=== PATIENT | female | born 1950 | race Hispanic/Latino ===

== ENCOUNTER 2018-07-05 16:03 | Observation (INO) | payer OTHER ==
--- OUTSIDE RECORDS SUMMARY | 2018-07-05 16:06 | XMS REPORT ---
:1950 Author Organization [facility] Address [address] [place] [address] Care Team Providers Name Role Phone CHRISTIAN MAXWELL Unavailable Unavailable Problems This patient has no known problems. Allergies, Adverse Reactions, Alerts This patient has no known allergies or adverse reactions. Medications This patient has no known medications. Results Test Description Test Time Test Comments Text Results Atomic Results Result Comments CT, CHEST, WITH 2017-12-08 16:25:00 FINAL REPORT PATIENT ID: CONTRAST [id number] CT of the chest, abdomen, with contrast Clinical History: history of lap band, concern for displacement Technique: CT of the chest and abdomen is performed with intravenous contrast administration. This exam was performed according to our departmental dose optimization program which includes automated exposure control, adjustment of the mA and/or kV according to patient's size and/or use of iterative reconstructive technique. Comparison Film: Chest radiograph dated February 17, 2012 Discussion: Visualized thyroid gland is unremarkable. No supraclavicular, axillary, mediastinal or hilar lymphadenopathy. Heart and pericardium are unremarkable. There is a tiny hiatal hernia. Distal esophagus appears mildly thick walled. There are trace bilateral pleural effusions, associated with relaxation atelectasis of the adjacent lower lobes. No mass or consolidation is identified in the aerated portion of the long. No bronchiectasis, or bronchial wall thickening. No liver lesion is identified. No biliary ductal dilatation. The gallbladder is distended, no definite radiopaque stone is seen. Spleen, pancreas and adrenal glands are unremarkable. Kidneys demonstrate no mass, hydronephrosis or radiopaque stone. There is a gastric band, without evidence for displacement, or perforation. Surgical clips are also noted in the gastric fundal region. No bowel obstruction. Note is made of colonic diverticulosis. There is no ascites, or free air. No lymphadenopathy. Osseous structures demonstrate degenerative changes. Impression: Status post gastric banding. There is a tiny hiatal hernia. Distal esophagus appears slightly thick walled, correlate clinically for esophagitis. Correlation with endoscopy can also be considered. Trace bilateral pleural effusions. Nonspecific distention of the gallbladder. Colonic diverticulosis. Signed: Juliane Hinton Verified Date/Time: 12/08/2017 16:25:55 Reading Location: [facility] C013Y CT Body Reading Room , ABDOMEN, WITH 2017-12-08 16:25:00 Reason for FINAL REPORT PATIENT ID: CONTRAST exam:->history of lap [id number] CT of the band, concern for chest, abdomen, with displacement contrast Clinical History: history of lap band, concern for displacement Technique: CT of the chest and abdomen is performed with intravenous contrast administration. This exam was performed according to our departmental dose optimization program which includes automated exposure control, adjustment of the mA and/or kV according to patient's size and/or use of iterative reconstructive technique. Comparison Film: Chest radiograph dated February 17, 2012 Discussion: Visualized thyroid gland is unremarkable. No supraclavicular, axillary, mediastinal or hilar lymphadenopathy. Heart and pericardium are unremarkable. There is a tiny hiatal hernia. Distal esophagus appears mildly thick walled. There are trace bilateral pleural effusions, associated with relaxation atelectasis of the adjacent lower lobes. No mass or consolidation is identified in the aerated portion of the long. No bronchiectasis, or bronchial wall thickening. No liver lesion is identified. No biliary ductal dilatation. The gallbladder is distended, no definite radiopaque stone is seen. Spleen, pancreas and adrenal glands are unremarkable. Kidneys demonstrate no mass, hydronephrosis or radiopaque stone. There is a gastric band, without evidence for displacement, or perforation. Surgical clips are also noted in the gastric fundal region. No bowel obstruction. Note is made of colonic diverticulosis. There is no ascites, or free air. No lymphadenopathy. Osseous structures demonstrate degenerative changes. Impression: Status post gastric banding. There is a tiny hiatal hernia. Distal esophagus appears slightly thick walled, correlate clinically for esophagitis. Correlation with endoscopy can also be considered. Trace bilateral pleural effusions. Nonspecific distention of the gallbladder. Colonic diverticulosis. Signed: Mary Jane, Juliane MDReport Verified Date/Time: 12/08/2017 16:25:55 Reading Location: [facility] B1 C013Y CT Body Reading Room C METABOLIC PANEL 2017-12-08 07:08:00 Test Item Value Reference Range Comments SODIUM (BEAKER) (test 145 meq/L 136-145 gbnv=638) POTASSIUM (BEAKER) (test 3.8 meq/L 3.5-5.1 clgy=462) CHLORIDE (BEAKER) (test 117 meq/L 98-107 ogty=077) CO2 (BEAKER) (test pypm=487) 20 meq/L 22-29 BLOOD UREA NITROGEN (BEAKER) 8 mg/dL 7-21 (test abln=243) CREATININE (BEAKER) (test 0.82 mg/dL 0.57-1.25 czun=687) GLUCOSE RANDOM (BEAKER) 72 mg/dL 70-105 (test kuoa=596) CALCIUM (BEAKER) (test 8.3 mg/dL 8.4-10.2 lzds=730) EGFR (BEAKER) (test 69 mL/min/1.73 sq m ESTIMATED GFR IS NOT xggg=9850) ACCURATE CREATININE CLEARANCE IN PREDICTING GLOMERULAR FILTRATION RATE. ESTIMATED GFR IS NOT APPLICABLE FOR DIALYSIS PATIENTS. CBC (HEMOGRAM ONLY)2017-12-08 06:40:00 Test Item Value Reference Range Comments WHITE BLOOD CELL COUNT (BEAKER) (test njvk=315) 8.9 K/ L 3.5-10.5 RED BLOOD CELL COUNT (BEAKER) (test gtug=350) 3.04 M/ L 3.93-5.22 HEMOGLOBIN (BEAKER) (test hres=464) 8.7 GM/DL 11.2-15.7 HEMATOCRIT (BEAKER) (test dcfk=041) 29.3 % 34.1-44.9 MEAN CORPUSCULAR VOLUME (BEAKER) (test upzo=135) 96.4 fL 79.4-94.8 MEAN CORPUSCULAR HEMOGLOBIN (BEAKER) (test 28.6 pg 25.6-32.2 sens=939) MEAN CORPUSCULAR HEMOGLOBIN CONC (BEAKER) (test 29.7 GM/DL 32.2-35.5 hsqf=522) RED CELL DISTRIBUTION WIDTH (BEAKER) (test 16.1 % 11.7-14.4 lhhf=166) PLATELET COUNT (BEAKER) (test bdyc=639) 191 K/CU MM 150-450 MEAN PLATELET VOLUME (BEAKER) (test hmec=749) 12.0 fL 9.4-12.3 NUCLEATED RED BLOOD CELLS (BEAKER) (test 0 /100 WBC 0-0 tvys=880) BASIC METABOLIC [id number] 07:18:00 Test Item Value Reference Range Comments SODIUM (BEAKER) (test 144 meq/L 136-145 jkem=394) POTASSIUM (BEAKER) (test 3.6 meq/L 3.5-5.1 njxm=627) CHLORIDE (BEAKER) (test 119 meq/L 98-107 pkfe=869) CO2 (BEAKER) (test 20 meq/L 22-29 ftlv=293) BLOOD UREA NITROGEN 10 mg/dL 7-21 (BEAKER) (test skiv=617) CREATININE (BEAKER) (test 0.77 mg/dL 0.57-1.25 byvc=860) GLUCOSE RANDOM (BEAKER) 73 mg/dL 70-105 (test zgap=265) CALCIUM (BEAKER) (test 8.1 mg/dL 8.4-10.2 uutl=752) EGFR (BEAKER) (test 74 mL/min/1.73 sq m ESTIMATED GFR IS NOT nvan=1590) ACCURATE CREATININE CLEARANCE IN PREDICTING GLOMERULAR FILTRATION RATE. ESTIMATED GFR IS NOT APPLICABLE FOR DIALYSIS PATIENTS. CBC (HEMOGRAM ONLY)2017-12-07 06:50:00 Test Item Value Reference Range Comments WHITE BLOOD CELL COUNT (BEAKER) (test jdeb=832) 6.7 K/ L 3.5-10.5 RED BLOOD CELL COUNT (BEAKER) (test rarv=472) 2.80 M/ L 3.93-5.22 HEMOGLOBIN (BEAKER) (test onur=310) 8.2 GM/DL 11.2-15.7 HEMATOCRIT (BEAKER) (test pmyr=437) 26.2 % 34.1-44.9 MEAN CORPUSCULAR VOLUME (BEAKER) (test rxlj=129) 93.6 fL 79.4-94.8 MEAN CORPUSCULAR HEMOGLOBIN (BEAKER) (test 29.3 pg 25.6-32.2 xaay=389) MEAN CORPUSCULAR HEMOGLOBIN CONC (BEAKER) (test 31.3 GM/DL 32.2-35.5 tomm=277) RED CELL DISTRIBUTION WIDTH (BEAKER) (test 15.9 % 11.7-14.4 ogvn=970) PLATELET COUNT (BEAKER) (test hohl=303) 192 K/CU MM 150-450 MEAN PLATELET VOLUME (BEAKER) (test hhhf=797) 10.9 fL 9.4-12.3 NUCLEATED RED BLOOD CELLS (BEAKER) (test 0 /100 WBC 0-0 lwmb=456) URINE [id number] 13:00:00 Test Item Value Reference Range Comments CULTURE (BEAKER) (test acns=7886) >100,000 col/mL skin caden BASIC METABOLIC [id number] 08:35:00 Test Item Value Reference Range Comments SODIUM (BEAKER) (test 143 meq/L 136-145 wdho=493) POTASSIUM (BEAKER) (test 3.6 meq/L 3.5-5.1 dfmn=620) CHLORIDE (BEAKER) (test 117 meq/L 98-107 nteq=658) CO2 (BEAKER) (test 21 meq/L 22-29 vhma=542) BLOOD UREA NITROGEN 13 mg/dL 7-21 (BEAKER) (test cjwk=893) CREATININE (BEAKER) (test 0.73 mg/dL 0.57-1.25 ifmb=715) GLUCOSE RANDOM (BEAKER) 73 mg/dL 70-105 (test owfi=836) CALCIUM (BEAKER) (test 7.9 mg/dL 8.4-10.2 srjv=191) EGFR (BEAKER) (test 79 mL/min/1.73 sq m ESTIMATED GFR IS NOT pksq=1835) ACCURATE CREATININE CLEARANCE IN PREDICTING GLOMERULAR FILTRATION RATE. ESTIMATED GFR IS NOT APPLICABLE FOR DIALYSIS PATIENTS. CBC (HEMOGRAM ONLY)2017-12-06 07:47:00 Test Item Value Reference Range Comments WHITE BLOOD CELL COUNT (BEAKER) (test xnun=664) 6.7 K/ L 3.5-10.5 RED BLOOD CELL COUNT (BEAKER) (test aowd=525) 2.78 M/ L 3.93-5.22 HEMOGLOBIN (BEAKER) (test reer=490) 8.1 GM/DL 11.2-15.7 HEMATOCRIT (BEAKER) (test zmst=459) 25.9 % 34.1-44.9 MEAN CORPUSCULAR VOLUME (BEAKER) (test tsvb=293) 93.2 fL 79.4-94.8 MEAN CORPUSCULAR HEMOGLOBIN (BEAKER) (test 29.1 pg 25.6-32.2 joie=361) MEAN CORPUSCULAR HEMOGLOBIN CONC (BEAKER) (test 31.3 GM/DL 32.2-35.5 cccj=465) RED CELL DISTRIBUTION WIDTH (BEAKER) (test 15.8 % 11.7-14.4 qwpa=611) PLATELET COUNT (BEAKER) (test okrv=377) 177 K/CU MM 150-450 MEAN PLATELET VOLUME (BEAKER) (test tkil=206) 11.2 fL 9.4-12.3 NUCLEATED RED BLOOD CELLS (BEAKER) (test 0 /100 WBC 0-0 krbz=975) VITAMIN B12 AND [id number] 12:04:00 Test Item Value Reference Range Comments VITAMIN B12 (BEAKER) (test xmse=041) > pg/mL 213-816 FOLATE (BEAKER) (test bxgp=258) 16.3 ng/mL >=7.0 [id number] 10:53:00 Test Item Value Reference Range Comments FERRITIN (BEAKER) (test wzwb=326) 59 ng/mL 5-275 IRON, TIBC, % SAT. (WITHOUT FERRITIN)2017-12-05 10:19:00 Test Item Value Reference Range Comments IRON (BEAKER) (test utun=501) 56 ug/dL 40-160 TOTAL IRON BINDING CAPACITY (BEAKER) (test 290 ug/dL 250-450 qfne=754) IRON % SATURATION (2) (BEAKER) (test hvvp=7278) 19 % 20-55 BASIC METABOLIC [id number] 07:24:00 Test Item Value Reference Range Comments SODIUM (BEAKER) (test 140 meq/L 136-145 oazb=058) POTASSIUM (BEAKER) (test 3.7 meq/L 3.5-5.1 heye=891) CHLORIDE (BEAKER) (test 113 meq/L 98-107 wakb=120) CO2 (BEAKER) (test 19 meq/L 22-29 enii=792) BLOOD UREA NITROGEN 26 mg/dL 7-21 (BEAKER) (test uxwj=974) CREATININE (BEAKER) (test 0.81 mg/dL 0.57-1.25 etrj=090) GLUCOSE RANDOM (BEAKER) 82 mg/dL 70-105 (test homk=787) CALCIUM (BEAKER) (test 7.9 mg/dL 8.4-10.2 higy=084) EGFR (BEAKER) (test 70 mL/min/1.73 sq m ESTIMATED GFR IS NOT nuca=8668) ACCURATE CREATININE CLEARANCE IN PREDICTING GLOMERULAR FILTRATION RATE. ESTIMATED GFR IS NOT APPLICABLE FOR DIALYSIS PATIENTS. CBC (HEMOGRAM ONLY)2017-12-05 06:10:00 Test Item Value Reference Range Comments WHITE BLOOD CELL COUNT (BEAKER) (test thdz=528) 9.4 K/ L 3.5-10.5 RED BLOOD CELL COUNT (BEAKER) (test fiaw=738) 2.51 M/ L 3.93-5.22 HEMOGLOBIN (BEAKER) (test jmhf=879) 7.3 GM/DL 11.2-15.7 HEMATOCRIT (BEAKER) (test aems=073) 23.6 % 34.1-44.9 MEAN CORPUSCULAR VOLUME (BEAKER) (test mxru=553) 94.0 fL 79.4-94.8 MEAN CORPUSCULAR HEMOGLOBIN (BEAKER) (test 29.1 pg 25.6-32.2 vqte=533) MEAN CORPUSCULAR HEMOGLOBIN CONC (BEAKER) (test 30.9 GM/DL 32.2-35.5 wosz=627) RED CELL DISTRIBUTION WIDTH (BEAKER) (test 15.1 % 11.7-14.4 tnio=825) PLATELET COUNT (BEAKER) (test tqfv=861) 197 K/CU MM 150-450 MEAN PLATELET VOLUME (BEAKER) (test puox=810) 11.5 fL 9.4-12.3 NUCLEATED RED BLOOD CELLS (BEAKER) (test 0 /100 WBC 0-0 jryy=273) HEMOGLOBIN AND [id number] 23:13:00 Test Item Value Reference Range Comments HEMOGLOBIN (BEAKER) (test ctqj=919) 7.9 GM/DL 11.2-15.7 HEMATOCRIT (BEAKER) (test cuzx=329) 25.8 % 34.1-44.9 [id number] 10:35:00 Test Item Value Reference Range Comments PHOSPHORUS (BEAKER) (test tmdk=653) 2.1 mg/dL 2.3-4.7 [id number] 10:35:00 Test Item Value Reference Range Comments MAGNESIUM (BEAKER) (test gprx=615) 1.9 mg/dL 1.6-2.6 BASIC METABOLIC [id number] 10:35:00 Test Item Value Reference Range Comments SODIUM (BEAKER) (test 142 meq/L 136-145 bsrh=907) POTASSIUM (BEAKER) (test 3.8 meq/L 3.5-5.1 zkzz=886) CHLORIDE (BEAKER) (test 113 meq/L 98-107 gqyo=488) CO2 (BEAKER) (test 21 meq/L 22-29 pftf=015) BLOOD UREA NITROGEN 38 mg/dL 7-21 (BEAKER) (test pazg=356) CREATININE (BEAKER) (test 0.82 mg/dL 0.57-1.25 igcv=541) GLUCOSE RANDOM (BEAKER) 83 mg/dL 70-105 (test jzjx=133) CALCIUM (BEAKER) (test 8.3 mg/dL 8.4-10.2 xcdu=597) EGFR (BEAKER) (test 69 mL/min/1.73 sq m ESTIMATED GFR IS NOT phum=0263) ACCURATE CREATININE CLEARANCE IN PREDICTING GLOMERULAR FILTRATION RATE. ESTIMATED GFR IS NOT APPLICABLE FOR DIALYSIS PATIENTS. CBC (HEMOGRAM ONLY)2017-12-04 10:17:00 Test Item Value Reference Range Comments WHITE BLOOD CELL COUNT (BEAKER) (test ixfm=698) 9.7 K/ L 3.5-10.5 RED BLOOD CELL COUNT (BEAKER) (test buoc=127) 2.95 M/ L 3.93-5.22 HEMOGLOBIN (BEAKER) (test dqpm=730) 8.5 GM/DL 11.2-15.7 HEMATOCRIT (BEAKER) (test gffw=400) 27.6 % 34.1-44.9 MEAN CORPUSCULAR VOLUME (BEAKER) (test tyzp=798) 93.6 fL 79.4-94.8 MEAN CORPUSCULAR HEMOGLOBIN (BEAKER) (test 28.8 pg 25.6-32.2 osiy=717) MEAN CORPUSCULAR HEMOGLOBIN CONC (BEAKER) (test 30.8 GM/DL 32.2-35.5 nqao=789) RED CELL DISTRIBUTION WIDTH (BEAKER) (test 15.0 % 11.7-14.4 zuel=571) PLATELET COUNT (BEAKER) (test ovkz=111) 240 K/CU MM 150-450 MEAN PLATELET VOLUME (BEAKER) (test cenr=626) 11.2 fL 9.4-12.3 NUCLEATED RED BLOOD CELLS (BEAKER) (test 0 /100 WBC 0-0 wump=561) URINALYSIS W/ [id number] 08:24:00 Test Item Value Reference Range Comments COLOR (BEAKER) (test jdju=824) Light Yellow CLARITY (BEAKER) (test hptb=342) Clear SPECIFIC GRAVITY UA (BEAKER) (test 1.025 1.001-1.035 bgca=204) PH UA (BEAKER) (test fljz=021) 5.0 5.0-8.0 PROTEIN UA (BEAKER) (test iqlz=074) Negative Negative GLUCOSE UA (BEAKER) (test hlwr=225) Negative Negative KETONES UA (BEAKER) (test ptfm=203) Negative Negative BILIRUBIN UA (BEAKER) (test afun=510) Negative Negative BLOOD UA (BEAKER) (test unzi=613) Small Negative NITRITE UA (BEAKER) (test zvpz=827) Positive Negative LEUKOCYTE ESTERASE UA (BEAKER) (test Moderate Negative vcxm=018) UROBILINOGEN UA (BEAKER) (test urue=579) 0.2 mg/dL 0.2-1.0 RBC UA (BEAKER) (test canx=654) 1 /HPF WBC UA (BEAKER) (test qocp=437) 5 /HPF BACTERIA (BEAKER) (test snag=909) Many MUCUS (BEAKER) (test tovs=3586) Many SOURCE(BEAKER) (test ppqd=4917) Urine, Clean Catch BASIC METABOLIC [id number] 03:41:00 Test Item Value Reference Range Comments SODIUM (BEAKER) (test 140 meq/L 136-145 qiwq=284) POTASSIUM (BEAKER) (test 4.2 meq/L 3.5-5.1 Specimen slightly cdni=932) hemolyzed CHLORIDE (BEAKER) (test 109 meq/L 98-107 kvjp=059) CO2 (BEAKER) (test 21 meq/L 22-29 esof=845) BLOOD UREA NITROGEN 47 mg/dL 7-21 (BEAKER) (test xsrd=360) CREATININE (BEAKER) (test 0.84 mg/dL 0.57-1.25 Specimen slightly yyax=300) hemolyzed GLUCOSE RANDOM (BEAKER) 90 mg/dL 70-105 (test ircz=175) CALCIUM (BEAKER) (test 8.5 mg/dL 8.4-10.2 ngkc=231) EGFR (BEAKER) (test 67 mL/min/1.73 sq m ESTIMATED GFR IS NOT fxot=2186) ACCURATE CREATININE CLEARANCE IN PREDICTING GLOMERULAR FILTRATION RATE. ESTIMATED GFR IS NOT APPLICABLE FOR DIALYSIS PATIENTS. HEPATIC FUNCTION [id number] 03:41:00 Test Item Value Reference Range Comments TOTAL PROTEIN (BEAKER) (test 6.4 gm/dL 6.0-8.3 Specimen slightly hemolyzed helx=984) ALBUMIN (BEAKER) (test 3.4 g/dL 3.5-5.0 Specimen slightly hemolyzed pevs=1933) BILIRUBIN TOTAL (BEAKER) (test 0.4 mg/dL 0.2-1.2 Specimen slightly hemolyzed wajw=128) BILIRUBIN DIRECT (BEAKER) (test 0.1 mg/dL 0.1-0.5 Specimen slightly hemolyzed kwsm=965) ALKALINE PHOSPHATASE (BEAKER) 98 U/L 40-150 (test wsgr=006) AST (SGOT) (BEAKER) (test 19 U/L 5-34 Specimen slightly hemolyzed fpcm=554) ALT (SGPT) (BEAKER) (test 17 U/L 6-55 Specimen slightly hemolyzed sire=667) PROTHROMBIN [id number] 02:41:00 Test Item Value Reference Range Comments PROTIME (BEAKER) (test ersk=056) 15.2 seconds 11.7-14.7 INR (BEAKER) (test eomo=696) 1.2 <=5.9 RECOMMENDED COUMADIN/WARFARIN INR THERAPY RANGESSTANDARD DOSE: 2.0 - 3.0 Includes: PROPHYLAXIS forvenous thrombosis, systemic embolization; TREATMENT for venous thrombosis and/or pulmonary embolus.HIGH RISK: Target INR is 2.5-3.5 for patients with mechanical heart valves.CBC W/PLT COUNT & AUTO [id number] 02:38:00 Test Item Value Reference Range Comments WHITE BLOOD CELL COUNT (BEAKER) (test iglw=903) 14.7 K/ L 3.5-10.5 RED BLOOD CELL COUNT (BEAKER) (test bmjg=669) 3.24 M/ L 3.93-5.22 HEMOGLOBIN (BEAKER) (test ujzf=273) 9.3 GM/DL 11.2-15.7 HEMATOCRIT (BEAKER) (test ljgv=438) 30.1 % 34.1-44.9 MEAN CORPUSCULAR VOLUME (BEAKER) (test cpts=853) 92.9 fL 79.4-94.8 MEAN CORPUSCULAR HEMOGLOBIN (BEAKER) (test 28.7 pg 25.6-32.2 aiuc=194) MEAN CORPUSCULAR HEMOGLOBIN CONC (BEAKER) (test 30.9 GM/DL 32.2-35.5 pmbx=093) RED CELL DISTRIBUTION WIDTH (BEAKER) (test 15.0 % 11.7-14.4 xidu=332) PLATELET COUNT (BEAKER) (test qnfc=770) 268 K/CU MM 150-450 MEAN PLATELET VOLUME (BEAKER) (test pdmc=003) 12.0 fL 9.4-12.3 NUCLEATED RED BLOOD CELLS (BEAKER) (test 0 /100 WBC 0-0 imrr=708) NEUTROPHILS RELATIVE PERCENT (BEAKER) (test 63 % prwp=067) LYMPHOCYTES RELATIVE PERCENT (BEAKER) (test 27 % oqxg=027) MONOCYTES RELATIVE PERCENT (BEAKER) (test 8 % ckra=026) EOSINOPHILS RELATIVE PERCENT (BEAKER) (test 1 % sewz=290) BASOPHILS RELATIVE PERCENT (BEAKER) (test 1 % jqdt=148) NEUTROPHILS ABSOLUTE COUNT (BEAKER) (test 9.28 K/ L 1.56-6.13 jtez=340) LYMPHOCYTES ABSOLUTE COUNT (BEAKER) (test 4.03 K/ L 1.18-3.74 vkuq=058) MONOCYTES ABSOLUTE COUNT (BEAKER) (test 1.11 K/ L 0.24-0.36 ugbc=529) EOSINOPHILS ABSOLUTE COUNT (BEAKER) (test 0.15 K/ L 0.04-0.36 cenx=571) BASOPHILS ABSOLUTE COUNT (BEAKER) (test 0.08 K/ L 0.01-0.08 pjtt=048) IMMATURE GRANULOCYTES-RELATIVE PERCENT (BEAKER) 0 % 0-1 (test eeau=5635)
--- OUTSIDE RECORDS SUMMARY | 2018-07-05 16:06 | XMS REPORT | Clinical Summary ---
:1950 Author Organization [facility] Address [address] [place] [address] Phone Care Team Providers Name Role Phone Unavailable Primary Care Provider Unavailable Allergies No Known Allergies Current Medications Prescription Sig. Disp. Refills Start Date End Date Status solifenacin (VESICARE) Take 10 mg by Active 10 MG mouth daily. tabletIndications: Urinary Urge Incontinence hydroxychloroquine Take 100 mg by Active (PLAQUENIL) 200 mg mouth 2 (two) tabletIndications: times daily. Systemic Lupus Erythematosus pregabalin (LYRICA) 100 Take 100 mg by Active MG capsuleIndications: mouth 2 (two) SLE times daily. predniSONE (DELTASONE) Take 5 mg by mouth Active 2.5 MG daily. tabletIndications: Systemic Lupus Erythematosus BELIMUMAB (BENLYSTA Inject Active IV)Indications: intravenously Systemic Lupus every 30 (thirty) Erythematosus days. levothyroxine Take 50 mcg by Active (SYNTHROID, LEVOTHROID) mouth Every 50 MCG morning on an tabletIndications: empty stomach. hypothyroidism sertraline (ZOLOFT) 25 Take 100 mg by Active MG tabletIndications: mouth daily. major depressive disorder QUEtiapine (SEROQUEL) Take 100 mg by Active 100 MG mouth nightly. tabletIndications: Insomnia C,E,ZINC,COPPER Take 1 tablet by Active 11/PVITK4C/LUT (OCUVITE mouth daily. ADULT 50+ ORAL) omega-3 fatty acids Take 1 g by mouth Active (OMEGA 3) 1,000 mg Cap daily. cyanocobalamin-cobamami Place 1 tablet Active de (B12) 5,000-100 mcg under the tongue Lozg daily. cholecalciferol, Take 1,000 Units Active vitamin D3, (VITAMIN by mouth daily. D3) 1,000 unit capsuleIndications: Vitamin D Deficiency levomefolate-algal oil Take 1 tablet by Active (DEPLIN, ALGAL OIL,) mouth daily. 7.5-90.314 mg Cap traMADol (ULTRAM) 50 mg Take 50 mg by Active tablet mouth every 6 (six) hours as needed for Pain. cyclobenzaprine Take 10 mg by Active (FLEXERIL) 10 MG tablet mouth 3 (three) times daily as needed for Muscle spasms. acetaminophen (TYLENOL) Take 650 mg by Active 325 MG mouth every 6 tabletIndications: Back (six) hours as Pain needed for Pain. pantoprazole (PROTONIX) Take 1 tablet (40 60 tablet 1 12/08/2017 01/07/20 40 MG tablet mg total) by mouth 18 2 (two) times daily for 30 days. Active Problems Problem Noted Date UGIB (upper gastrointestinal bleed) 12/03/2017 Acute on chronic anemia due to blood loss and iron def. 12/03/2017 Rheumatoid arthritis (HCC) 11/16/2007 Thyroid disease Lupus Encounters Date Type Specialty Care Team Description 01/11/2018 [facility] Gastroenterology Jack Hester Encounter MD Ross 01/11/2018 Procedure Pass Gastroenterology 01/11/2018 Surgery GastroenterJack Vasquez UPPER ENDOSCOPY MD Ross 01/08/2018 Anesthesia Event Gastroenterology Ramírez Cuello MD 01/07/2018 Hospital Pre-Admission Testing Encounter 12/07/2017 Procedure Pass Gastroenterology 12/07/2017 Surgery Gastroenterology Royal Barahona UPPER ENDOSCOPY MD Ember 12/06/2017 Anesthesia Event Gastroenterology Shilpa Ramirez MD 12/05/2017 Procedure Pass Gastroenterology 12/04/2017 Anesthesia Event Gastroenterology Livan Jean CRNA 12/04/2017 Procedure Pass Gastroenterology 12/04/2017 Surgery Gastroenterology Jack Hester UPPER ENDOSCOPY MD Ross 12/03/2017 [facility] UGIB (upper - Encounter Medicine MD Dara gastrointestinal 12/08/2017 Brann, bleed);Ulcer of Christopher esophagus with MD Wil bleeding;Acute blood [place], loss anemia MD Timothy after 07/04/2017 Immunizations Name Dates Previously Given Next Due Influenza High Dose Preservative Free IM 12/05/2017 Family History Medical History Relation Name Comments Kidney disease Father Cancer Mother Heart disease Mother Hypertension Mother Relation Name Status Comments Father Mother Social History Tobacco Use Types Packs/Day Years Used Date Former Smoker 0.25 1 Quit: 11/16/1966 Smokeless Tobacco: Never Used Tobacco Cessation: Counseling Given: No Alcohol Use Drinks/Week oz/Week Comments No Sex Assigned at Date Recorded Not on file Last Filed Vital Signs Vital Sign Reading Time Taken Blood Pressure 135/65 01/11/2018 11:26 AM EDUCATIONAL DIAGNOSTICIAN Pulse 78 01/11/2018 11:26 AM EDUCATIONAL DIAGNOSTICIAN Temperature 36.7 C (98 F) 01/11/2018 11:26 AM EDUCATIONAL DIAGNOSTICIAN Respiratory Rate 17 01/11/2018 11:26 AM EDUCATIONAL DIAGNOSTICIAN Oxygen Saturation 97% 01/11/2018 11:26 AM EDUCATIONAL DIAGNOSTICIAN Inhaled Oxygen Concentration - - Weight 124.1 kg (273 lb 11.2 oz) 01/11/2018 9:17 AM EDUCATIONAL DIAGNOSTICIAN Height 157.5 cm (5' 2") 01/11/2018 9:17 AM EDUCATIONAL DIAGNOSTICIAN Body Mass Index 50.06 01/11/2018 9:17 AM EDUCATIONAL DIAGNOSTICIAN Plan of Treatment Not on file Procedures Procedure Name Priority Date/Time Associated Diagnosis Comments COLONOSCOPY 01/11/2018 10:00 AM EDUCATIONAL DIAGNOSTICIAN Malignant neoplasm of esophagus, unspecified location (HCC) UPPER ENDOSCOPY 01/11/2018 10:00 AM EDUCATIONAL DIAGNOSTICIAN Malignant neoplasm of esophagus, unspecified location (HCC) UPPER ENDOSCOPY 12/07/2017 8:00 AM EDUCATIONAL DIAGNOSTICIAN ESOPHAGEAL ULCER Case Notes ADD ON CASE BY DR HESTER UPPER ENDOSCOPY 12/04/2017 2:00 PM EDUCATIONAL DIAGNOSTICIAN GI Bleed after 07/04/2017 Results REPORT OF PROCEDURE - ENDOSCOPY URL (01/11/2018 12:02 PM)Only the most recent of4 resultswithin the time period is included.EKG-SCANNED (12/10/2017 1:21 PM) RHYTHM STRIP - SCAN (12/10/2017 1:21 PM)CT abdomen with IV contrast (2017 10:11 AM) Specimen Performing Laboratory GE RIS Narrative FINAL REPORT CT of the chest, abdomen, with contrast Clinical History:history of lap band, concern for displacement Technique: CT of the chest and abdomen is performed with intravenous contrast administration. This exam was performed according to our departmental dose optimization program which includes automated exposure control, adjustment of the mA and/or kV according to patient's size and/or use of iterative reconstructive technique. Comparison Film:Chest radiograph dated February 17, 2012 Discussion: Visualized [...] the gallbladder. Colonic diverticulosis. Signed: Juliane Hinton MD Report Verified Date/Time:12/08/2017 16:25:55 Reading Location: [facility] C013Y CT Body Reading Room Procedure Note Interface, External Ris In - 12/08/2017 4:28 PM EDUCATIONAL DIAGNOSTICIAN FINAL REPORT CT of the chest, abdomen, with contrast [...] the gallbladder. Colonic diverticulosis. Signed: Juliane Hinton MD Report Verified Date/Time: 12/08/2017 16:25:55 Reading Location: [facility] C013Y CT Body Reading Room chest with IV contrast (12/08/2017 10:11 AM) Specimen Performing Laboratory Vascular Therapies Narrative FINAL REPORT CT of the chest, abdomen, with contrast Clinical History:history of lap band, concern for displacement Technique: CT of the chest and abdomen is performed with intravenous contrast administration. This exam was performed according to our departmental dose optimization program which includes automated exposure control, adjustment of the mA and/or kV according to patient's size and/or use of iterative reconstructive technique. Comparison Film:Chest radiograph dated February 17, 2012 Discussion: Visualized [...] the gallbladder. Colonic diverticulosis. Signed: Juliane Hinton MD Report Verified Date/Time:12/08/2017 16:25:55 Reading Location: [facility] C013Y CT Body Reading Room Procedure Note Interface, External Ris In - 12/08/2017 4:28 PM EDUCATIONAL DIAGNOSTICIAN FINAL REPORT CT of the chest, abdomen, with contrast [...] the gallbladder. Colonic diverticulosis. Signed: Juliane Hinton MD Report Verified Date/Time: 12/08/2017 16:25:55 Reading Location: [facility] C013Y CT Body Reading Room (Hemogram only) (12/08/2017 5:56 AM)Only the most recent of5 resultswithin the time period is included. Component Value Ref Range WBC 8.9 3.5 - 10.5 K/L RBC 3.04 (L) 3.93 - 5.22 M/L Hemoglobin 8.7 (L) 11.2 - 15.7 GM/DL Hematocrit 29.3 (L) 34.1 - 44.9 % MCV 96.4 (H) 79.4 - 94.8 fL MCH 28.6 25.6 - 32.2 pg MCHC 29.7 (L) 32.2 - 35.5 GM/DL RDW 16.1 (H) 11.7 - 14.4 % Platelets 191 150 - 450 K/CU MM MPV 12.0 9.4 - 12.3 fL nRBC 0 0 - 0 /100 WBC Specimen Performing Laboratory Blood - Arm, [address] [address] Basic Metabolic Panel (12/08/2017 5:56 AM)Only the most recent of6 resultswithin the time period is included. Component Value Ref Range Sodium 145 136 - 145 meq/L Potassium 3.8 3.5 - 5.1 meq/L Chloride 117 (H) 98 - 107 meq/L CO2 20 (L) 22 - 29 meq/L BUN 8 7 - 21 mg/dL Creatinine 0.82 0.57 - 1.25 mg/dL Glucose 72 70 - 105 mg/dL Calcium 8.3 (L) 8.4 - 10.2 mg/dL EGFR 69Comment: ESTIMATED GFR IS NOT ACCURATE mL/min/1.73 sq m CREATININE CLEARANCE IN PREDICTING GLOMERULAR FILTRATION RATE. ESTIMATED GFR IS NOT APPLICABLE FOR DIALYSIS PATIENTS. Specimen Performing Laboratory Blood - Arm, Left [address] [address] TRANSFUSION SERVICE REPORT - SCAN (12/07/2017 5:41 PM)Only the most recent of3 resultswithin the time period is included.Prepare Leuko-Red RBC (12/06/2017 11: 54 PM) Component Value Ref Range CROSSMATCH COMPATIBLE Unit ABO O Pos UNIT NUMBER [id number] Status TRANSFUSED Blood Bank Product RED BLOOD CELLS PRODUCT CODE [id number] Specimen Performing Laboratory Other SAFET[place]ACE [place] Transfuse Leuko-Red RBC (12/05/2017 1:49 PM)Only the most recent of2 resultswithin the time period is included.Vitamin B12 and Folate (12/05/2017 9: 42 AM) Component Value Ref Range Vitamin B12 >2000 (H) 213 - 816 pg/mL Folate 16.3 >=7.0 ng/mL Specimen Performing Laboratory Blood [address] [address] Iron, TIBC, % sat. (without ferritin) (12/05/2017 9:42 AM) Component Value Ref Range Iron 56 40 - 160 ug/dL TIBC 290 250 - 450 ug/dL Iron % Saturation 19 (L) 20 - 55 % Specimen Performing Laboratory Blood [address] [address] Ferritin (12/05/2017 9:42 AM) Component Value Ref Range Ferritin 59 5 - 275 ng/mL Specimen Performing Laboratory Blood [address] [address] Hemoglobin and hematocrit (12/04/2017 11:04 PM) Component Value Ref Range Hemoglobin 7.9 (L) 11.2 - 15.7 GM/DL Hematocrit 25.8 (L) 34.1 - 44.9 % Specimen Performing Laboratory Blood - Arm, Right [address] [address] Urine culture (12/04/2017 12:35 PM) Component Value Ref Range Result >100,000 col/mL skin caden Specimen Performing Laboratory Urine - Urine, Voided [address] [address] Phosphorus (12/04/2017 9:51 AM) Component Value Ref Range Phosphorus 2.1 (L) 2.3 - 4.7 mg/dL Specimen Performing Laboratory Blood - Arm, [address] [address] Magnesium (12/04/2017 9:51 AM) Component Value Ref Range Magnesium 1.9 1.6 - 2.6 mg/dL Specimen Performing Laboratory Blood - Arm, [address] [address] Urinalysis w/ Microscopic (12/04/2017 6:34 AM) Component Value Ref Range Color, UA Light Yellow Clarity, UA Clear Specific [place], UA 1.025 1.001 - 1.035 pH, UA 5.0 5.0 - 8.0 Protein, UA Negative Negative Glucose, UA Negative Negative Ketones, UA Negative Negative Bilirubin, UA Negative Negative Blood, UA Small (A) Negative Nitrite, UA Positive (A) Negative Leukocytes, UA Moderate (A) Negative Urobilinogen, UA 0.2 0.2 - 1.0 mg/dL RBC, UA 1 /HPF WBC, UA 5 /HPF Bacteria, UA Many Mucus Many Specimen Source Urine, Clean Catch Specimen Performing Laboratory Urine - Urine, Clean Catch [address] [address] Type and screen, automated (12/04/2017 1:37 AM) Component Value Ref Range ABO/RH AUTOMATED (BEAKER) O POSITIVE Ab Scrn NEGATIVE Specimen Performing Laboratory Blood [address] [address] CBC with platelet count + automated diff (12/04/2017 1:37 AM) Component Value Ref Range WBC 14.7 (H) 3.5 - 10.5 K/L RBC 3.24 (L) 3.93 - 5.22 M/L Hemoglobin 9.3 (L) 11.2 - 15.7 GM/DL Hematocrit 30.1 (L) 34.1 - 44.9 % MCV 92.9 79.4 - 94.8 fL MCH 28.7 25.6 - 32.2 pg MCHC 30.9 (L) 32.2 - 35.5 GM/DL RDW 15.0 (H) 11.7 - 14.4 % Platelets 268 150 - 450 K/CU MM MPV 12.0 9.4 - 12.3 fL nRBC 0 0 - 0 /100 WBC % Neutros 63 % % Lymphs 27 % % Monos 8 % % Eos 1 % % Baso 1 % # Neutros 9.28 (H) 1.56 - 6.13 K/L # Lymphs 4.03 (H) 1.18 - 3.74 K/L # Monos 1.11 (H) 0.24 - 0.36 K/L # Eos 0.15 0.04 - 0.36 K/L # Baso 0.08 0.01 - 0.08 K/L Immature Granulocytes-Relative 0 0 - 1 % Specimen Performing Laboratory Blood [address] [address] Prothrombin time/INR (12/04/2017 1:37 AM) Component Value Ref Range Protime 15.2 (H) 11.7 - 14.7 seconds INR 1.2 <=5.9 Specimen Performing Laboratory Blood [address] [address] Narrative RECOMMENDED COUMADIN/WARFARIN INR THERAPY RANGES STANDARD DOSE: 2.0 - 3.0 Includes: PROPHYLAXIS for venous thrombosis, systemic embolization; TREATMENT for venous thrombosis and/or pulmonary embolus. HIGH RISK: Target INR is 2.5-3.5 for patients with mechanical heart valves. CBC with platelet count + automated diff (12/04/2017 1:37 AM) Specimen Performing Laboratory Blood Narrative The following orders were created for panel order CBC with platelet count + automated diff. Procedure Abnormality Status --------- ------ CBC with platelet count ...[[id number]]AbnormalFinal result Please view results for these tests on the individual orders. Hepatic function panel (12/04/2017 1:37 AM) Component Value Ref Range Protein, Total 6.4Comment: Specimen slightly hemolyzed 6.0 - 8.3 gm/dL Albumin 3.4 (L)Comment: Specimen slightly hemolyzed 3.5 - 5.0 g/dL Total Bilirubin 0.4Comment: Specimen slightly hemolyzed 0.2 - 1.2 mg/dL Bilirubin, Direct 0.1Comment: Specimen slightly hemolyzed 0.1 - 0.5 mg/dL Alkaline Phosphatase 98 40 - 150 U/L AST 19Comment: Specimen slightly hemolyzed 5 - 34 U/L ALT 17Comment: Specimen slightly hemolyzed 6 - 55 U/L Specimen Performing Laboratory Blood [facility] [address] [address] after 07/04/2017
--- OUTSIDE RECORDS SUMMARY | 2018-07-05 16:06 | XMS REPORT | Clinical Summary ---
:1950 Author Organization [facility] Address [address] [place] [address] Care Team Providers Name Role Phone Satnam Mcpherson MD Primary Care Provider Allergies No Known Allergies Current Medications Prescription Sig. Disp. Refills Start Date End Date Status traMADol (ULTRAM) 50 mg Take 50 mg by 2 09/04/2017 Active tablet mouth 2 (two) times a day as needed. for pain VESICARE 5 mg tablet Take 5 mg by 0 07/28/2017 Active mouth once daily. sertraline (ZOLOFT) 100 MG Take 100 mg by 0 09/19/2017 Active tablet mouth once daily. QUEtiapine (SEROquel) 100 Take 100 mg by 0 07/27/2017 Active MG tablet mouth nightly. LYRICA 100 mg capsule Take 100 mg by 1 09/10/2017 Active mouth 2 (two) times a day. methylPREDNISolone (MEDROL TAKE 6 TABLETS ON 0 09/07/2017 Active DOSEPAK) 4 mg tablet DAY 1 DIRECTED ON PACKAGE AND DECREASE BY 1 TAB EACH DAY FOR A TOTAL OF 6 DAYS levothyroxine (SYNTHROID, Take 50 mcg by 0 07/28/2017 Active LEVOXYL) 50 mcg tablet mouth once daily. hydroxychloroquine Take 200 mg by 1 08/21/2017 Active (PLAQUENIL) 200 mg tablet mouth 2 (two) times a day. cyclobenzaprine (FLEXERIL) Take 10 mg by 5 09/04/2017 Active 10 mg tablet mouth 3 (three) times a day as needed. Active Problems No known active problems Encounters Date Type Specialty Care Team Description 03/17/2018 Hospital Encounter Radiology Marco Wagner Lupus encephalitis; MD Alberto Sicca syndrome; Need for prophylactic chemotherapy 03/17/2018 Transcribe Orders Radiology Marco Wagner Lupus encephalitis ( Primary Dx); MD Alberto Sicca syndrome; Need for prophylactic chemotherapy 11/25/2017 Office Visit Orthopedic Surgery Jori Mcclellan Primary osteoarthritis of left knee (Primary Dx); MD URMILA Stress fracture of left ankle with routine healing, subsequent encounter; Chronic pain of left knee 10/21/2017 Office Visit Orthopedic Surgery Jori Mcclellan Stress fracture of left MD URMILA ankle with routine healing, subsequent encounter (Primary Dx) 10/21/2017 Documentation Orthopedic Surgery Ross, Cast Removal RIVAS Thakur 10/02/2017 Documentation Orthopedic Surgery Jose D Cast/Splint Application RIVAS Thakur 09/30/2017 Office Visit Orthopedic Surgery Jori Mcclellan Stress fracture, left ankle, initial encounter for fracture (Primary Dx); MD URMILA Right foot pain; Closed fracture of left ankle, initial encounter after 07/04/2017 Family History Medical History Relation Name Comments Kidney disease Father Arthritis Mother Cancer Mother Relation Name Status Comments Father Mother Social History Tobacco Use Types Packs/Day Years Used Date Never Smoker Alcohol Use Drinks/Week oz/Week Comments No Sex Assigned at Date Recorded Not on file Last Filed Vital Signs Vital Sign Reading Time Taken Blood Pressure - - Pulse - - Temperature - - Respiratory Rate - - Oxygen Saturation - - Inhaled Oxygen Concentration - - Weight 124 kg (274 lb) 09/30/2017 11:36 AM OBSTETRICAL NURSE Height 157.5 cm (5' 2") 09/30/2017 11:36 AM OBSTETRICAL NURSE Body Mass Index 50.12 09/30/2017 11:36 AM OBSTETRICAL NURSE Plan of Treatment Health Maintenance Due Date Last Done Comments BREAST CANCER SCREENING 1998 COLON CANCER SCREENING 1998 SHINGRIX VACCINE (#1) 1998 ZOSTER VACCINE 2008 PNEUMOCOCCAL POLYSACCHARIDE VACCINE AGE 65 AND OVER 2013 PNEUMOCOCCAL-13 2013 INFLUENZA VACCINE 06/16/2018 08/25/2013 Procedures Procedure Name Priority Date/Time Associated Diagnosis Comments XR ANKLE 3+ VW RIGHT Routine 03/17/2018 3:38 Lupus encephalitis Results for this PM CDT Sicca syndrome procedure are in Need for prophylactic the results chemotherapy section. MA ARTHROCENTESIS Routine 11/25/2017 5:40 Primary Results for this ASPIR&/INJ MAJOR PM OBSTETRICAL NURSE osteoarthritis of procedure are in JT/BURSA W/O US left knee the results section. XR KNEE 1 OR 2 VW LEFT Routine 11/25/2017 4:02 Chronic pain of left Results for this PM OBSTETRICAL NURSE knee procedure are in the results section. XR KNEE AP STANDING Routine 11/25/2017 4:02 Chronic pain of left Results for this BILATERAL PM OBSTETRICAL NURSE knee procedure are in the results section. XR ANKLE 3+ VW LEFT Routine 11/25/2017 3:13 Stress fracture of Results for this PM OBSTETRICAL NURSE left ankle with procedure are in routine healing, the results subsequent encounter section. XR ANKLE 3+ VW LEFT Routine 10/21/2017 1:49 Stress fracture of Results for this PM OBSTETRICAL NURSE left ankle with procedure are in routine healing, the results subsequent encounter section. XR FOOT 3+ VW RIGHT Routine 09/30/2017 11:43 Right foot pain Results for this AM OBSTETRICAL NURSE procedure are in the results section. XR ANKLE 3+ VW LEFT Routine 09/30/2017 11:42 Closed fracture of Results for this AM OBSTETRICAL NURSE left ankle, initial procedure are in encounter the results section. after 07/04/2017 Results XR Ankle 3+ Vw Right (03/17/2018 3:38 PM) Narrative Performed At Examination: XR ANKLE 3VW RIGHT [facility] Clinical history: M32.19 Other organ or system involvement in systemic lupus erythematosus, M35.00 Sicca syndromeunspecified, M32.19 Comparison: None Impression: 1.There is no fracture or acute osseous pathology. 2. The ankle mortise is within normal limits. There are small plantar and posterior calcaneal enthesophytes. [facility]-[id number] Procedure Note Interface, Radiology Results Incoming - 03/17/2018 3:46 PM CDT Examination: XR ANKLE 3 VW RIGHT Clinical history: M32.19 Other organ or system involvement in systemic lupus erythematosus, M35.00 Sicca syndrome unspecified, M32.19 Comparison: None Impression: 1. There is no fracture or acute osseous pathology. 2. The ankle mortise is within normal limits. There are small plantar and posterior calcaneal enthesophytes. [facility]-[id number] Performing Organization Address City/State/Zipcode Phone Number [facility] [address] [place] [address] Large Joint Arthrocentesis (11/25/2017 5:40 PM) Narrative Performed At Jori Mcclellan II, MD 11/25/20175:40 PM Large Joint Arthrocentesis Consent given by: patient Timeout: Immediately prior to procedure a time out was called to verify the correct patient, procedure, equipment, program support clerk and site/side marked as required Supporting Documentation Indications: pain and joint swelling Procedure Details Preparation: Patient was prepped and draped in the usual sterile fashion Location: knee - L knee Left side: Needle size: 22 G Approach: anterolateral Left knee medications administered: 1 mL triamcinolone acetonide 40 mg/mL Patient tolerance: patient tolerated the procedure well with no immediate complications XR Knee 1 Or 2 Vw Left (11/25/2017 4:02 PM) Narrative Performed At Bilateral weightbearing images of the knees reveals severe left knee HM [facility] osteoarthrosis. Marginal osteophytes are appreciated. Right total knee arthroplasty prosthesis is well positioned. Left knee patellofemoral arthrosis is noted. The patella is noted to track well within the trochlea. Performing Organization Address [facility] Phone Number [facility] [address] [place] [address] XR Knee Ap Standing Bilateral (11/25/2017 4:02 PM) Narrative Performed At Bilateral weightbearing images of the knees reveals severe left knee HM [facility] osteoarthrosis. Marginal osteophytes are appreciated. Right total knee arthroplasty prosthesis is well positioned. Left knee patellofemoral arthrosis is noted. The patella is noted to track well within the trochlea. Performing Organization Address [facility] Phone Number [facility] [address] [place] [address] XR Ankle 3+ Vw Left (11/25/2017 3:13 PM)Only the most recent of3 resultswithin the time period is included. Narrative Performed At Three-view images of the left ankle reveals evidence of a healing Marrero C HM [facility] nondisplaced fracture. Abundant callus formation is appreciated. Performing Organization Address [facility] Phone Number [facility] [address] [place] [address] XR Foot 3+ Vw Right (09/30/2017 11:43 AM) Narrative Performed At Three-view images of the right foot reveals evidence of a malunited second HM [facility] digit distal phalanx fracture. Abduction angulation noted. Performing Organization Address City/State/Zipcode Phone Number [facility] [address] [place] [address] after 07/04/2017 Insurance Payer Benefit Plan / Group Subscriber ID Type Phone Address MEDICARE MEDICARE PART A AND B xxxxxxxxxx Medicare [place], [place] AETNA AETNA PPO OPEN CHOICE xxxxxxxxx PPO y [phone] [id number]
--- NOTE | 2018-07-05 16:39 | ER ---
Nurse's Notes [facility] Name: Ping Flores Age: 68 yrs Sex: Female : 1950 Arrival Date: 07/05/2018 Time: 16:05 Bed External Waiting Private MD: Satnam Mcpherson V Diagnosis: Fever, unspecified Presentation: 07/05 16:36 Presenting complaint: direct admit from Dr. Mcpherson. Shortly after registering the dm5 patient a room became available and the patient went upstairs. ED Course: 16:05 Patient arrived in ED. sb2 16:05 Satnam Mcpherson MD is Private Physician. sb2 16:38 Satnam Mcpherson MD is Hospitalizing Provider. dm5 Administered Medications: No medications were administered Outcome: 16:39 Decision to Hospitalize by Provider. dm5 16:39 Patient left the ED. dm5 Signatures: Yecenia Dumont, RN RN dm5 Di Torres sb2
[2018-07-05 17:36] LABS: Absolute Lymphocytes (CBC) 1.1 K/uL (0.7-4.9); Absolute Monocytes 1.2 K/uL (0.1-1.3); Absolute Neutrophil 4.7 K/uL (1.8-8.0); Basophils % 0.6 % (0-1.3); Eosinophils % 0.5 % (0-4.4); Hematocrit 39.2 % (36.0-45.0); Lymphocytes % 16.1 % (15.3-44.8); MCH 28.6 pg (27.0-35.0); MCV 87.6 fL (80-100); MPV 9.8 fL (7.6-11.3); Monocytes % 16.6 % (3.3-12.3); RBC Red Blood Cell Count 4.47 M/uL (3.86-4.86)
[2018-07-05 17:41] LABS: Protime INR 1.12
[2018-07-05 18:32] VITALS: BMI 50.8
--- NOTE | 2018-07-05 18:32 | RAD REPORT ---
EXAM DESCRIPTION: RAD - Chest Single View - 07/05/2018 6:20 pm CLINICAL HISTORY: fever of unknown origin Chest pain. COMPARISON: Chest Single View dated 12/03/2017; CHEST SINGLE VIEW dated 06/18/2014; CHEST PA AND LAT 2 VIEW dated 01/01/2012; CHEST PA AND LAT 2 VIEW dated 12/20/2007 FINDINGS: Portable technique limits examination quality. The lungs are grossly clear. The heart is upper limit of normal in size. No displaced fractures. IMPRESSION: No acute intrathoracic process suspected.
[2018-07-05 18:36] LABS: ALT/SGPT 18 U/L (12-78); AST/SGOT 26 U/L (15-37); Albumin 3.3 g/dL (3.4-5.0); Alkaline Phosphatase 105 U/L (45-117); BUN Blood Urea Nitrogen 13 mg/dL (7-18); Bicarbonate 22 mmol/L (21-32); Bilirubin Direct 0.2 mg/dL (0-0.2); Bilirubin Total 0.4 mg/dL (0.2-1.0); Glucose Level 93 mg/dL (74-106); Magnesium 2.3 mg/dL (1.8-2.4); Phosphorus 2.7 mg/dL (2.5-4.9); Potassium 4.2 mmol/L (3.5-5.1); Protein, Total 7.6 g/dL (6.4-8.2); Sodium Level 140 mmol/L (136-145)
[2018-07-05] MEDS ORDERED: ALBUTEROL 2.5 MG/3 ML NEB SOL NEB PRN (21:09)
[2018-07-05] MEDS ORDERED: POLYETHYL GLY 3350 17 GM/DOSE PO PRN (21:14)
[2018-07-05] MEDS ORDERED: DIPHENHYDRAMINE 25 MG TAB/CAP PO PRN (21:14)
[2018-07-05] MEDS ORDERED: ONDANSETRON HCL 40 MG/20 ML VIAL IV PRN (21:14)
--- NOTE | 2018-07-05 21:30 | EKG ---
Test Date: 2018-07-05 Test Time: 17:56:03 Wharf Worker: EDDIE MEASUREMENT RESULTS: Intervals: Rate: 76 AK: 142 QRSD: 86 QT: 408 QTc: 459 [place]: P: 69 AK: 142 QRS: 35 T: 28 INTERPRETIVE STATEMENTS: Normal sinus rhythm Normal ECG Compared to ECG 12/03/2017 15:38:47 No significant changes Electronically Signed On 07-05-18 21:29:53 CDT by Wil Souza
[2018-07-05] MEDS: NACHLORIDE 0.45% 1,000 ML IV SCH (22:11)
[2018-07-06] MEDS: ACETAMINOPHEN 325 MG TABLET PO PRN ×2 (00:31→17:09)
[2018-07-06] MEDS: LEVALBUTEROL 1.25 MG/3 ML NEB NEB SCH ×4 (01:16→21:08)
[2018-07-06] MEDS: IPRATROPIUM BROM 0.5MG/2.5ML NEB SCH ×4 (01:16→21:08)
[2018-07-06 04:43] LABS: Absolute Lymphocytes (CBC) 1.3 K/uL (0.7-4.9); Absolute Monocytes 1.6 K/uL (0.1-1.3); Absolute Neutrophil 7.5 K/uL (1.8-8.0); Basophils % 0.4 % (0-1.3); Eosinophils % 0.1 % (0-4.4); Hematocrit 37.6 % (36.0-45.0); Lymphocytes % 12.1 % (15.3-44.8); MCH 28.8 pg (27.0-35.0); MCV 87.6 fL (80-100); MPV 9.8 fL (7.6-11.3); Monocytes % 15.6 % (3.3-12.3); RBC Red Blood Cell Count 4.29 M/uL (3.86-4.86)
[2018-07-06 04:54] LABS: Magnesium 2.3 mg/dL (1.8-2.4); Potassium 3.9 mmol/L (3.5-5.1)
[2018-07-06] MEDS ORDERED: POTASSIUM CL SA 10 MEQ TAB PO ONE (05:27)
[2018-07-06] MEDS: NACHLORIDE 0.45% 1,000 ML IV SCH ×3 (06:09→17:10)
[2018-07-06 06:56] LABS: Urine Appearance CLOUDY; Urine Bilirubin NEGATIVE (NEG); Urine Blood TRACE (NEG); Urine Color YELLOW; Urine Glucose NEGATIVE (NEG); Urine Protein 1+ (NEG); Urine Urobilinogen 0.2 mg/dL (0.2-1.0); Urine pH 5.5 (5.0-7.0)
[2018-07-06 07:00] LABS: Urine Microscopic Reflex ORDER UMIC
[2018-07-06 07:05] LABS: Urine Bacteria LOADED /HPF (<20); Urine RBC <5 /HPF (NONE SEEN)
[2018-07-06 07:06] LABS: Urine Culture Reflex Order NOT NEEDED
[2018-07-06] MEDS ORDERED: ONDANSETRON 4 MG/2 ML VIAL IV PRN (07:15)
[2018-07-06] MEDS: CEFTRIAXONE/SWI 1gm 1 GM/10 ML SYR IV SCH ×2 (09:55→20:35)
[2018-07-06 09:59] LABS: Urine Appearance CLOUDY; Urine Bilirubin NEGATIVE (NEG); Urine Blood NEGATIVE (NEG); Urine Color YELLOW; Urine Glucose NEGATIVE (NEG); Urine Protein TRACE (NEG); Urine Urobilinogen 0.2 mg/dL (0.2-1.0); Urine pH 5.5 (5.0-7.0)
[2018-07-06 10:31] LABS: Urine Bacteria 20-50 /HPF (<20); Urine Culture Reflex Order REFLEXED; Urine RBC NONE SEEN /HPF (NONE SEEN)
--- NOTE | 2018-07-06 12:10 | RAD REPORT ---
EXAM DESCRIPTION: CT - Abdomen Pelvis W Contrast - 07/06/2018 11:52 am CLINICAL HISTORY: Fever, abdominal pain, prior right renal mass removal COMPARISON: November 2017 TECHNIQUE: Biphasic, helical CT imaging of the abdomen and pelvis was performed following 100 ml non -ionic IV contrast. Oral contrast was given. All CT scans are performed using dose optimization technique as appropriate and may include automated exposure control or mA/KV adjustment according to patient size. FINDINGS: No suspicious findings in the lung bases. The liver, spleen, and pancreas show no suspicious findings. Gallbladder is distended but not dilated . No CT findings to suspect wall thickening or edema. Stones and sludge can be occult. No biliary jostin e dilatation. Symmetric renal function is seen with no hydronephrosis or suspicious renal mass. No pyelonephritis o r acute renal parenchymal process. No perinephric stranding. Urinary bladder is fully contracted limi ting assessment. No bladder calculi identified. No adrenal abnormality. Uterus and ovaries are normal for age. No dilated bowel loops or bowel wall thickening. Patient has a moderate sigmoid diverticulosis withou t diverticulitis. No active GI process identifiable. No free air, free fluid or inflammatory strandin g. No hernia, mass or bulky lymphadenopathy. Lap band is in place. No acute findings near the GE ju nction. Disc and bony degenerative changes are present. No acute or destructive process seen. No cardiomegaly and no pericardial thickening or effusion identified. IMPRESSION: Contrast-enhanced CT imaging shows no emergent finding. Gallbladder is distended but not dilated. Stones and sludge can be occult. No CT findings for gallbla dder wall thickening or edema. No acute or GI process seen. No focal acute finding to explain fever symptoms.
[2018-07-06] MEDS ORDERED: ENOXAPARIN 40 MG/0.4 ML SQ SCH (17:00)
[2018-07-06] MEDS: LOPERAMIDE HCL 2 MG CAPSULE PO PRN ×2 (17:05→20:36)
[2018-07-06] MEDS: ENOXAPARIN 40 MG/0.4 ML SQ SCH (17:09)
--- NOTE | 2018-07-06 17:23 | P.PN ---
Subjective Date of Service: 07/06/18 Chief Complaint: FEVER, CHILLS, Subjective: No new changes TODAY SHE TOLD ME THAT WHEN I ASKED ABOUT PAIN, SHE DOES HAVE URINE BURNING. CHILLS TODAY. Review of Systems 10-point ROS is otherwise unremarkable General: Weakness, Malaise Genitourinary: Dysuria Physical Examination - Vital Signs Temperature: 100.7 F Blood Pressure: 139/62 Pulse: 99 Respirations: 17 Pulse Ox (%): 96 - Physical Exam General: Mild distress, Moderate distress, Obese HEENT: Atraumatic, PERRLA, EOMI Neck: Supple, JVD not distended Respiratory: Clear to auscultation bilaterally, Normal air movement Cardiovascular: Regular rate/rhythm, Normal S1 S2 Gastrointestinal: Normal bowel sounds, No tenderness Musculoskeletal: No tenderness Integumentary: No rashes Neurological: Normal speech, Normal tone, Normal affect Lymphatics: No axilla or inguinal lymphadenopathy - Studies Medications List Reviewed: Yes Assessment And Plan - Current Problems (Diagnosis) (1) UTI (urinary tract infection) Current Visit: Yes Status: Acute Plan: IV ROCEPHINBID CULTURE PENDING STABLE FOR NOW. SHE WIPES FROM BACK TO FRONT. I ADVISE TO CHANGE FROM FRONT TO BACK. USE BIDET FOR HYGIENE AND SHE HAS ALREADY. Qualifiers: Urinary tract infection type: acute cystitis (2) Positive blood culture Current Visit: Yes Status: Acute Plan: THIS MAY BE SKIN MADHAVI IT GRAM NEG ANEROBIC. (3) SLE (systemic lupus erythematosus) Current Visit: Yes Status: Acute Plan: HAS RHEUM MD. Qualifiers: Systemic lupus erythematosus type: other (4) Abnormal gall bladder diagnostic imaging Current Visit: Yes Status: Acute Plan: ORDER SONOGRAM CT SCAN IS DONE.
--- NOTE | 2018-07-06 19:53 | RAD REPORT ---
EXAM DESCRIPTION: US - Abdomen Exam Limited - 07/06/2018 7:17 pm CLINICAL HISTORY: Abdominal pain, abnormal CT study COMPARISON: CT exam July 06 FINDINGS: No gallstones, sludge or other abnormalities within the gallbladder lumen. Well filled gal lbladder shows no wall thickening or pericholecystic fluid. No common duct stone or biliary tree dilatation identified. IMPRESSION: Gallbladder is well filled but otherwise unremarkable. No biliary tree dilatation.
[2018-07-06] MEDS: QUETIAPINE 100MG TAB PO SCH (20:35)
[2018-07-06] MEDS: SERTRALINE HCL 100 MG TAB PO SCH (20:35)
[2018-07-07] MEDS: IPRATROPIUM BROM 0.5MG/2.5ML NEB SCH ×4 (02:00→20:09)
[2018-07-07] MEDS: LEVALBUTEROL 1.25 MG/3 ML NEB NEB SCH ×4 (02:00→20:09)
[2018-07-07] MEDS: NACHLORIDE 0.45% 1,000 ML IV SCH ×2 (03:25→11:07)
[2018-07-07 05:02] LABS: Absolute Lymphocytes (CBC) 1.4 K/uL (0.7-4.9); Absolute Monocytes 1.6 K/uL (0.1-1.3); Absolute Neutrophil 5.8 K/uL (1.8-8.0); Basophils % 0.4 % (0-1.3); Eosinophils % 0.8 % (0-4.4); Hematocrit 35.8 % (36.0-45.0); Lymphocytes % 16.1 % (15.3-44.8); MCH 28.9 pg (27.0-35.0); MCV 86.3 fL (80-100); MPV 9.6 fL (7.6-11.3); Monocytes % 18.2 % (3.3-12.3); RBC Red Blood Cell Count 4.15 M/uL (3.86-4.86)
[2018-07-07 05:28] LABS: Blood Morphology Comment NOT SEEN (NOT SEEN); Magnesium 2.3 mg/dL (1.8-2.4); Platelet Estimate ADEQ; Potassium 4.1 mmol/L (3.5-5.1); Urine White Blood Cell Casts OK
[2018-07-07] MEDS: LEVOTHYROXINE SOD 0.05 MG TABLET PO SCH (05:48)
[2018-07-07] MEDS ORDERED: [UNRECOGNIZED DRUG - OTHER] PO SCH (09:00)
[2018-07-07] MEDS: HYDROXYCHLOROQUINE 200MG TAB PO SCH (09:29)
[2018-07-07] MEDS: PREGABALIN 150 MG CAP PO SCH (09:29)
[2018-07-07] MEDS: CEFTRIAXONE/SWI 1gm 1 GM/10 ML SYR IV SCH (09:31)
[2018-07-07] MEDS: ENOXAPARIN 40 MG/0.4 ML SQ SCH (17:35)
--- NOTE | 2018-07-07 17:42 | P.PN ---
Subjective Date of Service: 07/07/18 Chief Complaint: FEVER, CHILLS, Subjective: Improving (LOT BETTER.) TODAY SHE TOLD ME THAT WHEN I ASKED ABOUT PAIN, SHE DOES HAVE URINE BURNING. CHILLS TODAY. Review of Systems 10-point ROS is otherwise unremarkable General: Weakness, Malaise Physical Examination - Vital Signs Temperature: 98.7 F Blood Pressure: 128/58 Pulse: 90 Respirations: 20 Pulse Ox (%): 96 - Physical Exam General: Alert, In no apparent distress, Obese HEENT: Atraumatic, PERRLA, EOMI Neck: Supple, JVD not distended Respiratory: Clear to auscultation bilaterally, Normal air movement Cardiovascular: Regular rate/rhythm, Normal S1 S2 Gastrointestinal: Normal bowel sounds, No tenderness Musculoskeletal: No tenderness Integumentary: No rashes Neurological: Normal speech, Normal tone, Normal affect Lymphatics: No axilla or inguinal lymphadenopathy - Studies Medications List Reviewed: Yes Assessment And Plan - Current Problems (Diagnosis) (1) UTI (urinary tract infection) Current Visit: Yes Status: Acute Plan: IV ROCEPHINBID CULTURE PENDING STABLE FOR NOW. SHE WIPES FROM BACK TO FRONT. I ADVISE TO CHANGE FROM FRONT TO BACK. USE BIDET FOR HYGIENE AND SHE HAS ALREADY. FEELS BETER STILL WEAK ID ON BLOOD CS PENDING. DC IN AM . Qualifiers: Urinary tract infection type: acute cystitis (2) Positive blood culture Current Visit: Yes Status: Acute Plan: THIS MAY BE SKIN MADHAVI IT GRAM NEG ANEROBIC. (3) SLE (systemic lupus erythematosus) Current Visit: Yes Status: Acute Plan: HAS RHEUM MD. Qualifiers: Systemic lupus erythematosus type: other (4) Abnormal gall bladder diagnostic imaging Current Visit: Yes Status: Acute Plan: ORDER SONOGRAM CT SCAN IS DONE.
[2018-07-07] MEDS: SERTRALINE HCL 100 MG TAB PO SCH (21:00)
[2018-07-07] MEDS: QUETIAPINE 100MG TAB PO SCH (21:00)
[2018-07-08] MEDS: LEVALBUTEROL 1.25 MG/3 ML NEB NEB SCH ×2 (01:55→07:51)
[2018-07-08] MEDS: IPRATROPIUM BROM 0.5MG/2.5ML NEB SCH ×2 (01:55→07:51)
[2018-07-08 04:24] LABS: Absolute Lymphocytes (CBC) 1.7 K/uL (0.7-4.9); Absolute Monocytes 1.2 K/uL (0.1-1.3); Absolute Neutrophil 4.2 K/uL (1.8-8.0); Basophils % 0.8 % (0-1.3); Eosinophils % 2.5 % (0-4.4); Hematocrit 34.7 % (36.0-45.0); Lymphocytes % 23.2 % (15.3-44.8); MCH 29.2 pg (27.0-35.0); MCV 87.2 fL (80-100); MPV 9.6 fL (7.6-11.3); RBC Red Blood Cell Count 3.98 M/uL (3.86-4.86)
[2018-07-08 04:26] LABS: Magnesium 2.5 mg/dL (1.8-2.4); Potassium 3.3 mmol/L (3.5-5.1)
[2018-07-08] MEDS ORDERED: POTASSIUM CL SA 10 MEQ TAB PO ONE (04:40)
[2018-07-08 04:57] LABS: Monocytes % 16.7 % (3.3-12.3)
[2018-07-08] MEDS: LEVOTHYROXINE SOD 0.05 MG TABLET PO SCH (05:39)
[2018-07-08 08:31] VITALS: BP 116/57; TEMP 97.4; O2SAT 94
[2018-07-08] MEDS: HYDROXYCHLOROQUINE 200MG TAB PO SCH (08:59)
[2018-07-08] MEDS: PREGABALIN 150 MG CAP PO SCH (08:59)
--- NOTE | 2018-07-08 12:47 | P.DS ---
Admission Date: 07/05/18 Discharge Date: 07/08/18 Disposition: ROUTINE DISCHARGE Discharge Condition: FAIR Reason for Admission: FEVER, CHILLS, - Problems (1) UTI (urinary tract infection) Status: Acute Qualifiers: Urinary tract infection type: acute cystitis (2) Positive blood culture Status: Acute (3) SLE (systemic lupus erythematosus) Status: Acute Qualifiers: Systemic lupus erythematosus type: other (4) Abnormal gall bladder diagnostic imaging Status: Acute Hospital Course: MS APARICIO COMES WITH UROSEPSIS. DID WELL ON IV ROCEPHIN. SHE HAS E COLI FROM URINE AND OTHER BACTERIA IS A COLONIZED BACTERIA FIRST URINE SAMPLE WAS UNCLEAN AND SECOND WAS ST CATH AT MY ORDER. SHE IS SENT HOME ON ORAL CEFTIN. SHE WILL FU IN TWO WEEKS AT OFFICE. Vital Signs/Physical Exam: Temp Pulse Resp BP Pulse Ox 97.4 F 83 17 116/57 L 93 07/08/18 08:00 07/08/18 08:00 07/08/18 08:00 07/08/18 08:00 07/08/18 08:00 Laboratory Data at Discharge: WBC 7.4 K/uL (4.3-10.9) D 07/08/18 03:46 Hgb 11.6 g/dL (12.0-15.0) L 07/08/18 03:46 Hct 34.7 % (36.0-45.0) L 07/08/18 03:46 Plt Count 247 K/uL (152-406) 07/08/18 03:46 PT 13.2 SECONDS (9.5-12.5) H 07/05/18 17:20 INR 1.12 07/05/18 17:20 APTT 36.1 SECONDS (24.3-36.9) 07/05/18 17:20 Sodium 140 mmol/L (136-145) 07/08/18 03:46 Potassium 3.3 mmol/L (3.5-5.1) L 07/08/18 03:46 BUN 11 mg/dL (7-18) 07/08/18 03:46 Creatinine 1.10 mg/dL (0.55-1.3) 07/08/18 03:46 Glucose 93 mg/dL (74-106) 07/08/18 03:46 Phosphorus 2.7 mg/dL (2.5-4.9) 07/05/18 17:20 Magnesium 2.5 mg/dL (1.8-2.4) H 07/08/18 03:46 Total Bilirubin 0.4 mg/dL (0.2-1.0) 07/05/18 17:20 AST 26 U/L (15-37) 07/05/18 17:20 ALT 18 U/L (12-78) 07/05/18 17:20 Alkaline Phosphatase 105 U/L (45-117) 07/05/18 17:20 Home Medications: Hydroxychloroquine [Plaquenil*] 200 mg PO DAILY 06/18/14 Levothyroxine Sodium [Unithroid] 50 mcg PO DAILY 06/18/14 Quetiapine Fumarate [Seroquel] 100 mg PO BEDTIME 06/18/14 Sertraline [Zoloft*] 100 mg PO BEDTIME 06/18/14 Depline 15 mg PO DAILY 07/06/18 Pregabalin [Lyrica] 150 mg PO BID 07/06/18 Cefuroxime [Ceftin] 250 mg PO BID #20 tab 07/08/18 New Medications: Cefuroxime [Ceftin] 250 mg PO BID #20 tab Patient Discharge Instructions: NO CHANGES IN MEDICATIONS.
== END 2018-07-08 10:30 | disposition home or self-care (01) ==
LOC: ER 16:03 → 4TH 16:17 → OBSVTOIN 07-08 07:39 → INTOOBSV 07-08 07:39
PROVIDERS: ADMIT Internal Medicine; ATTEND Internal Medicine
DX: N30.00 Acute cystitis without hematuria (principal); B96.20 Unspecified Escherichia coli [E. coli] as the cause of diseases classified elsewhere; M32.9 Systemic lupus erythematosus, unspecified; E03.9 Hypothyroidism, unspecified; K21.9 Gastro-esophageal reflux disease without esophagitis; Z85.528 Personal history of other malignant neoplasm of kidney; R93.3 Abnormal findings on diagnostic imaging of other parts of digestive tract
CPT/HCPCS: 36415 ×3; 71045; 74177; 76705; 80048 ×4; 80076; 81001; 82274; 82306; 82607; 83735 ×4; 84100; 84443; 85025 ×4; 85610; 85730; 87040 ×3; 87045; 87046; 87077 ×4; 87086 ×2; 87088 ×2; 87177; 87186 ×4; 87205; 87209; 87493; 89055; 93005; 94640; G0378 ×2; J0696 ×3; J1650 ×2; Q9967; 81003; 81015; G0379; J2405

== ENCOUNTER 2022-12-10 23:51 | Inpatient (IN) | payer OTHER ==
--- OUTSIDE RECORDS SUMMARY | 2022-12-10 23:56 | XMS REPORT | Continuity of Care Document ---
:1950 Author Organization [facility] t Address [address] [place] [address] Care Team Providers Name Role Phone Satnam Valerio Primary Care Physician Som SIMONS, Brynn Gruber Attending Clinician Unavailable Only, Ang Db Test Attending Clinician Unavailable Evelia Nelson Attending Clinician EVELIA MOELLER Attending Clinician Unavailable Abel COREAS, Padilla Marquez Attending Clinician Doctor Unassigned, Twilight Attending Clinician Unavailable MICHAEL FOX M.D. Attending Clinician Unavailable CHRISTIAN MAXWELL Attending Clinician Unavailable CHRISTIAN MAXWELL Admitting Clinician Unavailable Payers Payer Name Policy Type Policy Number Effective Date Expiration Date S ource Problems Condition Condition Condition Status Onset Resolution Last Treating Co mments Source Name Details Category Date Date Treatment Clinician Date UGIB UGIB Disease Active [facility] gastrointe 00:00: Me dical stinal stinal 00 Center bleed) bleed) Acute on Acute on Disease Active [facility] chronic [facility] anemia due anemia due 00:00: Me dical to blood to blood 00 Center loss and loss and iron def. iron def. Rheumatoid Rheumatoid Disease Active [facility] arthritis arthritis 11-16 [facility] 00:00: Medical 00 Center Left knee Left knee Problem Active [facility] pain, pain, [id number] Physic i unspecifie unspecifie an s d d chronicity chronicity Arthritis Arthritis Problem Active [facility] of knee, of knee, [id number] Ph ysici left left ans Thyroid Thyroid Disease Active [facility] St disease disease [facility] Lupus Lupus Disease Active [facility] No known No known Disease Metho di active active st problems problems Hospit a l Allergies, Adverse Reactions, Alerts Allergy Allergy Status Severity Reaction(s) Onset Inactive Treating Comm ents Source Name Type Date Date Clinician NO KNOWN Drug Active Univers ALLERGIE Class ity of [facility] Family History Family Member Diagnosis Comments Start Date Stop Date Source Natural father Kidney disease [facility] Natural father Kidney disease Method [facility] Natural mother Cancer [facility] Natural mother Heart disease [facility] Natural mother Hypertension [facility] Natural mother Arthritis [facility] Natural mother Cancer [facility] Social History Social Habit Start Date Stop Date Quantity Comments Source Cigarettes smoked 2017-12-03 2017-12-[address] [facility] current (pack per 00:00:00 00:00:00 Medical Center day) - Reported Cigarette 2017-12-03 2017-12-[address] [facility] pack-years 00:00:00 00:00:00 [facility] Tobacco use and 2017-12-03 2017-12-[address] [facility] [address] Diana kes exposure 00:00:00 00:00:00 [facility] Alcohol intake 2017-09-30 2017-09-30 Current [facility] 00:00:00 00:00:00 non-drinker of Hospital alcohol (finding) History of tobacco 1966-11-16 [facility] Sex [birth year]igned At [birth year] [facility] 00:00:00 00:00:00 Hospital Smoking Status Start Date Stop Date Source Never smoked tobacco [facility] Former smoker 2017-04-22 00:00:00 2017-04-22 00:00:00 [facility] Medications Ordered Filled Start Stop Current Ordering Indication Dosage Frequency Signature Comments Components Source Medication Medication Date Date Medication? Clinician (SIG) Name Name levomefolat 2019-0 Yes Take by Uni vers e-algal oil 8-21 mouth. ity of (DEPLIN, 18:58: [place] ALGAL OIL,) 16 Medical 15-90.314 Branch mg Cap levomefolat 2019-0 Yes Take by Uni vers e-algal oil 8-21 mouth. ity of (DEPLIN, 18:58: [place] ALGAL OIL,) 16 Medical 15-90.314 Branch mg Cap levomefolat 2019-0 Yes Take by Uni vers e-algal oil 8-21 mouth. ity of (DEPLIN, 18:58: [place] ALGAL OIL,) 16 Medical 15-90.314 Branch mg Cap levomefolat 2019-0 Yes Take by Uni vers e-algal oil 8-21 mouth. ity of (DEPLIN, 18:58: [place] ALGAL OIL,) 16 Medical 15-90.314 Branch mg Cap levomefolat 2019-0 Yes Take by Uni vers e-algal oil 8-21 mouth. ity of (DEPILANA, 18:58: [place] ALGAL OIL,) 16 Medical 15-90.314 Branch mg Cap levomefolat 2019-0 Yes Take by Uni vers e-algal oil 8-21 mouth. ity of (DEPLIN, 18:58: [place] ALGAL OIL,) 16 Medical 15-90.314 Branch mg Cap levomefolat 2019-0 Yes Take by Uni vers e-algal oil 8-21 mouth. ity of (DEPLIN, 18:58: [place] ALGAL OIL,) 16 Medical 15-90.314 Branch mg Cap levomefolat 2019-0 Yes Take by Uni vers e-algal oil 8-21 mouth. ity of (DEPLIN, 18:58: [place] ALGAL OIL,) 16 Medical 15-90.314 Branch mg Cap levomefolat 2019-0 Yes Take by Uni vers e-algal oil 8-21 mouth. ity of (DEPLIN, 18:58: [place] ALGAL OIL,) 16 Medical 15-90.314 Branch mg Cap levomefolat 2019-0 Yes Take by Uni vers e-algal oil 8-21 mouth. ity of (DEPLIN, 18:58: [place] ALGAL OIL,) 16 Medical 15-90.314 Branch mg Cap levomefolat 2019-0 Yes Take by Uni vers e-algal oil 8-21 mouth. ity of (DEPLIN, 18:58: [place] ALGAL OIL,) 16 Medical 15-.314 Branch mg Cap Diclofenac Diclofenac Yes MICHAEL APPLY 4 [facility] Sodium 1 % Sodium 1 % -25 FOX Ellie GRAMS Physici Transdermal Transdermal 00:00: TOPICALLY ans Gel Gel 00 TO AFFECTED AREA (LOWER EXTREMITIE S) 4 TIMES DAILY. DO NOT APPLY MORE THAN 16 GRAMS DAILY TO ANY ONE AFFECTED JOINT solifenacin Yes urinary 10mg QD Take [address] (VESICARE) 2-26 urge by mouth Lukes 10 MG 13:19: incontinenc daily. Med ical tablet 38 e Center hydroxychlo Yes systemic 100mg Q.5D Take [address] roquine 2-26 lupus mg by Jose (PLAQUENIL) 13:19: erythematos mouth 2 Medical 200 mg 38 us (two) Center tablet times daily. pregabalin Yes 100mg Q.5D Take [address] (LYRICA) 2-26 mg by Lukes 100 MG 13:19: mouth 2 Medical capsule 38 (two) Center times daily. predniSONE Yes systemic 5mg QD Take [address] (DELTASONE) 2-26 lupus by mouth [place]is es 2.5 MG 13:19: erythematos daily. Me dical tablet 38 Center BELIMUMAB Yes systemic Inject [facility] (BENLYSTA 2-26 lupus intravenou [place] es IV) 13:19: erythematos sly every M edical 38 us 30 Center (thirty) days. levothyroxi Yes hypothyroid 50ug Take [address] ne 2-26 ism mcg by Jose (SYNTHROID, 13:19: mouth Medic al LEVOTHROID) 38 Every Center 50 MCG morning on tablet an empty stomach. sertraline Yes major 100mg QD Take [address] (ZOLOFT) 25 2-26 depressive mg by L ukes MG tablet 13:19: disorder mouth Med ical 38 daily. [place] QUEtiapine Yes 100mg QD Take [address] (SEROQUEL) 2-26 mg by Lukes 100 MG 13:19: mouth Medical tablet 38 nightly. [place] C,E,ZINC,CO Yes 1{tbl} QD Take [address] PPER 2-26 tablet by Lukes 11/FROGI5N/ 13:19: mouth Medic al LUT 38 daily. Center (OCUVITE ADULT 50+ ORAL) omega-3 2017- Yes 1g QD Take [address] fatty acids 2-26 by mouth Luke s (OMEGA 3) 13:19: daily. Medica l 1,000 mg 38 Center Cap cyanocobala 2017-0 Yes 1{tbl} QD Place [address] min-cobamam 2-26 tablet [facility] herman (B12) 13:19: under the Med ical 5,000-100 38 tongue Center mcg Lozg daily. cholecalcif Yes vitamin D 1000U QD Take 1,[address] gomez, 2-26 deficiency Units by Luke s vitamin D3, 13:19: mouth Medic al (VITAMIN 38 daily. Center D3) 1,000 unit capsule levomefolat Yes 1{tbl} QD Take [address] e-algal oil 2-26 tablet by Addis es (DEPLIN, 13:19: mouth Medical ALGAL OIL,) 38 daily. Center 7.5-90.314 mg Cap traMADol Yes 50mg Take [address] (ULTRAM) 50 2-26 by mouth Luke s mg tablet 13:19: every 6 Medic al 38 (six) Center hours as needed for Pain. cyclobenzap Yes 10mg Take [address] rine 2-26 by mouth 3 Lukes (FLEXERIL) 13:19: (three) Medi gemma 10 MG 38 times Center tablet daily as needed for Muscle spasms. acetaminoph Yes back pain 650mg Take [address] en 2-26 mg by Lukes (TYLENOL) 13:19: mouth Medical 325 MG 38 every 6 Center tablet (six) hours as needed for Pain. sertraline 2016-11 Yes 100mg QD Take 100 Me thodi (ZOLOFT) 1-[address] 100 MG 00:00: mouth once Hospi ta tablet 00 daily. l LYRICA 100 2016-11 Yes 100mg Q.5D Take 100 Me thodi mg capsule 0-[address] 00:00: mouth 2 Hospita 00 (two) l times a day. methylPREDN 2016-11 Yes TAKE 6 Meth ulysses ISolone 0-[address] (MEDROL 00:00: DAY 1 Hospit a DOSEPAK) 4 00 DIRECTED l mg tablet ON PACKAGE AND DECREASE BY 1 TAB EACH DAY FOR A TOTAL OF 6 DAYS cyclobenzap 2016-11 Yes 10mg [id number] Take 10 mg Methodi rine 0-[id number] (FLEXERIL) 00:00: 3D (three) Hosp kodi 10 mg 00 times a l tablet day as needed. traMADol 2016-11 Yes 50mg Q.5D Take 50 mg Met hodi (ULTRAM) 50 0-[address] mg tablet 00:00: (two) Hospita 00 times a l day as needed. for pain hydroxychlo 2016-11 Yes 200mg Q.5D Take 200 M ethodi roquine 0-[address] (PLAQUENIL) 00:00: mouth 2 Hos brandee 200 mg 00 (two) l tablet times a day. VESICARE 5 Yes 5mg QD Take 5 mg Me thodi mg tablet 9-[address] 00:00: once Hospita 00 daily. l levothyroxi 2016- Yes 50ug QD Take 50 Met hodi ne 9-[address] (SYNTHROID, 00:00: mouth once Hospita LEVOXYL) 50 00 daily. l mcg tablet QUEtiapine Yes 100mg QD Take 100 Me thodi (SEROquel) 9-[address] 100 MG 00:00: mouth Hospita tablet 00 nightly. l PREGABALIN 2016- Yes Take by [facility] ers (LYRICA 4-06 mouth. ity of ORAL) 15:53: [address] CYCLOSPORIN 2017-[address] in Un [place] E (RESTASIS 4-06 each eye. ity of OPHTHALMIC) 15:53: [address] PREGABALIN 2016- Yes Take by [facility] ers (LYRICA 4-06 mouth. ity of ORAL) 15:53: [address] CYCLOSPORIN 2016-[address] in Un [place] E (RESTASIS 4-06 each eye. ity of OPHTHALMIC) 15:53: [address] PREGABALIN 2016- Yes Take by [facility] ers (LYRICA 4-06 mouth. ity of ORAL) 15:53: [address] CYCLOSPORIN 2017-[address] in Un [place] E (RESTASIS 4-06 each eye. ity of OPHTHALMIC) 15:53: [place] [address] Medical Branch PREGABALIN 2017-0 Yes Take by Univ ers (LYRICA 4-06 mouth. ity of ORAL) 15:53: [place] [address] Medical Branch CYCLOSPORIN 2017-[address] in Un [place] E (RESTASIS 4-06 each eye. ity of OPHTHALMIC) 15:53: [place] [address] Medical Branch PREGABALIN 2017-0 Yes Take by Univ ers (LYRICA 4-06 mouth. ity of ORAL) 15:53: [place] [address] Medical Branch CYCLOSPORIN 2017-[address] in Un [place] E (RESTASIS 4-06 each eye. ity of OPHTHALMIC) 15:53: [place] [address] Medical Branch PREGABALIN 2017-0 Yes Take by Univ ers (LYRICA 4-06 mouth. ity of ORAL) 15:53: [place] [address] Medical Branch CYCLOSPORIN 2017-[address] in Un [place] E (RESTASIS 4-06 each eye. ity of OPHTHALMIC) 15:53: [place] [address] Medical Branch PREGABALIN 2017-0 Yes Take by Univ ers (LYRICA 4-06 mouth. ity of ORAL) 15:53: [place] [address] Medical Branch CYCLOSPORIN 2017-[address] in Un [place] E (RESTASIS 4-06 each eye. ity of OPHTHALMIC) 15:53: [place] [address] Medical Branch PREGABALIN 2017-0 Yes Take by Univ ers (LYRICA 4-06 mouth. ity of ORAL) 15:53: [place] [address] Medical Branch CYCLOSPORIN 2017-[address] in Un [place] E (RESTASIS 4-06 each eye. ity of OPHTHALMIC) 15:53: [place] [address] Medical Branch PREGABALIN 2017-0 Yes Take by Univ ers (LYRICA 4-06 mouth. ity of ORAL) 15:53: [place] [address] Medical Branch CYCLOSPORIN 2017-[address] in Un [place] E (RESTASIS 4-06 each eye. ity of OPHTHALMIC) 15:53: [place] [address] Medical Branch PREGABALIN 2017-0 Yes Take by Univ ers (LYRICA 4-06 mouth. ity of ORAL) 15:53: [place] [address] Medical Branch CYCLOSPORIN 2017-[address] in Un [place] E (RESTASIS 4-06 each eye. ity of OPHTHALMIC) 15:53: [place] [address] Medical Branch PREGABALIN 2017-0 Yes Take by Univ ers (LYRICA -06 mouth. ity of ORAL) 15:53: [address] CYCLOSPORIN 2017-[address] in Un [place] E (RESTASIS 4-06 each eye. ity of OPHTHALMIC) 15:53: [address] predniSONE 2017-0 Yes 5mg Take 5 mg Un [place]kay 5 mg tablet 3-31 by mouth ity of 00:00: daily. [place] [facility] predniSONE 2017-0 Yes 5mg Take 5 mg Un kaykay 5 mg tablet 3-31 by mouth ity of 00:00: daily. [place] [facility] predniSONE 2017-0 Yes 5mg Take 5 mg Un [place] 5 mg tablet 3-31 by mouth ity of 00:00: daily. [place] [facility] predniSONE 2017-0 Yes 5mg Take 5 mg Un [place]kay 5 mg tablet 3-31 by mouth ity of 00:00: daily. [place] [facility] predniSONE 2017-0 Yes 5mg Take 5 mg Un [place] 5 mg tablet 3-31 by mouth ity of 00:00: daily. [place] [facility] predniSONE 2017-0 Yes 5mg Take 5 mg Un [place] 5 mg tablet 3-31 by mouth ity of 00:00: daily. [place] [facility] predniSONE 2017-0 Yes 5mg Take 5 mg Un [place] 5 mg tablet 3-31 by mouth ity of 00:00: daily. [place] [facility] predniSONE 2017-0 Yes 5mg Take 5 mg Un [place] 5 mg tablet 3-31 by mouth ity of 00:00: daily. [place] [facility] predniSONE 2017-0 Yes 5mg Take 5 mg Un [place] 5 mg tablet 3-31 by mouth ity of 00:00: daily. [place] [facility] predniSONE 2017-0 Yes 5mg Take 5 mg Un [place] 5 mg tablet 3-31 by mouth ity of 00:00: daily. [place] [facility] predniSONE 2017-0 Yes 5mg Take 5 mg Un [place] 5 mg tablet 3-31 by mouth ity of 00:00: daily. [address] traMADOL 50 2017-0 Yes TAKE 1 Univ ers mg tablet 3-20 TABLET BY ity o f 00:00: MOUTH [place] [address] TWICE A Medical DAY Branch NEEDED FOR PAIN QUEtiapine 2017-0 Yes TAKE 1 Unive rs 100 mg 3-20 TABLET BY ity of tablet 00:00: MOUTH AT [place] [address] BEDTIME Medical Branch hydroxychlo Yes TAKE 1 Univ ers roquine 200 3-20 TABLET BY ity of mg tablet 00:00: MOUTH [place] EVERY DAY Medical Branch DIRECTED traMADOL 50 Yes TAKE 1 Univ ers mg tablet 3-20 TABLET BY ity o f 00:00: MOUTH [place] TWICE A Medical DAY Branch NEEDED FOR PAIN QUEtiapine Yes TAKE 1 Unive rs 100 mg 3-20 TABLET BY ity of tablet 00:00: MOUTH [facility] BEDTIME Medical Branch QUEtiapine Yes TAKE 1 Unive rs 100 mg 3-20 TABLET BY ity of tablet 00:00: MOUTH [facility] BEDTIME Medical Branch hydroxychlo Yes TAKE 1 Univ ers roquine 200 3-20 TABLET BY ity of mg tablet 00:00: MOUTH [place] EVERY DAY Medical Branch DIRECTED traMADOL 50 Yes TAKE 1 Univ ers mg tablet 3-20 TABLET BY ity o f 00:00: MOUTH [place] TWICE A Medical DAY Branch NEEDED FOR PAIN QUEtiapine Yes TAKE 1 Unive rs 100 mg 3-20 TABLET BY ity of tablet 00:00: MOUTH [facility] BEDTIME Medical Branch hydroxychlo Yes TAKE 1 Univ ers roquine 200 3-20 TABLET BY ity of mg tablet 00:00: MOUTH [place] EVERY DAY Medical Branch DIRECTED hydroxychlo Yes TAKE 1 Univ ers roquine 200 3-20 TABLET BY ity of mg tablet 00:00: [facility] EVERY DAY Medical Branch DIRECTED traMADOL 50 Yes TAKE 1 Univ ers mg tablet 3-20 TABLET BY ity o f 00:00: MOUTH [place] TWICE A Medical DAY Branch NEEDED FOR PAIN QUEtiapine Yes TAKE 1 Unive rs 100 mg 3-20 TABLET BY ity of tablet 00:00: MOUTH [facility] BEDTIME Medical Branch hydroxychlo Yes TAKE 1 Univ ers roquine 200 3-20 TABLET BY ity of mg tablet 00:00: MOUTH [place] EVERY DAY Medical Branch DIRECTED traMADOL 50 Yes TAKE 1 Univ ers mg tablet 3-20 TABLET BY ity o f 00:00: MOUTH [place] TWICE A Medical DAY Branch NEEDED FOR PAIN QUEtiapine Yes TAKE 1 Unive rs 100 mg 3-20 TABLET BY ity of tablet 00:00: MOUTH AT [place] BEDTIME Medical Branch hydroxychlo 2017 Yes TAKE 1 Univ ers roquine 200 3-20 TABLET BY ity of mg tablet 00:00: MOUTH [place] EVERY DAY Medical Branch DIRECTED traMADOL 50 Yes TAKE 1 Univ ers mg tablet 3-20 TABLET BY ity o f 00:00: MOUTH [place] TWICE A Medical DAY Branch NEEDED FOR PAIN QUEtiapine Yes TAKE 1 Unive rs 100 mg 3-20 TABLET BY ity of tablet 00:00: MOUTH AT [place] BEDTIME Medical Branch hydroxychlo Yes TAKE 1 Univ ers roquine 200 3-20 TABLET BY ity of mg tablet 00:00: MOUTH [place] EVERY DAY Medical Branch DIRECTED traMADOL 50 Yes TAKE 1 Univ ers mg tablet 3-20 TABLET BY ity o f 00:00: MOUTH [place] TWICE A Medical DAY Branch NEEDED FOR PAIN QUEtiapine Yes TAKE 1 Unive rs 100 mg 3-20 TABLET BY ity of tablet 00:00: MOUTH AT [place] BEDTIME Medical Branch hydroxychlo Yes TAKE 1 Univ ers roquine 200 3-20 TABLET BY ity of mg tablet 00:00: MOUTH [place] EVERY DAY Medical Branch DIRECTED traMADOL 50 Yes TAKE 1 Univ ers mg tablet 3-20 TABLET BY ity o f 00:00: MOUTH [place] TWICE A Medical DAY Branch NEEDED FOR PAIN QUEtiapine Yes TAKE 1 Unive rs 100 mg 3-20 TABLET BY ity of tablet 00:00: MOUTH [facility] BEDTIME Medical Branch hydroxychlo Yes TAKE 1 Univ ers roquine 200 3-20 TABLET BY ity of mg tablet 00:00: MOUTH [place] EVERY DAY Medical Branch DIRECTED traMADOL 50 Yes TAKE 1 Univ ers mg tablet 3-20 TABLET BY ity o f 00:00: MOUTH [place] TWICE A Medical DAY Branch NEEDED FOR PAIN QUEtiapine Yes TAKE 1 Unive rs 100 mg 3-20 TABLET BY ity of tablet 00:00: MOUTH [facility] BEDTIME Medical Branch hydroxychlo Yes TAKE 1 Univ ers roquine 200 3-20 TABLET BY ity of mg tablet 00:00: MOUTH [place] EVERY DAY Medical Branch DIRECTED traMADOL 50 Yes TAKE 1 Univ ers mg tablet 3-20 TABLET BY ity o f 00:00: MOUTH [place] 00 TWICE A Medical DAY Branch NEEDED FOR PAIN traMADOL 50 Yes TAKE 1 Univ ers mg tablet 3-20 TABLET BY ity o f 00:00: MOUTH [place] 00 TWICE A Medical DAY Branch NEEDED FOR PAIN QUEtiapine Yes TAKE 1 Unive rs 100 mg 3-20 TABLET BY ity of tablet 00:00: MOUTH AT [place] 00 BEDTIME Medical Branch hydroxychlo Yes TAKE 1 Univ ers roquine 200 3-20 TABLET BY ity of mg tablet 00:00: MOUTH [place] 00 EVERY DAY Medical Branch DIRECTED SERTraline Yes 100mg Take 100 Un [place] 100 mg 3-07 mg by ity of tablet 00:00: mouth 00 daily. Medical Branch SERTraline Yes 100mg Take 100 Un [place] 100 mg 3-07 mg by ity of tablet 00:00: mouth 00 daily. Medical Branch levothyroxi Yes 50ug Take 50 Uni vers ne 50 mcg 3-07 mcg by ity of tablet 00:00: mouth [place] 00 daily. Medical Branch SERTraline Yes 100mg Take 100 Un [place] 100 mg 3-07 mg by ity of tablet 00:00: mouth [place] 00 daily. Medical Branch levothyroxi Yes 50ug Take 50 Uni vers ne 50 mcg 3-07 mcg by ity of tablet 00:00: mouth 00 daily. Medical Branch SERTraline Yes 100mg Take 100 Un [place] 100 mg 3-07 mg by ity of tablet 00:00: mouth [place] 00 daily. Medical Branch levothyroxi Yes 50ug Take 50 Uni vers ne 50 mcg 3-07 mcg by ity of tablet 00:00: mouth [place] 00 daily. Medical Branch levothyroxi Yes 50ug Take 50 Uni vers ne 50 mcg 3-07 mcg by ity of tablet 00:00: mouth [place] 00 daily. Medical Branch SERTraline Yes 100mg Take 100 Un [place] 100 mg 3-07 mg by ity of tablet 00:00: mouth [place] 00 daily. Medical Branch levothyroxi Yes 50ug Take 50 Uni vers ne 50 mcg 3-07 mcg by ity of tablet 00:00: mouth [place] 00 daily. Medical Branch SERTraline 201[address] Yes 100mg Take 100 Un [place] 100 mg 3-07 mg by ity of tablet 00:00: mouth [place] 00 daily. Medical Branch levothyroxi 0 Yes 50ug Take 50 Uni vers ne 50 mcg 3-07 mcg by ity of tablet 00:00: mouth [place] 00 daily. Medical Branch SERTraline 0 Yes 100mg Take 100 Un [place] 100 mg 3-07 mg by ity of tablet 00:00: mouth [place] 00 daily. Medical Branch levothyroxi 0 Yes 50ug Take 50 Uni vers ne 50 mcg 3-07 mcg by ity of tablet 00:00: mouth [place] 00 daily. Medical Branch SERTraline 0 Yes 100mg Take 100 Un [place] 100 mg 3-07 mg by ity of tablet 00:00: mouth [place] 00 daily. Medical Branch levothyroxi 0 Yes 50ug Take 50 Uni vers ne 50 mcg 3-07 mcg by ity of tablet 00:00: mouth [place] 00 daily. Medical Branch SERTraline 0 Yes 100mg Take 100 Un [place] 100 mg 3-07 mg by ity of tablet 00:00: mouth [place] 00 daily. Medical Branch levothyroxi 0 Yes 50ug Take 50 Uni vers ne 50 mcg 3-07 mcg by ity of tablet 00:00: mouth [place] 00 daily. Medical Branch SERTraline 0 Yes 100mg Take 100 Un [place] 100 mg 3-07 mg by ity of tablet 00:00: mouth [place] 00 daily. Medical Branch levothyroxi 0 Yes 50ug Take 50 Uni vers ne 50 mcg 3-07 mcg by ity of tablet 00:00: mouth [place] 00 daily. Medical Branch SERTraline 0 Yes 100mg Take 100 Un [place] 100 mg 3-07 mg by ity of tablet 00:00: mouth [place] 00 daily. Medical Branch levothyroxi 0 Yes 50ug Take 50 Uni vers ne 50 mcg 3-07 mcg by ity of tablet 00:00: mouth [place] 00 daily. Medical Branch Immunizations Ordered Immunization Filled Immunization Date Status Commen ts Source Name Name Influenza High Dose 2017-12-05 [facility] ([id number]) Vital Signs Vital Name Observation Time Observation Value Comments Source Systolic blood 2019-07-06 18:54:00 137 mm[Hg] Univer sity [facility] [place] [facility] pressure Medical Branch Diastolic blood 2019-07-06 18:54:00 79 mm[Hg] [facility]ive [facility] [place] pressure Medical Branch Heart rate 2019-07-06 18:54:00 92 /min Universi ty [facility] Body height 2019-07-06 18:54:00 157.5 cm Universi ty [facility] Body weight 2019-07-06 18:54:00 131.543 kg Universi ty [facility] [place] [facility] Medical Branch BMI 2019-07-06 18:54:00 53.04 kg/m2 Universi ty [facility] Branch Systolic blood 2019-07-06 18:54:00 137 mm[Hg] Univer sity [facility] [place] [facility] pressure Medical Branch Diastolic blood 2019-07-06 18:54:00 79 [facility]Hg[facility] 2019-07-06 18:54:00 92 /min Universi ty [facility] Body height 2019-07-06 18:54:00 157.5 cm Universi ty [facility] [place] [facility] Medical Branch Body weight 2019-07-06 18:54:00 131.543 kg Universi ty [facility] [place] [facility] Medical Branch BMI 2019-07-06 18:54:00 53.04 kg/m2 Universi ty [facility] Height 2018-12-10 12:28:00 61 [in_us] [facility] Weight 2018-12-10 12:28:00 286 [lb_av] [facility] Body Mass Index 2018-12-10 12:28:00 54.04 kg/m2 [facility] Calculated Procedures Procedure Date / Time Performed Performing Clinician [facility] e REFERRAL- 2019-07-15 05:01:00 Doctor Unassigned, No [facility] REQUEST/RESPONSE Name Medical Branch Plan of Care Planned Activity Planned Date Details Comments Source Future Scheduled 2022-12-10 COVID-19 VACCINE (#1) [facility] Test 23:54:24 [code = COVID-19 VACCINE (#1)] Future Scheduled 2022-12-10 BREAST CANCER [facility] Test 23:54:24 SCREENING [code = BREAST CANCER SCREENING] Future Scheduled 2022-12-10 COLONOSCOPY SCREENING [facility] Test 23:54:24 [code = COLONOSCOPY SCREENING] Future Scheduled 2022-12-10 SHINGLES VACCINES (1 [facility] Test 23:54:24 of 2) [code = SHINGLES VACCINES (1 of 2)] Future Scheduled 2022-12-10 65+ [facility]OCOCCAL [facility] Test 23:54:24 VACCINE (1 - PCV) [code = 65+ PNEUMOCOCCAL VACCINE (1 - PCV)] Future Scheduled 2022-12-10 INFLUENZA VACCINE [facility] Test 23:54:24 [code = INFLUENZA VACCINE] Encounters Start End Encounter Admission Attending Care Care Encounter Source Date/Time Date/Time Type Type Clinicians Facility Department ID 2021-07-18 2021-07-18 Letter KEKE Kearns [id number] Univers 00:00:00 00:00:00 (Out) Brynn VERMA [id number] it y of [facility] [id number] Ken as [id number] [address] 2021-07-16 2021-07-16 Laboratory Only, Ang Db Test [facility] 1.2.8 [id number] Univers 15:31:38 15:41:38 Only Evelia [facility] [employer] [id number] [facility] [id number] Ken as Ke?Blea [phone] [address] Medical Office Building 2021-07-16 2021-07-16 Outpatient R [facility] [id number] [facility] 15:25:00 15:25:00 EVELIA ity [facility] 2019-07-15 2019-07-15 [facility] [id number] 00:00:00 00:00:00 (Out) [facility] [employer] [id number] Surgical [id number] Specialti [id number] [place] 2019-07-15 2019-07-15 Orders Doctor DAVIES 1.2.840.114 [id number] 00:00:00 00:00:00 Only UnassignedBAYRON 350.1.13.10 [facility] 4.2.7.2.686 [phone] [id number] 2019-07-15 2019-07-15 Orders Doctor KEKE 1.2.840.114 [id number] Univers 00:00:00 00:00:00 Only Unassigned, BAYRON 350.1.13.10 ity of Twilight [facility] 4.2.7.2.686 Ken as [phone] [address] 2019-07-15 2019-07-15 Letter [facility] 1.2.171.065 [id number] Univers 00:00:00 00:00:00 (Out) [place] 350.1.13.10 it y of Surgical 4.2.7.2.686 Ken as Specialti [phone] [facility] [address] [facility] 2019-07-14 2019-07-14 [place] [facility] 1.2.840.114 [id number] 00:00:00 00:00:00 [place] 350.1.13.10 Surgical 4.2.7.2.686 Specialti [phone] [address] 2019-07-14 2019-07-14 [place] [facility] 1.2.840.114 [id number] Univers 00:00:00 00:00:00 [place] 350.1.13.10 it y of Surgical 4.2.7.2.686 Ken as Specialti [phone] [facility] [address] [facility] 2019-07-12 2019-07-12 [place] [facility] 1.2.840.114 [id number] 00:00:00 00:00:00 [place] 350.1.13.10 [place] 4.2.7.2.686 Professio [phone] [address] 2019-07-12 2019-07-12 [place] [facility] 1.2.840.114 [id number] Univers 00:00:00 00:00:00 [place] 350.1.13.10 i [place]7.2.[place] [phone] [address] 2019-07-06 2019-07-06 [facility] 1.2.840.114 [id number] Univers 13:56:48 23:59:00 Encounter [place] 350.1.13.10 ity of Surgical 4.2.7.2.686 Ken as Specialti [phone] Co dical es [address] [place] 2019-07-06 2019-07-06 Office [facility] 1.2.402.141 [id number] 13:48:56 14:58:30 Visit [place] 350.1.13.10 Surgical 4.2.7.2.686 Specialti [phone] es [address] [place] 2019-07-06 2019-07-06 Office [facility] [id number] [facility] 13:48:56 14:58:30 Visit [place] 350.1.13.10 it y of Surgical 4.2.7.2.686 Ken as Specialti [phone] Co dical es [address] [facility] 2019-07-06 2019-07-06 Letter [facility] [id number] [facility] 00:00:00 00:00:00 (Out) [place] 350.1.13.10 it y of Surgical 4.2.7.2.686 Ken as Specialti [phone] Co dical es 198 [facility] 2018-12-10 2018-12-10 Appointmen DOMINIQUE, [facility] Orthopedics [id number] [place] 11:00:00 11:00:00 tMICHAEL GRIGSBY M.D. at [facility] dionte RODRIGUEZ M.D. Results Test Description Test Time Test Comments Results Result [facility] Comments [U] XRAY KNEE 4 2018-11-17 Images acquired, [place] [facility] [place] VWS LEFT 5 [place] [address] 11:24:[address], CHEST, WITH 2017-11-17 FINAL REPORT CONTRAST 3 PATIENT ID: 16:25:[id number] of the chest, abdomen, with contrast [...] the gallbladder. Colonic diverticulosis. Signed: Juliane Hinton MDReport Verified Date/Time: 12/08/2017 16:25:55 Reading Location: [address] Body Reading Room , ABDOMEN, 2017-11-2 Reason for FINAL REPORT WITH CONTRAST 3 exam:->history PATIENT ID: 16:25:00 of lap band, [id number] CT of the concern for chest, abdomen, displacement with contrast Clinical History: history of lap [...] the gallbladder. Colonic diverticulosis. Signed: Juliane Hinton MDReport Verified Date/Time: 12/08/2017 16:25:55 Reading Location: [facility] C013Y CT Body Reading Room C METABOLIC PANEL 2017-12-08 07:08:00 Test Item Value Reference Range Interpretation Comme nts SODIUM (BEAKER) (test code 145 meq/L 136-145 = 381) POTASSIUM (BEAKER) (test 3.8 meq/L 3.5-5.1 code = 379) CHLORIDE (BEAKER) (test 117 meq/L 98-107 H code = 382) CO2 (BEAKER) (test code = 20 meq/L 22-29 L 355) BLOOD UREA NITROGEN 8 mg/dL 7-21 (BEAKER) (test code = 354) CREATININE (BEAKER) (test 0.82 mg/dL 0.57-1.25 code = 358) GLUCOSE RANDOM (BEAKER) 72 mg/dL 70-105 (test code = 652) CALCIUM (BEAKER) (test code 8.3 mg/dL 8.4-10.2 L = 697) EGFR (BEAKER) (test code = 69 mL/min/1.73 sq m ESTIMATED GFR IS NOT 1092) ACCURATE CRE ATININE CLEARANCE IN FL EDICTING GLOMERULAR FILT RATION RATE. ESTIMATED GFR IS NOT APPLICABLE FOR DIALYSIS PATIENTS. CBC (HEMOGRAM ONLY)2017-12-08 06:40:00 Test Item Value Reference Range Interpretation Comments WHITE BLOOD CELL COUNT (BEAKER) 8.9 K/ L 3.5-10.5 (test code = 775) RED BLOOD CELL COUNT (BEAKER) 3.04 M/ L 3.93-5.22 L (test code = 761) HEMOGLOBIN (BEAKER) (test code = 8.7 GM/DL 11.2-15.7 L 410) HEMATOCRIT (BEAKER) (test code = 29.3 % 34.1-44.9 L 411) MEAN CORPUSCULAR VOLUME (BEAKER) 96.4 fL 79.4-94.8 H (test code = 753) MEAN CORPUSCULAR HEMOGLOBIN 28.6 pg 25.6-32.2 (BEAKER) (test code = 751) MEAN CORPUSCULAR HEMOGLOBIN CONC 29.7 GM/DL 32.2-35.5 L (BEAKER) (test code = 752) RED CELL DISTRIBUTION WIDTH 16.1 % 11.7-14.4 H (BEAKER) (test code = 412) PLATELET COUNT (BEAKER) (test 191 K/CU MM 150-450 code = 756) MEAN PLATELET VOLUME (BEAKER) 12.0 fL 9.4-12.3 (test code = 754) NUCLEATED RED BLOOD CELLS 0 /100 WBC 0-0 (BEAKER) (test code = 413) BASIC METABOLIC [id number] 07:18:00 Test Item Value Reference Range Interpretation Comments SODIUM (BEAKER) 144 meq/L 136-145 (test code = 381) POTASSIUM (BEAKER) 3.6 meq/L 3.5-5.1 (test code = 379) CHLORIDE (BEAKER) 119 meq/L 98-107 H (test code = 382) CO2 (BEAKER) (test 20 meq/L 22-29 L code = 355) BLOOD UREA NITROGEN 10 mg/dL 7-21 (BEAKER) (test code = 354) CREATININE (BEAKER) 0.77 mg/dL 0.57-1.25 (test code = 358) GLUCOSE RANDOM 73 mg/dL 70-105 (BEAKER) (test code = 652) CALCIUM (BEAKER) 8.1 mg/dL 8.4-10.2 L (test code = 697) EGFR (BEAKER) (test 74 mL/min/1.73 ESTIMA DENIA GFR IS code = 1092) sq m NOT ACCURATE CREATININE CLEARANCE IN PREDICTING GLOMERULAR FILTRATION RATE . ESTIMATED GFR I S NOT APPLICABLE FOR DIALYSIS PATIEN TS. CBC (HEMOGRAM ONLY)2017-12-07 06:50:00 Test Item Value Reference Range Interpretation Comments WHITE BLOOD CELL COUNT (BEAKER) 6.7 K/ L 3.5-10.5 (test code = 775) RED BLOOD CELL COUNT (BEAKER) 2.80 M/ L 3.93-5.22 L (test code = 761) HEMOGLOBIN (BEAKER) (test code = 8.2 GM/DL 11.2-15.7 L 410) HEMATOCRIT (BEAKER) (test code = 26.2 % 34.1-44.9 L 411) MEAN CORPUSCULAR VOLUME (BEAKER) 93.6 fL 79.4-94.8 (test code = 753) MEAN CORPUSCULAR HEMOGLOBIN 29.3 pg 25.6-32.2 (BEAKER) (test code = 751) MEAN CORPUSCULAR HEMOGLOBIN CONC 31.3 GM/DL 32.2-35.5 L (BEAKER) (test code = 752) RED CELL DISTRIBUTION WIDTH 15.9 % 11.7-14.4 H (BEAKER) (test code = 412) PLATELET COUNT (BEAKER) (test 192 K/CU MM 150-450 code = 756) MEAN PLATELET VOLUME (BEAKER) 10.9 fL 9.4-12.3 (test code = 754) NUCLEATED RED BLOOD CELLS 0 /100 WBC 0-0 (BEAKER) (test code = 413) URINE [id number] 13:00:00 Test Item Value Reference Range Interpretation Comments CULTURE (BEAKER) (test >100,000 col/mL skin code = 1095) caden BASIC METABOLIC [id number] 08:35:00 Test Item Value Reference Range Interpretation Comments SODIUM (BEAKER) 143 meq/L 136-145 (test code = 381) POTASSIUM (BEAKER) 3.6 meq/L 3.5-5.1 (test code = 379) CHLORIDE (BEAKER) 117 meq/L 98-107 H (test code = 382) CO2 (BEAKER) (test 21 meq/L 22-29 L code = 355) BLOOD UREA NITROGEN 13 mg/dL 7-21 (BEAKER) (test code = 354) CREATININE (BEAKER) 0.73 mg/dL 0.57-1.25 (test code = 358) GLUCOSE RANDOM 73 mg/dL 70-105 (BEAKER) (test code = 652) CALCIUM (BEAKER) 7.9 mg/dL 8.4-10.2 L (test code = 697) EGFR (BEAKER) (test 79 mL/min/1.73 ESTIMA DENIA GFR IS code = 1092) sq m NOT ACCURATE CREATININE CLEARANCE IN PREDICTING GLOMERULAR FILTRATION RATE . ESTIMATED GFR I S NOT APPLICABLE FOR DIALYSIS PATIEN TS. CBC (HEMOGRAM ONLY)2017-12-06 07:47:00 Test Item Value Reference Range Interpretation Comments WHITE BLOOD CELL COUNT (BEAKER) 6.7 K/ L 3.5-10.5 (test code = 775) RED BLOOD CELL COUNT (BEAKER) 2.78 M/ L 3.93-5.22 L (test code = 761) HEMOGLOBIN (BEAKER) (test code = 8.1 GM/DL 11.2-15.7 L 410) HEMATOCRIT (BEAKER) (test code = 25.9 % 34.1-44.9 L 411) MEAN CORPUSCULAR VOLUME (BEAKER) 93.2 fL 79.4-94.8 (test code = 753) MEAN CORPUSCULAR HEMOGLOBIN 29.1 pg 25.6-32.2 (BEAKER) (test code = 751) MEAN CORPUSCULAR HEMOGLOBIN CONC 31.3 GM/DL 32.2-35.5 L (BEAKER) (test code = 752) RED CELL DISTRIBUTION WIDTH 15.8 % 11.7-14.4 H (BEAKER) (test code = 412) PLATELET COUNT (BEAKER) (test 177 K/CU MM 150-450 code = 756) MEAN PLATELET VOLUME (BEAKER) 11.2 fL 9.4-12.3 (test code = 754) NUCLEATED RED BLOOD CELLS 0 /100 WBC 0-0 (BEAKER) (test code = 413) VITAMIN B12 AND [id number] 12:04:00 Test Item Value Reference Range Interpretation Comments VITAMIN B12 (BEAKER) (test code = > pg/mL 213-816 H 774) FOLATE (BEAKER) (test code = 362) 16.3 ng/mL >=7.0 [id number] 10:53:00 Test Item Value Reference Range Interpretation Comments FERRITIN (BEAKER) (test code = 361) 59 ng/mL 5-275 IRON, TIBC, % SAT. (WITHOUT FERRITIN)2017-12-05 10:19:00 Test Item Value Reference Range Interpretation Comments IRON (BEAKER) (test code = 547) 56 ug/dL 40-160 TOTAL IRON BINDING CAPACITY 290 ug/dL 250-450 (BEAKER) (test code = 769) IRON % SATURATION (2) (BEAKER) 19 % 20-55 L (test code = 2590) BASIC METABOLIC [id number] 07:24:00 Test Item Value Reference Range Interpretation Comments SODIUM (BEAKER) 140 meq/L 136-145 (test code = 381) POTASSIUM (BEAKER) 3.7 meq/L 3.5-5.1 (test code = 379) CHLORIDE (BEAKER) 113 meq/L 98-107 H (test code = 382) CO2 (BEAKER) (test 19 meq/L 22-29 L code = 355) BLOOD UREA NITROGEN 26 mg/dL 7-21 H (BEAKER) (test code = 354) CREATININE (BEAKER) 0.81 mg/dL 0.57-1.25 (test code = 358) GLUCOSE RANDOM 82 mg/dL 70-105 (BEAKER) (test code = 652) CALCIUM (BEAKER) 7.9 mg/dL 8.4-10.2 L (test code = 697) EGFR (BEAKER) (test 70 mL/min/1.73 ESTIMA DENIA GFR IS code = 1092) sq m NOT ACCURATE CREATININE CLEARANCE IN PREDICTING GLOMERULAR FILTRATION RATE . ESTIMATED GFR I S NOT APPLICABLE FOR DIALYSIS PATIEN TS. CBC (HEMOGRAM ONLY)2017-12-05 06:10:00 Test Item Value Reference Range Interpretation Comments WHITE BLOOD CELL COUNT (BEAKER) 9.4 K/ L 3.5-10.5 (test code = 775) RED BLOOD CELL COUNT (BEAKER) 2.51 M/ L 3.93-5.22 L (test code = 761) HEMOGLOBIN (BEAKER) (test code = 7.3 GM/DL 11.2-15.7 L 410) HEMATOCRIT (BEAKER) (test code = 23.6 % 34.1-44.9 L 411) MEAN CORPUSCULAR VOLUME (BEAKER) 94.0 fL 79.4-94.8 (test code = 753) MEAN CORPUSCULAR HEMOGLOBIN 29.1 pg 25.6-32.2 (BEAKER) (test code = 751) MEAN CORPUSCULAR HEMOGLOBIN CONC 30.9 GM/DL 32.2-35.5 L (BEAKER) (test code = 752) RED CELL DISTRIBUTION WIDTH 15.1 % 11.7-14.4 H (BEAKER) (test code = 412) PLATELET COUNT (BEAKER) (test 197 K/CU MM 150-450 code = 756) MEAN PLATELET VOLUME (BEAKER) 11.5 fL 9.4-12.3 (test code = 754) NUCLEATED RED BLOOD CELLS 0 /100 WBC 0-0 (BEAKER) (test code = 413) HEMOGLOBIN AND [id number] 23:13:00 Test Item Value Reference Range Interpretation Comments HEMOGLOBIN (BEAKER) (test code = 7.9 GM/DL 11.2-15.7 L 410) HEMATOCRIT (BEAKER) (test code = 25.8 % 34.1-44.9 L 411) [id number] 10:35:00 Test Item Value Reference Range Interpretation Comments PHOSPHORUS (BEAKER) (test code = 2.1 mg/dL 2.3-4.7 L 604) [id number] 10:35:00 Test Item Value Reference Range Interpretation Comments MAGNESIUM (BEAKER) (test code = 1.9 mg/dL 1.6-2.6 627) BASIC METABOLIC [id number] 10:35:00 Test Item Value Reference Range Interpretation Comments SODIUM (BEAKER) 142 meq/L 136-145 (test code = 381) POTASSIUM (BEAKER) 3.8 meq/L 3.5-5.1 (test code = 379) CHLORIDE (BEAKER) 113 meq/L 98-107 H (test code = 382) CO2 (BEAKER) (test 21 meq/L 22-29 L code = 355) BLOOD UREA NITROGEN 38 mg/dL 7-21 H (BEAKER) (test code = 354) CREATININE (BEAKER) 0.82 mg/dL 0.57-1.25 (test code = 358) GLUCOSE RANDOM 83 mg/dL 70-105 (BEAKER) (test code = 652) CALCIUM (BEAKER) 8.3 mg/dL 8.4-10.2 L (test code = 697) EGFR (BEAKER) (test 69 mL/min/1.73 ESTIMA DENIA GFR IS code = 1092) sq m NOT ACCURATE CREATININE CLEARANCE IN PREDICTING GLOMERULAR FILTRATION RATE . ESTIMATED GFR I S NOT APPLICABLE FOR DIALYSIS PATIEN TS. CBC (HEMOGRAM ONLY)2017-12-04 10:17:00 Test Item Value Reference Range Interpretation Comments WHITE BLOOD CELL COUNT (BEAKER) 9.7 K/ L 3.5-10.5 (test code = 775) RED BLOOD CELL COUNT (BEAKER) 2.95 M/ L 3.93-5.22 L (test code = 761) HEMOGLOBIN (BEAKER) (test code = 8.5 GM/DL 11.2-15.7 L 410) HEMATOCRIT (BEAKER) (test code = 27.6 % 34.1-44.9 L 411) MEAN CORPUSCULAR VOLUME (BEAKER) 93.6 fL 79.4-94.8 (test code = 753) MEAN CORPUSCULAR HEMOGLOBIN 28.8 pg 25.6-32.2 (BEAKER) (test code = 751) MEAN CORPUSCULAR HEMOGLOBIN CONC 30.8 GM/DL 32.2-35.5 L (BEAKER) (test code = 752) RED CELL DISTRIBUTION WIDTH 15.0 % 11.7-14.4 H (BEAKER) (test code = 412) PLATELET COUNT (BEAKER) (test 240 K/CU MM 150-450 code = 756) MEAN PLATELET VOLUME (BEAKER) 11.2 fL 9.4-12.3 (test code = 754) NUCLEATED RED BLOOD CELLS 0 /100 WBC 0-0 (BEAKER) (test code = 413) URINALYSIS W/ [id number] 08:24:00 Test Item Value Reference Range Interpretation Comments COLOR (BEAKER) (test code Light Yellow = 470) CLARITY (BEAKER) (test Clear code = 469) SPECIFIC GRAVITY UA 1.025 1.001-1.035 (BEAKER) (test code = 468) PH UA (BEAKER) (test code 5.0 5.0-8.0 = 467) PROTEIN UA (BEAKER) (test Negative Negative code = 464) GLUCOSE UA (BEAKER) (test Negative Negative code = 365) KETONES UA (BEAKER) (test Negative Negative code = 371) BILIRUBIN UA (BEAKER) Negative Negative (test code = 462) BLOOD UA (BEAKER) (test Small Negative A code = 461) NITRITE UA (BEAKER) (test Positive Negative A code = 465) LEUKOCYTE ESTERASE UA Moderate Negative A (BEAKER) (test code = 466) UROBILINOGEN UA (BEAKER) 0.2 mg/dL 0.2-1.0 (test code = 463) RBC UA (BEAKER) (test code 1 /HPF = 519) WBC UA (BEAKER) (test code 5 /HPF = 520) BACTERIA (BEAKER) (test Many code = 517) MUCUS (BEAKER) (test code Many = 1574) SOURCE(BEAKER) (test code Urine, Clean Catch = 2795) BASIC METABOLIC [id number] 03:41:00 Test Item Value Reference Range Interpretation Comments SODIUM (BEAKER) 140 meq/L 136-145 (test code = 381) POTASSIUM (BEAKER) 4.2 meq/L 3.5-5.1 Specimen slightly (test code = 379) hemolyzed CHLORIDE (BEAKER) 109 meq/L 98-107 H (test code = 382) CO2 (BEAKER) (test 21 meq/L 22-29 L code = 355) BLOOD UREA NITROGEN 47 mg/dL 7-21 H (BEAKER) (test code = 354) CREATININE (BEAKER) 0.84 mg/dL 0.57-1.25 Specimen slightly (test code = 358) hemolyzed GLUCOSE RANDOM 90 mg/dL 70-105 (BEAKER) (test code = 652) CALCIUM (BEAKER) 8.5 mg/dL 8.4-10.2 (test code = 697) EGFR (BEAKER) (test 67 mL/min/1.73 ESTIMA DENIA GFR IS code = 1092) sq m NOT ACCURATE CREATININE CLEARANCE IN PREDICTING GLOMERULAR FILTRATION RATE . ESTIMATED GFR I S NOT APPLICABLE FOR DIALYSIS PATIEN TS. HEPATIC FUNCTION [id number] 03:41:00 Test Item Value Reference Range Interpretation Comments TOTAL PROTEIN (BEAKER) 6.4 gm/dL 6.0-8.3 Speci men slightly (test code = 770) hemolyzed ALBUMIN (BEAKER) (test 3.4 g/dL 3.5-5.0 L Speci men slightly code = 1145) hemolyzed BILIRUBIN TOTAL 0.4 mg/dL 0.2-1.2 Specimen sli ghtly (BEAKER) (test code = hemoly zed 377) BILIRUBIN DIRECT 0.1 mg/dL 0.1-0.5 Specimen sl ightly (BEAKER) (test code = hemoly zed 706) ALKALINE PHOSPHATASE 98 U/L 40-150 (BEAKER) (test code = 346) AST (SGOT) (BEAKER) 19 U/L 5-34 Specimen slightly (test code = 353) hemolyzed ALT (SGPT) (BEAKER) 17 U/L 6-55 Specimen slightly (test code = 347) hemolyzed PROTHROMBIN [id number] 02:41:00 Test Item Value Reference Range Interpretation Comments PROTIME (BEAKER) (test code = 15.2 seconds 11.7-14.7 H 759) INR (BEAKER) (test code = 370) 1.2 <=5.9 RECOMMENDED COUMADIN/WARFARIN INR THERAPY RANGESSTANDARD DOSE: 2.0 - 3.0 Includes: PROPHYLAXIS for venous thrombosis, systemic embolization; TREATMENT for venous thrombosis and/or pulmonary embolus.HIGH RISK: Target INR is 2.5-3.5 for patients with mechanical heart valves.CBC W/PLT COUNT & AUTO [id number] 02:38:00 Test Item Value Reference Range Interpretation Comments WHITE BLOOD CELL COUNT (BEAKER) 14.7 K/ L 3.5-10.5 H (test code = 775) RED BLOOD CELL COUNT (BEAKER) 3.24 M/ L 3.93-5.22 L (test code = 761) HEMOGLOBIN (BEAKER) (test code = 9.3 GM/DL 11.2-15.7 L 410) HEMATOCRIT (BEAKER) (test code = 30.1 % 34.1-44.9 L 411) MEAN CORPUSCULAR VOLUME (BEAKER) 92.9 fL 79.4-94.8 (test code = 753) MEAN CORPUSCULAR HEMOGLOBIN 28.7 pg 25.6-32.2 (BEAKER) (test code = 751) MEAN CORPUSCULAR HEMOGLOBIN CONC 30.9 GM/DL 32.2-35.5 L (BEAKER) (test code = 752) RED CELL DISTRIBUTION WIDTH 15.0 % 11.7-14.4 H (BEAKER) (test code = 412) PLATELET COUNT (BEAKER) (test 268 K/CU MM 150-450 code = 756) MEAN PLATELET VOLUME (BEAKER) 12.0 fL 9.4-12.3 (test code = 754) NUCLEATED RED BLOOD CELLS 0 /100 WBC 0-0 (BEAKER) (test code = 413) NEUTROPHILS RELATIVE PERCENT 63 % (BEAKER) (test code = 429) LYMPHOCYTES RELATIVE PERCENT 27 % (BEAKER) (test code = 430) MONOCYTES RELATIVE PERCENT 8 % (BEAKER) (test code = 431) EOSINOPHILS RELATIVE PERCENT 1 % (BEAKER) (test code = 432) BASOPHILS RELATIVE PERCENT 1 % (BEAKER) (test code = 437) NEUTROPHILS ABSOLUTE COUNT 9.28 K/ L 1.56-6.13 H (BEAKER) (test code = 670) LYMPHOCYTES ABSOLUTE COUNT 4.03 K/ L 1.18-3.74 H (BEAKER) (test code = 414) MONOCYTES ABSOLUTE COUNT (BEAKER) 1.11 K/ L 0.24-0.36 H (test code = 415) EOSINOPHILS ABSOLUTE COUNT 0.15 K/ L 0.04-0.36 (BEAKER) (test code = 416) BASOPHILS ABSOLUTE COUNT (BEAKER) 0.08 K/ L 0.01-0.08 (test code = 417) IMMATURE GRANULOCYTES-RELATIVE 0 % 0-1 PERCENT (BEAKER) (test code = 3798)
[2022-12-11] MEDS ORDERED: ONDANSETRON 4 MG/2 ML VIAL ONE (00:14)
[2022-12-11] MEDS ORDERED: NA CHLORIDE 0.9% 1,000 ML ONE ×3 (00:14→09:20)
[2022-12-11] MEDS ORDERED: MORPHINE 4 MG/ML SYR ONE (00:14)
[2022-12-11 00:25] LABS: Absolute Lymphocytes (CBC) 0.5 K/uL (0.7-4.9); Hematocrit 41.8 % (36.0-45.0); Lymphocytes % 4.1 % (15.3-44.8); MCV 89.6 fL (80-100); MPV 9.8 fL (7.6-11.3); RBC Red Blood Cell Count 4.66 M/uL (3.86-4.86)
[2022-12-11 00:38] LABS: Bilirubin Total 1.6 mg/dL (0.2-1.0); Potassium 3.7 mmol/L (3.5-5.1); Protein, Total 8.1 g/dL (6.4-8.2); Troponin High Sensitivity 7.1 pg/mL (<58.9)
[2022-12-11] MEDS ORDERED: CEFTRIAXONE 1000 MG/VIAL ONE (01:25)
[2022-12-11] MEDS ORDERED: METRONIDAZOLE 500mg IVPB 500 MG/100 ML BAG IV ONE (01:25)
[2022-12-11 01:42] LABS: Protime INR 1.05
[2022-12-11 01:58] LABS: Blood Morphology Comment NOT SEEN (NOT SEEN); Platelet Estimate ADEQ
[2022-12-11 03:40] LABS: SARS-CoV-2 Antigen Rapid Res Negative (Negative)
[2022-12-11] MEDS ORDERED: NA CHLORIDE 0.9% 500 ML ONE (05:40)
[2022-12-11] MEDS ORDERED: NOREPINEPHRINE BITARTRATE/D5W 0 MG/0 ML BAG IV ONE (05:50)
--- NOTE | 2022-12-11 06:50 | ER ---
Nurse's Notes [facility] Name: Ping Flores Age: 72 yrs Sex: Female : 1950 Arrival Date: 12/10/2022 Time: 23:54 Bed 6 Private MD: Diagnosis: Biliary acute pancreatitis;Other specified sepsis Presentation: 12/10 23:55 Chief complaint: EMS states: "pt has pain in the RUQ that radiates to her right side of mb9 back that started around 1800 today. Pt had cataract surgery on her right eye this morning." EMS gave 4 mg of Zofran. Pt actively vomiting. Coronavirus screen: Vaccine status: Patient reports receiving the 2nd dose of the covid vaccine. Ebola Screen: No symptoms or risks identified at this time. Initial Sepsis Screen: Does the patient meet any 2 criteria? No. Patient's initial sepsis screen is negative. Does the patient have a suspected source of infection? No. Patient's initial sepsis screen is negative. Risk Assessment: Do you want to hurt yourself or someone else? Patient reports no desire to harm self or others. Onset of symptoms was December 10, 2022. 23:55 Method Of Arrival: EMS: [facility] mb9 23:55 Acuity: DEBBIE 3 mb9 Historical: - Allergies: 23:59 No Known Allergies; mb9 - PMHx: 23:59 Renal Disease; Lupus erythematosus; Hypothyroidism; Kidney cancer; mb9 12/11 00:17 Bleeding Ulcers; mb9 - PSHx: 12/10 23:59 cataract; mb9 - Immunization history:: Adult Immunizations up to date. - Social history:: Smoking status: Patient denies any tobacco usage or history of. Screenin/26 05:57 [facility] ED Fall Risk Assessment (Adult) History of falling in the last 3 months, ll3 including since admission No falls in past 3 months (0 pts) Score/Fall Risk Level 0 - 2 = Low Risk Oriented to surroundings, Maintained a safe environment, Educated pt \\T\\ family on fall prevention, incl call for assistance when getting out of bed. Abuse screen: Denies threats or abuse. Denies injuries from another. Nutritional screening: No deficits noted. Tuberculosis screening: No symptoms or risk factors identified. Assessment: 00:02 General: Appears uncomfortable, Behavior is anxious. Pain: Complains of pain in RUQ mb9 Pain radiates to right side of back Pain currently is 10 out of 10 on a pain scale. Quality of pain is described as sharp, stabbing, Pain began suddenly, Is intermittent, Aggravated by increased activity, repositioning, Noted to be grimacing, moaning. Neuro: Level of Consciousness is awake, alert, obeys commands, Oriented to person, place, time, situation, Appropriate for age. Cardiovascular: Capillary refill < 3 seconds is brisk Patient's skin is warm and dry. Rhythm is regular. Respiratory: Airway is patent Respiratory effort is even, unlabored, Respiratory pattern is tachypnea. GI: Abdomen is round non-distended, Pt is actively vomiting clear fluid, Abd is soft Abdomen is tender to palpation in right upper quadrant. : No signs and/or symptoms were reported regarding the genitourinary system. EENT: No signs and/or symptoms were reported regarding the EENT system. Derm: Skin is intact, Skin is dry, Skin is pale, Skin temperature is cool. 03:26 Reassessment: No changes from previously documented assessment. Patient and/or family ll3 updated on plan of care and expected duration. Pain level reassessed. Patient is alert, oriented x 3, equal unlabored respirations, skin warm/dry/pink. 05:57 Reassessment: Patient and/or family updated on plan of care and expected duration. Pain ll3 level reassessed. Patient is alert, oriented x 3, equal unlabored respirations, skin warm/dry/pink. Patient states feeling better. Patient states symptoms have improved. Vital Signs: 12/10 23:55 BP 144 / 94; Pulse 88; Resp 22; Temp 98.3; Pulse Ox 96% on R/A; Weight 127.01 kg; mb9 Height 5 ft. 2 in. (157.48 cm); Pain 08/25; 12/11 00:17 BP 111 / 100; Pulse 90; Resp 24; Pulse Ox 99% on R/A; mb9 01:11 BP 158 / 98; Pulse 104; Resp 27; Temp 98.8(O); Pulse Ox 95% on R/A; kl 02:15 BP 157 / 58; Pulse 100; Resp 29; Pulse Ox 92% on R/A; ll3 03:26 BP 123 / 49; Pulse 118; Resp 25; Temp 98.7(O); Pulse Ox 92% on R/A; ll3 04:30 BP 120 / 45; Pulse 90; Resp 22; Pulse Ox 94% on 2 lpm NC; ll3 05:55 BP 138 / 62 (man/); Pulse 84; Resp 16; Pulse Ox 96% on 2 lpm NC; ll3 12/10 23:55 Body Mass Index 51.21 (127.01 kg, 157.48 cm) mb9 ED Course: 12/10 23:54 Patient arrived in ED. mw2 23:58 Franklin Hart MD is Attending Physician. bs3 23:59 Triage completed. mb9 23:59 Arm band placed on. mb9 12/11 00:01 Placed in gown. Bed in low position. Call light in reach. Side rails up X 1. Client mb9 placed on continuous cardiac and pulse oximetry monitoring. NIBP monitoring applied. dropper tank storage on. 00:02 Maintain EMS IV. Dressing intact. Good blood return noted. Site clean \\T\\ dry. Gauge \\T\\ mb 9 site: 20 gauge to right AC. 00:17 CBC with Diff Sent. mb9 00:17 Lipase Sent. mb9 00:17 Comprehensive Metabolic Panel Sent. mb9 00:17 Troponin High Sensitivity Sent. mb9 00:48 US Abdomen Complete In Process Unspecified. EDMS 00:52 XRAY Chest (1 view) In Process Unspecified. EDMS 03:10 Thorax Wo Con In Process Unspecified. EDMS 03:10 Abdomen In Process Unspecified. EDMS 04:06 Braulio Martinez RN is Primary Nurse. ll3 06:49 Satnam Mcpherson MD is Hospitalizing Provider. bs3 07:27 Primary Nurse role handed off by Braulio Martinez RN kj1 07:30 No provider procedures requiring assistance completed. Patient admitted, IV remains in kc6 place. 07:32 Report received from RONAK Heranndez \\T\\ RONAK Felipe. kc6 Administered Medications: 00:04 Drug: NS 0.9% 1000 ml Route: IV; Rate: 1 bolus; Site: right antecubital; mb9 00:05 Drug: Ondansetron 4 mg Route: IVP; Site: right antecubital; mb9 00:10 Drug: morphine 4 mg Route: IVP; Infused Over: 4 mins; Site: right antecubital; mb9 01:30 Drug: Rocephin (cefTRIAXone) 1 grams Route: IV; Rate: bolus; Site: right antecubital; ll3 03:26 Follow up: Response: No adverse reaction; IV Status: Completed infusion; IV Intake: 29hkll6 01:34 Drug: Flagyl (metroNIDAZOLE) 500 mg Volume: 100 ml; Route: IVPB; Rate: 200 ml/hr; ll3 Infused Over: 30 mins; Site: right antecubital; 03:26 Follow up: Response: No adverse reaction; IV Status: Completed infusion; IV Intake: ll3 100ml 03:45 Drug: NS 0.9% 1000 ml Route: IV; Rate: 1 bolus; Site: right antecubital; ll3 05:42 Drug: NS 0.9% 500 ml Route: IV; Rate: 500 bolus; Site: right antecubital; ll3 05:55 CANCELLED (Physician Discretion): Norepinephrine 0.1 mcg/kg/min IV at 5 mcg/min Per bs3 protocol; (Standard concentration 4 mg / 250 mL D5W); Recommended max rate 3 mcg/kg/min; Titrate 0.05 mcg/kg/min as often as every 5 minutes to achieve goal (see titration policy); Goal parameter MAP greater than 65 mmHg. Medication: 05:57 VIS not applicable for this client. ll3 Intake: 03:26 IV: 10ml; Total: 10ml. ll3 03:26 IV: 100ml; Total: 110ml. ll3 Outcome: 06:49 Decision to Hospitalize by Provider. bs3 07:31 Admitted to ER Hold. Please see [facility] for further documentation. kc6 07:31 Condition: stable 07:31 Instructed on the need for admit. 15:08 Patient left the ED. kc6 Signatures: Dispatcher [employer] EDMarylou Johnston RN RN kl Gatti, MyKena mw2 Radha Freeman kj1 Braulio Martinez RN RN ll3 Ally Bonds RN RN kc6 Franklin Hart MD MD bs3 Mary Lou Cornell RN RN mb9 Corrections: (The following items were deleted from the chart) 00:16 00:02 Derm: Skin is pink, warm \\T\\ dry. mb9 mb9 03:23 03:08 SARS-COV-2 RT PCR+MOL.LAB.BRConstantino drawn and sent. mary ellen JOYCE
--- NOTE | 2022-12-11 06:50 | EDPHYS ---
Physician Documentation [facility] Name: Ping Flores Age: 72 yrs Sex: Female : 1950 Arrival Date: 12/10/2022 Time: 23:54 Bed 6 Private MD: ED Physician Franklin Hart HPI: 12/11 02:17 This 72 yrs old Female presents to ER via EMS with complaints of abdominal bs3 pain. 02:17 72-year-old female history of renal disease, lupus, history of gastric surgery status bs3 post eye surgery today presents with abdominal pain and back pain. It started suddenly today her pain is located in her epigastric and right upper abdomen and radiates toward her back she has never had this pain before she has associated nausea and vomiting she has not taken anything for the pain it is moderate in intensity she denies any chest pain but notes that the pain takes away her breath no fevers or chills no urinary complaints. 02:25 pain started yesterday afternoon around 3pm. It is sharp, not ripping or tearing. . bs3 Historical: - Allergies: 12/10 23:59 No Known Allergies; mb9 - PMHx: 23:59 Renal Disease; Lupus erythematosus; Hypothyroidism; Kidney cancer; mb9 12/11 00:17 Bleeding Ulcers; mb9 - PSHx: 12/10 23:59 cataract; mb9 - Immunization history:: Adult Immunizations up to date. - Social history:: Smoking status: Patient denies any tobacco usage or history of. ROS: 12/11 02:25 Constitutional: Negative for fever, chills Eyes: Negative for injury, pain, redness, bs3 and discharge, Neck: Negative for injury, pain, and swelling, Cardiovascular: Negative for chest pain, palpitations, and edema, Respiratory: Negative for shortness of breath, cough, wheezing : Negative for injury, bleeding, discharge, and swelling, MS/Extremity: Negative for injury and deformity, Neuro: Negative for headache, weakness, numbness, tingling, and seizure, Psych: Negative for depression, anxiety, suicide ideation, homicidal ideation, and hallucinations. Exam: 02:25 Constitutional: pt appears in moderate distress Head/Face: Normocephalic, atraumatic. bs3 Eyes: Pupils equal round and reactive to light, extra-ocular motions intact. Lids and lashes normal. ENT: mmm, no posterior phyarngeal erythema Neck: Trachea midline, no thyromegaly, no neck stiffness Chest/axilla: Normal chest wall appearance and motion. Nontender with no deformity. No lesions are appreciated. Cardiovascular: Regular rate and rhythm with a normal S1 and S2. symmetric pulses in upper extremities Respiratory: Lungs have equal breath sounds bilaterally, clear to auscultation, no respiratory distress Abdomen/GI: tender in epigastric region and RUQ Back: No spinal tenderness. No costovertebral tenderness. Full range of motion. Skin: Warm, dry with normal turgor. Normal color with no rashes, no lesions, and no evidence of cellulitis. MS/ Extremity: Pulses equal, no cyanosis. Neurovascular intact. Full, normal range of motion. Neuro: Awake and alert, GCS 15, oriented to person, place, time, and situation. Cranial nerves II-XII grossly intact. Motor strength 5/5 in all extremities. Sensory grossly intact. Vital Signs: 12/10 23:55 BP 144 / 94; Pulse 88; Resp 22; Temp 98.3; Pulse Ox 96% on R/A; Weight 127.01 kg; mb9 Height 5 ft. 2 in. (157.48 cm); Pain 10/10; 12/11 00:17 BP 111 / 100; Pulse 90; Resp 24; Pulse Ox 99% on R/A; mb9 01:11 BP 158 / 98; Pulse 104; Resp 27; Temp 98.8(O); Pulse Ox 95% on R/A; kl 02:15 BP 157 / 58; Pulse 100; Resp 29; Pulse Ox 92% on R/A; ll3 03:26 BP 123 / 49; Pulse 118; Resp 25; Temp 98.7(O); Pulse Ox 92% on R/A; ll3 04:30 BP 120 / 45; Pulse 90; Resp 22; Pulse Ox 94% on 2 lpm NC; ll3 05:55 BP 138 / 62 (man/); Pulse 84; Resp 16; Pulse Ox 96% on 2 lpm NC; ll3 12/10 23:55 Body Mass Index 51.21 (127.01 kg, 157.48 cm) 9 MDM: 12/10 23:58 Patient medically screened. bs3 12/11 02:28 Differential diagnosis: cholecystitis, Cholelithiasis, diverticulitis, gastritis, bs3 gastroesophageal reflux disease, Mesenteric ischemia or infarction, myocardia ischemia or infarction, Pyelonephritis, urinary tract infection. 02:29 Consideration of Admission/Observation. I considered the following discharge bs3 prescriptions or medication management in the emergency department Medications were administered in the Emergency Department. See MAR. Independent interpretation of the following test(s) in the Emergency Department EKG: See my EKG interpretation above X-Ray: My interpretation is no pneumothorax as read by myself. Radiology Department Ultrasound: My interpretation is no gallstones as read by myself. Rhythm Strip Interpretation Rate: 95BPM Rhythm: regular. Response to treatment: the patient's symptoms have markedly improved after treatment. ED course: Patient with epigastric back pain and right upper quadrant pain after eating my initial Koenen concern was for gallstone pancreatitis, pancreatitis, gastritis peptic ulcer disease she is in moderate distress and I therefore gave her morphine she was noted to be tachycardic we checked her labs and then evaluated her for sepsis given my concern for an infection her lactate was greater than 2 but less than 4 and she did not have hypotension she was given IV fluid and IV antibiotics her initial work-up was nondiagnostic her x-ray is being read as possible pneumonia but it is not clear that this is the etiology of her symptoms her labs are notable for slightly elevated LFTs she could have passed a CBD stone but her CBD is normal we will do CT chest to better evaluate her lungs and CT abdomen pelvis I considered aortic dissection but she is now pain-free she also has no risk factors for pulmonary embolism not hypoxic tachypneic or complaining of shortness of breath her EKG was initially sinus tachycardia [address] elevations or depressions QTC 473. 03:46 ED course: ct concering for gallstone pancreatitis. ED course: attempted to call GI, no bs3 response, awaiting callback, pt of Dr. Mcpherson, will discuss with Dr. Mcpherson in the am. 05:34 Post IV fluid administration reassessment for Sepsis: Client prescribed 30 mL/kg IVF. bs3 Current patient vital signs reviewed: Yes. Neuro: Patient's neurological exam has improved from previous exam. ED course: pt developed hypotension systolic <65, therefore pt with septic shock, pt did receive 30cc/kg based on ideal body weight. A sepsis reassesment was performed. . 05:55 ED course: pt felt warm with excellent palpable radial pulse, after norepi was ordered, bs3 we did a manual bp and it was normal, therefore will not do pressors.. 05:58 Data reviewed: vital signs, nurses notes, lab test result(s), CBC, white blood cell bs3 count, electrolytes, hepatic panel, lfts slightly elevated, pt with bandemia, elevated lactate, ct concerning for mild pancreatitis, dilated gallbladder and possible dilated cbd . 06:07 ED course: Dr. Thompson called, no response, unable to leave voicemail. bs3 06:10 ED course: Dr. Odom called at approx 0300 no response, repaged at 0610 no response. bs3 06:50 ED course: care discussed with hospitalist Dr. Mcpherson who agrees with plan, requestes bs3 admission to his services, GI Dr. Odom for consult. Orders placed. 12/11 00:01 Order name: CBC with Diff; Complete Time: 02:15 3 12/11 00:01 Order name: Comprehensive Metabolic Panel; Complete Time: 01:09 3 12/11 00:01 Order name: Lipase; Complete Time: 01:09 bs3 12/11 00:01 Order name: Troponin High Sensitivity; Complete Time: 01:09 3 12/11 00:38 Order name: Manual Differential; Complete Time: 02:15 EDMS 12/11 01:10 Order name: Blood Culture Adult (2) bs3 12/11 01:10 Order name: Lactate w/ 2H reflex if indic.; Complete Time: 02:15 3 12/11 01:10 Order name: Protime (+inr); Complete Time: 02:15 3 12/11 01:10 Order name: Ptt, Activated; Complete Time: 02:15 bs3 12/11 02:23 Order name: UA MICROSCOPIC bs3 12/11 03:23 Order name: SARS-COV-2 Antigen Rapid; Complete Time: 05:58 EDMS 12/11 04:23 Order name: Lactate Sepsis 2 HR Follow-up; Complete Time: 05:58 EDMS 12/11 11:18 Order name: Glucose, Ancillary Testing EDMS 12/11 00:01 Order name: US Abdomen Complete bs3 12/11 00:01 Order name: EKG; Complete Time: 00:03 bs3 12/11 00:01 Order name: XRAY Chest (1 view) bs3 12/11 02:25 Order name: CT Chest Wo Con bs3 12/11 02:25 Order name: CT Abd/Pelvis - IV Contrast Only bs3 12/11 02:29 Order name: Thorax Wo Con EDMS 12/11 02:31 Order name: Abdomen EDMS 12/11 13:09 Order name: Urinalysis EDMS 12/11 00:17 Order name: EKG - Nurse/Tech; Complete Time: 01:10 9 12/11 01:10 Order name: Accucheck; Complete Time: 01: bs3 12/11 01:10 Order name: Cardiac monitoring; Complete Time: : bs3 12/11 01:10 Order name: EKG - Nurse/Tech; Complete Time: :12/11 01:10 Order name: IV Saline Lock - Large Bore; Complete Time: : bs12/11 01:10 Order name: Labs collected and sent; Complete Time: bs3 12/11 01:10 Order name: O2 Per Protocol; Complete Time: :12/11 01:10 Order name: O2 Sat Monitoring; Complete Time: : bs12/11 01:10 Order name: Vital Signs; Complete Time: :11 bs3 Administered Medications: 00:04 Drug: NS 0.9% 1000 ml Route: IV; Rate: 1 bolus; Site: right antecubital; mb9 00:05 Drug: Ondansetron 4 mg Route: IVP; Site: right antecubital; mb9 00:10 Drug: morphine 4 mg Route: IVP; Infused Over: 4 mins; Site: right antecubital; mb9 01:30 Drug: Rocephin (cefTRIAXone) 1 grams Route: IV; Rate: bolus; Site: right antecubital; ll3 03:26 Follow up: Response: No adverse reaction; IV Status: Completed infusion; IV Intake: [id number] 01:34 Drug: Flagyl (metroNIDAZOLE) 500 mg Volume: 100 ml; Route: IVPB; Rate: 200 ml/hr; ll3 Infused Over: 30 mins; Site: right antecubital; 03:26 Follow up: Response: No adverse reaction; IV Status: Completed infusion; IV Intake: ll3 100ml 03:45 Drug: NS 0.9% 1000 ml Route: IV; Rate: 1 bolus; Site: right antecubital; ll3 05:42 Drug: NS 0.9% 500 ml Route: IV; Rate: 500 bolus; Site: right antecubital; ll3 05:55 CANCELLED (Physician Discretion): Norepinephrine 0.1 mcg/kg/min IV at 5 mcg/min Per bs3 protocol; (Standard concentration 4 mg / 250 mL D5W); Recommended max rate 3 mcg/kg/min; Titrate 0.05 mcg/kg/min as often as every 5 minutes to achieve goal (see titration policy); Goal parameter MAP greater than 65 mmHg. Disposition Summary: 12/11/22 06:49 Hospitalization Ordered Hospitalization Status: Inpatient Admission bs3 Provider: Satnam Mcpherson bs3 Condition: Stable bs3 Problem: new bs3 Symptoms: are unchanged bs3 Bed/Room Type: Standard bs3 Location: Intensive Care Unit(12/11/22 14:21) kj1 Room Assignment: -(12/11/22 14:45) [facility] Diagnosis - Biliary acute pancreatitis bs3 - Other specified sepsis bs3 Forms: - Medication Reconciliation Form bs3 - SBAR form bs3 Critical care time excluding procedures: 06:48 Critical care time: Bedside Care: 35 minutes, Consultation: 10 minutes, review of bs3 results, and radiology: 10 minutes. Total time: 55 minutes Signatures: Dispatcher [employer] [facility] Radha Freeman kj1 Braulio Martinez RN RN ll3 Franklin Hart MD MD bs3 Mary Lou Cornell RN RN mb9 Corrections: (The following items were deleted from the chart) 03:23 02:36 SARS-COV-2 RT PCR+MOL.LAB.BRZ ordered. [facility] EDMS 05:55 05:44 Norepinephrine 0.1 mcg/kg/min IV at 5 mcg/min Per protocol; (Standard bs3 concentration 4 mg / 250 mL D5W); Recommended max rate 3 mcg/kg/min; Titrate 0.05 mcg/kg/min as often as every 5 minutes to achieve goal (see titration policy); Goal parameter MAP greater than 65 mmHg. ordered. bs3 05:55 05:55 Norepinephrine 0.1 mcg/kg/min IV at 5 mcg/min Per protocol; (Standard bs3 concentration 4 mg / 250 mL D5W); Recommended max rate 3 mcg/kg/min; Titrate 0.05 mcg/kg/min as often as every 5 minutes to achieve goal (see titration policy); Goal parameter MAP greater than 65 mmHg. ordered. bs3 12:43 06:49 Telemetry/MedSurg (Inpatient) bs3 kj1 12:43 06:49 bs3 kj1 12:44 12:43 kj1 kj1 14:21 12:43 [facility] ER HOLD kj1 kj1 14:21 12:44 ERHOLD- kj1 kj1 14:45 14:21 3- kj1 kj1
[2022-12-11] MEDS ORDERED: NA CHLORIDE 0.9% 1,000 ML IV SCH (07:54)
[2022-12-11 13:09] LABS: Specific Gravity 1.029 (1.005-1.030); Urine Bilirubin NEGATIVE (Negative); Urine Blood Negative (Negative); Urine Clarity Clear (Clear); Urine Color Yellow (Yellow); Urine Glucose NEGATIVE (Negative); Urine Protein 1+ (Negative); Urine Urobilinogen Normal (Normal)
--- NOTE | 2022-12-11 13:42 | RAD REPORT ---
EXAM DESCRIPTION: XR Chest, 1 View CLINICAL HISTORY: CHEST PAIN TECHNIQUE: Frontal view of the chest. COMPARISON: No relevant prior studies available. FINDINGS: Lungs: Mild central pulmonary vascular and interstitial prominence and patchy bilateral perihilar opacities. Pleural space: Unremarkable. No pneumothorax. Heart: The cardiac silhouette is enlarged. Mediastinum: Unremarkable. Bones/joints: Unremarkable. IMPRESSION: Constellation of findings which may be related to pulmonary congestion. Superimposed i nfection not excluded. Electronically signed by: Swapnil Small MD 12/11/2022 1:00 AM CONSULTING TECHNICAL DIRECTOR Due to temporary technical issues with the PACS/Fluency reporting system, reports are being signed by the in house radiologists without review as a courtesy to insure prompt reporting. The interpreting radiologist is fully responsible for the content of the report.
--- NOTE | 2022-12-11 13:51 | RAD REPORT ---
EXAM DESCRIPTION: Abdomen Exam Complete CLINICAL HISTORY: 72 years Female ABDOMINAL DISTENTION COMPARISON: None TECHNIQUE: Real-time sonography of the abdomen was performed. FINDINGS: Gallbladder is visualized with no evidence for gallstones. Gallbladder wall measured 3 mm. Common bile duct measured 4 mm. Liver is enlarged measuring 17.7 cm in longitudinal dimension. No focal hepatic abnormality. No intra hepatic biliary dilatation. Heterogeneous echogenicity involving the hepatic parenchyma. No abnormality involving the abdominal aorta or inferior vena cava. Unremarkable pancreas. Right kidney is normal in size and echogenicity measuring 8.4 x 4.8 x 5 cm. No hydronephrosis seen. L eft kidney not well visualized related to patient body habitus. No abnormal fluid collections seen. IMPRESSION: No evidence for gallstones. Enlarged liver with associated fatty change. No hydronephros is right kidney. Left kidney not well visualized. Electronically signed by: Mckenna Huggins MD 12/11/2022 1:01 AM PHYSIOLOGY TEACHER Due to temporary technical issues with the PACS/Fluency reporting system, reports are being signed by the in house radiologists without review as a courtesy to insure prompt reporting. The interpreting radiologist is fully responsible for the content of the report.
--- NOTE | 2022-12-11 13:55 | RAD REPORT ---
EXAM DESCRIPTION: CT Abdomen and Pelvis With Intravenous Contrast CLINICAL HISTORY: The patient is 72 years old and is Female; Epigastric pain TECHNIQUE: Axial computed tomography images of the abdomen and pelvis with intravenous contrast. S agittal and coronal reformatted images were created and reviewed. This CT exam was performed using one or more of the following dose reduction techniques: automated exposure control, adjustment of t he mA and/or kV according to patient size, and/or use of iterative reconstruction technique. COMPARISON: No relevant prior studies available. FINDINGS: LUNG BASES: Unremarkable. No mass. No consolidation. MEDIASTINUM: A small hiatal hernia is noted. ABDOMEN: LIVER: Unremarkable. No mass. GALLBLADDER AND BILE DUCTS: The gallbladder is significantly distended. Pericholecystic inflamma tion is present. A intra and extrahepatic biliary dilatation is present. The common bile duct is dila hattie up to approximately 1.7 cm. Questionable filling defect of the distal common bile duct is raised. PANCREAS: The pancreas is atrophic. Mild peripancreatic inflammatory stranding and fluid is pres ent. SPLEEN: Unremarkable. ADRENALS: Unremarkable. No mass. KIDNEYS AND URETERS: Unremarkable. The kidneys enhance symmetrically. No obstructing renal or ur eteral calculus is seen. No hydronephrosis or hydroureter. No perinephric fluid or stranding. STOMACH AND BOWEL: The stomach is decompressed. The small bowel is relatively normal in caliber. Stool is noted throughout the colon. Scattered colonic diverticula are present without surrounding i nflammation. There is no mucosal thickening or evidence of bowel obstruction. PELVIS: APPENDIX: The appendix is normal in caliber without surrounding inflammation. BLADDER: The bladder is well distended. REPRODUCTIVE: Unremarkable as visualized. ABDOMEN and PELVIS: INTRAPERITONEAL SPACE: Unremarkable. No free air. No significant fluid collection. BONES/JOINTS: Multilevel degenerative change of the spine is present. No acute fracture. SOFT TISSUES: The soft tissues are normal. VASCULATURE: Unremarkable. No abdominal aortic aneurysm. LYMPH NODES: Unremarkable. No enlarged lymph nodes. TUBES, LINES AND DEVICES: A gastric lap band is present. IMPRESSION: 1. Significantly distended gallbladder with pericholecystic inflammation and associate d ductal dilatation. Concern for a common bile duct stone is raised. Superimposed cholecystitis is hernandez ggested. 2. Mild acute pancreatitis. Electronically signed by: Deb Arenas MD 12/11/2022 3:25 AM CORPORATE QUALITY ASSURANCE MANAGER Due to temporary technical issues with the PACS/Fluency reporting system, reports are being signed by the in house radiologists without review as a courtesy to insure prompt reporting. The interpreting radiologist is fully responsible for the content of the report.
--- NOTE | 2022-12-11 13:59 | RAD REPORT ---
EXAM DESCRIPTION: CT Chest Without Intravenous Contrast CLINICAL HISTORY: The patient is 72 years old and is Female; Respiratory illness, nondiagnostic xray TECHNIQUE: Axial computed tomography images of the chest without intravenous contrast. Sagittal an d coronal reformatted images were created and reviewed. This CT exam was performed using one or mor e of the following dose reduction techniques: automated exposure control, adjustment of the mA and/ or kV according to patient size, and/or use of iterative reconstruction technique. COMPARISON: No relevant prior studies available. FINDINGS: LUNGS: The lungs are well-inflated. Minimal areas of atelectasis/scarring in the lung ba ses are noted. There is no lobar consolidation. PLEURAL SPACE: Unremarkable. No pneumothorax. No significant effusion. HEART: No cardiomegaly. No pericardial effusion. BONES/JOINTS: No acute fracture. SOFT TISSUES: The soft tissues are normal. VASCULATURE: Atherosclerosis of the aorta is present. No thoracic aortic aneurysm. LYMPH NODES: Unremarkable. No enlarged lymph nodes. IMPRESSION: No acute findings on this noncontrasted CT of the chest to explain the patient's symptom s. Electronically signed by: Deb Arenas MD 12/11/2022 3:21 AM AUTOMATION OPERATOR Due to temporary technical issues with the PACS/Fluency reporting system, reports are being signed by the in house radiologists without review as a courtesy to insure prompt reporting. The interpreting radiologist is fully responsible for the content of the report.
[2022-12-11] MEDS: TRAMADOL HCL 50 MG TAB PO PRN (15:53)
[2022-12-11] MEDS ORDERED: Ringers Lactate 1,000 ML IV SCH (16:00)
[2022-12-11] MEDS: METRONIDAZOLE 500mg IVPB 500 MG/100 ML BAG IV SCH (16:51)
[2022-12-11] MEDS: [UNRECOGNIZED DRUG - OTHER] OPTH SCH (20:09)
[2022-12-11] MEDS: BROM OPTH SCH (20:09)
[2022-12-11] MEDS: MOXI OPTH SCH (20:09)
[2022-12-11] MEDS: HYDROMORPHONE HCL 1 MG/ML INJ IV PRN (20:09)
[2022-12-11 20:25] LABS: Albumin 3.1 g/dL (3.4-5.0); Bilirubin Direct 3.2 mg/dL (0-0.2); Bilirubin Total 3.9 mg/dL (0.2-1.0); Protein, Total 6.5 g/dL (6.4-8.2)
[2022-12-11] MEDS ORDERED: CIPROFLOXACIN 400mg IV 400 MG/200 ML BAG IV SCH (21:00)
[2022-12-11] MEDS: Ringers Lactate 1,000 ML IV SCH (22:28)
[2022-12-12] MEDS: METRONIDAZOLE 500mg IVPB 500 MG/100 ML BAG IV SCH (00:26)
[2022-12-12] MEDS ORDERED: D50W 25 GM/50 ML SYRINGE IV PRN (00:30)
[2022-12-12] MEDS ORDERED: D50W 25 GM/50 ML SYRINGE IV ONE (00:38)
[2022-12-12] MEDS: HYDROMORPHONE HCL 1 MG/ML INJ IV PRN ×2 (00:42→04:11)
[2022-12-12] MEDS ORDERED: D10W 125 ML IV PRN (00:43)
[2022-12-12 05:29] LABS: Absolute Lymphocytes (CBC) 0.7 K/uL (0.7-4.9); Hematocrit 37.2 % (36.0-45.0); Lymphocytes % 5.4 % (15.3-44.8); MCV 90.9 fL (80-100); MPV 9.8 fL (7.6-11.3)
[2022-12-12 05:35] LABS: Protime INR 1.25
[2022-12-12 05:44] LABS: Albumin 3.1 g/dL (3.4-5.0); Bilirubin Direct 3.8 mg/dL (0-0.2); Bilirubin Total 4.6 mg/dL (0.2-1.0); Magnesium 1.9 mg/dL (1.6-2.4); Potassium 3.6 mmol/L (3.5-5.1); Protein, Total 6.8 g/dL (6.4-8.2)
[2022-12-12 05:54] VITALS: BMI 52.4
[2022-12-12] MEDS: Ringers Lactate 1,000 ML IV SCH ×2 (07:01→21:28)
[2022-12-12] MEDS: CEFEPIME 2 GM in NA CHLORIDE 0.9% 100 ML IV SCH ×2 (08:26→20:12)
[2022-12-12] MEDS: MOXI OPTH SCH ×4 (08:27→20:17)
[2022-12-12] MEDS: BROM OPTH SCH ×4 (08:27→20:17)
[2022-12-12] MEDS: [UNRECOGNIZED DRUG - OTHER] OPTH SCH ×4 (08:27→20:17)
--- NOTE | 2022-12-12 08:29 | RAD REPORT ---
EXAM DESCRIPTION: MRI - Cholangiogram - 12/12/2022 7:59 am CLINICAL HISTORY: Right upper quadrant pain COMPARISON: Noncontrast CT chest 12/11/2022, CT abdomen and pelvis 12/11/2022, abdomen ultrasound TECHNIQUE: Axial and coronal heavily T2 weighted sequences were obtained. Coronal T2 HASTE fat satur ation static and coronal multiplane reconstruction imaging generated and reviewed. Horizontal and adin tical axis rotational views obtained using maximum intensity projection (MIP) protocol. FINDINGS: Gallbladder is distended matching prior imaging. On 1 sequence spared this is suspected 2- 3 mm sized cystic duct stone. Extrahepatic biliary tree is dilated. Common hepatic duct is 15 mm near the confluence of the right a nd left biliary radicles. The common bile duct is 9 mm in the head of the pancreas. There are at leas t 4 biliary duct stones up to 8 mm in size. Additional small stones could be present and obscured by the underlying motion. No stricture or mass identified. Pancreatic duct is normal in size with no suspicious finding. IMPRESSION: Multi stone choledocholithiasis with at least for duct stones identified with the larges t at 8 mm in size. Distended gallbladder with suspected small 2-3 mm sized cystic duct stone.
[2022-12-12] MEDS: hydrOXYzine HCL 25 MG TAB PO PRN ×2 (08:36→15:01)
[2022-12-12] MEDS: Meropenem 1,000 MG in NA CHLORIDE 0.9% 100 ML IV SCH ×2 (09:16→17:16)
[2022-12-12] MEDS: DIPHENHYDRAMINE 50 MG/ML VIAL IV PRN ×2 (10:23→16:33)
--- NOTE | 2022-12-12 10:26 | HP ---
Date of Admission: 12/11/2022 Chief Complaint: The patient comes in with abdominal pain and right back pain. History Of Present Illness: The patient is morbidly obese lady, who is 72 years old, with systemic l upus erythematosus, chronic fatigue, history of renal cancer, and history of hypothyroidism who comes in with right-sided back pain and right upper quadrant pain. She was found to have possibility of c holedocholithiasis on CT scan and increased bilirubin, which has gone up to 3.2, direct bilirubin. S he received IV fluid bolus in the emergency room and given antibiotics to start with. She is admitte d now here in the hospital because Dr. Odom is senior instrumentation engineer. Past Medical History: Lupus, fatigue, history of renal cancer, B12 deficiency, hypothyroidism, GERD, morbid obesity with BMI of 49, history of temporal arteritis, and lumbar radiculopathy. Past Surgical History: Broken ankle and history of nephrectomy. Medications: Tylenol No. #3 p.r.n. for pain, colesevelam 625 mg p.o. b.i.d., cyclobenzaprine p.r.n., Deplin 15 mg once a day, hydroxychloroquine 200 mg p.o. b.i.d., levothyroxine 50 mcg once a day, Lyr ica 225 mg p.o., pantoprazole 40 mg once a day p.o., quetiapine 125 mg p.o. at bedtime, Saxenda 1.2 m g subcu daily, Zoloft 100 mg p.o. daily, and spironolactone 25 mg once a day p.o. Physical Examination: General: The patient is morbidly obese. Vital Signs: Stable. Chest: Clear. Heart: Regular. Abdomen: No guarding, no rebound. Right upper quadrant is tender. Neurologic: Intact. Laboratory Data: Increased bilirubin direct at 3.2. Increased SGOT and SGPT. Details per chart. Assessment And Plan: Acute cholangitis. Continue antibiotics, Cipro and Flagyl. IV fluids. Dr. Lebron joshua consulted. I also discussed with Dr. Odom today. He just reminded himself that the scope, wh ich is needed for ERCP may not be available. He does need to do ERCP or a GI doctor needs to do that and in that case, she may have to be transferred tomorrow. Otherwise, prognosis is guarded. YOJANA/KEN Voice ID: [id number]
[2022-12-12] MEDS: D50W 25 GM/50 ML SYRINGE IV PRN ×2 (11:56→18:55)
--- NOTE | 2022-12-12 13:19 | EKG ---
Test Date: 2022-12-11 Test Time: 01:06:13 Lasting Floorworker: TESSY MEASUREMENT RESULTS: Intervals: Rate: 104 [place]: 172 QRSD: 98 QT: 360 QTc: 473 [place]: P: 51 LA: 172 QRS: 56 T: 14 INTERPRETIVE STATEMENTS: Sinus tachycardia Nonspecific ST and T wave abnormality Abnormal ECG Compared to ECG 07/05/2018 17:56:03 ST (T wave) deviation now present Sinus rhythm no longer present Electronically Signed On 12-12-22 13:15:49 RAG SHREDDER by Ozzy Winter
--- NOTE | 2022-12-12 13:19 | EKG ---
Test Date: 2022-12-11 Test Time: 01:05:05 Keg Varnisher: TESSY MEASUREMENT RESULTS: Intervals: Rate: 129 [place]: QRSD: 96 QT: 422 QTc: 618 [place]: P: [place]: QRS: 61 T: 38 INTERPRETIVE STATEMENTS: Sinus tachycardia ST & T wave abnormality, consider inferior ischemia Abnormal ECG Compared to ECG 07/05/2018 17:56:03 ST (T wave) deviation now present Possible ischemia now present Electronically Signed On 12-12-22 13:16:17 PLAY BACK OPERATOR by Ozzy Winter
--- NOTE | 2022-12-12 13:22 | P.DS ---
Admission Date: 12/11/22 Discharge Date: 12/12/22 Disposition: TRANSFER TO [facility] Discharge Condition: FAIR Hospital Course: GAMA APARICIO HAS ACUTE CHOLANGITIS AND CHOLEDOCHOLITHASIS. DR. TIJERINA IS GI PROCESSING SPECIALIST BUT THE SCOPE FOR ERCP IS NOT AVAILABLE AT [facility]. FOR THIS REASON PATIENT NEEDS TRANSFER TO HIGHER LEVEL OF CARE. I TALKED TO AND PATIENT ABOUT THIS. SHE WILL GO WHEN THE BED IS AVAILABLE. I CHANGED FROM CIPRO AND FLAGYL TO MERREM IV HER WBC COUNT RAISED A LITTLE AND SHE BELONGS TO HIGH RISK CATEGORY. Vital Signs/Physical Exam: Temp Pulse Resp BP Pulse Ox 97.8 F 97 H 20 162/87 H 96 12/12/22 00:00 12/12/22 04:00 12/12/22 04:11 12/12/22 04:00 12/12/22 04:11 Laboratory Data at Discharge: WBC 13.40 K/uL (4.3-10.9) H 12/12/22 05:07 Hgb 11.9 g/dL (12.0-15.0) L 12/12/22 05:07 Hct 37.2 % (36.0-45.0) 12/12/22 05:07 Plt Count 182 K/uL (152-406) 12/12/22 05:07 PT 13.7 SECONDS (9.5-12.5) H 12/12/22 05:07 INR 1.25 12/12/22 05:07 APTT 37.1 SECONDS (24.3-36.9) H 12/12/22 05:07 Sodium 143 mmol/L (136-145) 12/12/22 05:07 Potassium 3.6 mmol/L (3.5-5.1) 12/12/22 05:07 BUN 14 mg/dL (7-18) 12/12/22 05:07 Creatinine 1.02 mg/dL (0.55-1.02) 12/12/22 05:07 Glucose 120 mg/dL (74-106) H 12/12/22 05:07 Magnesium 1.9 mg/dL (1.6-2.4) 12/12/22 05:07 Total Bilirubin 4.6 mg/dL (0.2-1.0) H 12/12/22 05:07 AST 111 U/L (15-37) H 12/12/22 05:07 ALT 84 U/L (13-56) H 12/12/22 05:07 Alkaline Phosphatase 162 U/L (45-117) H 12/12/22 05:07 Lipase 161 U/L (73-393) 12/11/22 00:08 Home Medications: Hydroxychloroquine [Plaquenil*] 200 mg PO BID 06/18/14 Levothyroxine Sodium [Unithroid] 50 mcg PO DAILY 06/18/14 Quetiapine Fumarate [Seroquel] 150 mg PO BEDTIME 06/18/14 Sertraline [Zoloft*] 100 mg PO BEDTIME 06/18/14 Depline 15 mg PO DAILY 07/06/18 Pregabalin [Lyrica] 225 mg PO BID 07/06/18 Belimumab [Benlysta] IV SEECOM 12/11/22 Prednisolone/Moxiflox/Bromfen [Pred OZ-Nwio-Qbbh 1-0.5-0.075%] 1 drop OPTH QID 12/11/22 Followup: Satnam Mcpherson MD [Primary Care Provider] -
[2022-12-13] MEDS: Meropenem 1,000 MG in NA CHLORIDE 0.9% 100 ML IV SCH ×3 (01:06→17:19)
[2022-12-13] MEDS: FENTANYL CITR 100 MCG/2 ML IV PRN ×2 (01:46→07:19)
[2022-12-13] MEDS: Ringers Lactate 1,000 ML IV SCH (03:15)
[2022-12-13] MEDS: CEFEPIME 2 GM in NA CHLORIDE 0.9% 100 ML IV SCH (07:19)
[2022-12-13 07:32] LABS: Absolute Lymphocytes (CBC) 0.6 K/uL (0.7-4.9); Hematocrit 35.3 % (36.0-45.0); Lymphocytes % 5.3 % (15.3-44.8); MCV 89.6 fL (80-100); MPV 9.6 fL (7.6-11.3); RBC Red Blood Cell Count 3.94 M/uL (3.86-4.86)
[2022-12-13 07:34] VITALS: O2SAT 96
[2022-12-13 07:44] LABS: Phosphorus 1.6 mg/dL (2.5-4.9); Potassium 3.7 mmol/L (3.5-5.1)
[2022-12-13] MEDS ORDERED: NITROGLYCERIN 0.4 MG/TAB SL ONE (07:44)
[2022-12-13 07:48] LABS: Albumin 2.9 g/dL (3.4-5.0); Bilirubin Direct 3.3 mg/dL (0-0.2); Protein, Total 6.5 g/dL (6.4-8.2)
[2022-12-13 08:11] LABS: Troponin High Sensitivity 16.5 pg/mL (<58.9)
[2022-12-13] MEDS ORDERED: CLONIDINE 0.2 MG/PATCH TD SCH (09:00)
[2022-12-13] MEDS ORDERED: ENOXAPARIN 40 MG/0.4 ML SQ SCH (09:00)
--- NOTE | 2022-12-13 09:21 | RAD REPORT ---
EXAM DESCRIPTION: Shne Single View12/13/2022 8:02 am CLINICAL HISTORY: Chest pain COMPARISON: December 11, 2022 FINDINGS: Small bilateral pleural effusions with mild bibasilar lung atelectasis. The heart is mildly to moderately enlarged
[2022-12-13] MEDS: [UNRECOGNIZED DRUG - OTHER] OPTH SCH ×3 (09:38→17:22)
[2022-12-13] MEDS: BROM OPTH SCH ×3 (09:38→17:22)
[2022-12-13] MEDS: MOXI OPTH SCH ×3 (09:38→17:22)
[2022-12-13] MEDS ORDERED: LIDOCAINE 1% MPF 5 ML VIAL ONE (09:41)
[2022-12-13] MEDS ORDERED: D10W 125 ML IV PRN (09:46)
[2022-12-13] MEDS ORDERED: FUROSEMIDE 20 MG/ 2ML VIAL IV ONE (10:00)
[2022-12-13] MEDS ORDERED: SODIUM CHLORIDE 0.9% 10ML INJ IV PRN (10:45)
[2022-12-13] MEDS ORDERED: PANTOPRAZOLE 40MG TABLET PO ONE (11:10)
[2022-12-13] MEDS ORDERED: dexAMETHasone 10 MG/ML VIAL IM ONE (11:10)
[2022-12-13] MEDS ORDERED: dexAMETHasone 4 MG/ML VIAL IM ONE (11:15)
--- NOTE | 2022-12-13 11:23 | P.CNS ---
Date of Consult: 12/13/22 Reason for Consult: Shortness of breath jaundiced Chief Complaint: Chest pain History of Present Illness: Patient is 72 years of age presented with abdominal pain then developed chest pain is a history of renal disease lupus gastric surgery remain also complaining of some back pain complaining of shortness of breath Never smoked Allergies No Known Allergies Allergy (Verified 06/18/14 22:03) Home Medications: Hydroxychloroquine [Plaquenil*] 200 mg PO BID 06/18/14 Levothyroxine Sodium [Unithroid] 50 mcg PO DAILY 06/18/14 Quetiapine Fumarate [Seroquel] 150 mg PO BEDTIME 06/18/14 Sertraline [Zoloft*] 100 mg PO BEDTIME 06/18/14 Pregabalin [Lyrica] 225 mg PO BID 07/06/18 Belimumab [Benlysta] IV SEECOM 12/11/22 Prednisolone/Moxiflox/Bromfen [Pred QZ-Quuv-Atxp 1-0.5-0.075%] 1 drop OPTH QID 12/11/22 Levomefolate/Algal Oil [Deplin-Algal Oil 15 mg Capsule] 15 mg PO DAILY 12/12/22 - Past Medical/Surgical History Diabetic: No -: htn, hypothyroid, lupus, -: tonsil, r partial kidney removal, maurizio knee scoping, lap band - Social History Smoking Status: Never smoker Alcohol use: No CD- Drugs: No Caffeine use: Yes Place of Residence: Home Review of Systems General: Weakness Respiratory: Shortness of Breath Cardiovascular: Chest Pain Physical Examination Temp Pulse Resp BP Pulse Ox 97.2 F 82 25 H 158/67 H 98 12/13/22 04:00 12/13/22 08:59 12/13/22 05:00 12/13/22 08:59 12/13/22 05:00 General: Alert, Oriented x3, Other (Patient is jaundiced) HEENT: Scleral icterus Respiratory: Clear to auscultation bilaterally, Diminished Cardiovascular: No edema, Regular rate/rhythm, Normal S1 S2 Gastrointestinal: Normal bowel sounds, Soft and benign, Non-distended - Problems (1) Obstructive jaundice Current Visit: Yes Status: Acute Plan: Patient is 72 years of age admitted with abdominal pain has obstructive jaundice. Presumed secondary to gallstones associated with mild pancreatitis and cholangitis labs reviewed patient is jaundice bilirubin is elevated CT pulmonary angiogram done results pending patient does have a distended gallbladder hemodynamically stable oxygenation satisfactory blood pressure is mildly elevated perhaps due to some chest discomfort patient has bilateral pleural effusion patient needs to be transferred also given 1 dose of Lasix blood cultures are negative
[2022-12-13] MEDS: TRAMADOL HCL 50 MG TAB PO PRN (11:30)
[2022-12-13] MEDS ORDERED: ENOXAPARIN 100 MG/ML SYR SQ ONE (12:00)
[2022-12-13] MEDS: FUROSEMIDE 20 MG/ 2ML VIAL IV SCH ×2 (14:09→17:20)
--- NOTE | 2022-12-13 14:23 | DS ---
Final Diagnoses: Acute cholangitis, choledocholithiasis, cholelithiasis, cholecystitis, mild pancrea titis, chest pain, atypical pleuritic chest pain, mild shortness of breath, morbid obesity, systemic lupus erythematosus. Hospital Course: Patient who is a morbidly obese lady with lupus, comes in with right flank pain and upper abdominal pain, turns out to have choledocholithiasis, cholangitis, cholecystitis confirmed by MRCP and CT scan plus ultrasound. She was given meropenem IV, improving on her infection side. The white count is improving. Dr. Odom has been consulted, but the probe for ERCP this hospital is no t available at this point and is dysfunctional and cannot be used, so we are hoping for a transfer to [facility] or [facility] for tertiary care facility. The patient and the family are a estrada of this. Meanwhile, this morning, the patient had episode of chest pain, which was pleuritic an d she knows she had pleurisy before. She also has minimal shortness of breath. I ordered a D-dimer, BNP, chest x-ray, CT angio. Angio could not be done because of her IV came out and she has a centra l line placement. D-dimer is high at 1150 and BNP was moderately high. I have given her Lasix 40 mg IV push and 20 IV b.i.d., saline lock IV. She is clinically stable. We are just trying to make anson e she is stable enough to go to a different facility, which is why she is getting this urgent treatme nt done. She also given a dose of Decadron 4 mg intramuscular for pleuritic chest pain, which is lik zahra in patients with lupus, and she is also given Protonix p.o. or IV depending on access to IV. Cli nically stable. Talked to patient's and herself in detail yesterday. I tried to contact the family today also. This discharge summary is done second time because the discharge was delayed as the [facility] does not have any beds in [place]. We are trying to have access to any other hospital in [place] at this point. YOJANA/KEN Voice ID: [id number] Report ID: [id number]
--- NOTE | 2022-12-13 14:47 | CON ---
Date of Consultation: 12/13/2022 Reason For Consultation: Central line placement in ICU, emergent. History Of Present Illness: This is the case of a 72-year-old patient who came here for medical issu es. They have been treating that. They are not consulting for those but the patient need a central line placement emergently. Allergies: NONE. Social History: Does not smoke. Does not drink alcohol. Past Medical History: Hypertension, hypothyroidism, morbid obesity. Past Surgical History: Include tonsillectomy, lap band, partial kidney removal, bilateral knee scope . Physical Examination: General: Patient is awake, alert. No distress. Chest: Bilateral breath sounds. Neck: Supple. No JVD. Extremities: Good capillary refill. Abdomen: Soft and depressible. No guarding or rebound. Laboratory Data: Blood work shows WBC count of 11, hemoglobin of 11, platelets of 170. INR is 1.25. Blood work shows a bilirubin of 4 with a direct bilirubin of 3.3, AST 64, ALT 61, alkaline phosphat e 177. Assessment: A 72-year-old patient with multiple medical problems, here what is pending a transfer to another institution to higher level of care for many medical problems including obstructive jaundice . Surgical consult was obtained only for the central line placement. So the benefits, alternatives, and risks of central line placement were fully explained to the patient which include, but not limit ed to, infection, bleeding, damage to adjacent structures, anesthesia complication, pneumothorax, hem othorax, DVTs, PE, MA, and even . She also understands this may not relieve any symptoms. She might need more than one surgical interv ention. HM/MODL Voice ID: [id number] Report ID: [id number]
--- NOTE | 2022-12-13 14:53 | OP ---
Date of Procedure: 12/13/2022 Surgeon: David Whitaker MD Description Of Procedure: Patient was brought to the operating room, placed in supine position. Ane sthesia was done without complication and was performed under local anesthetic. Patient placed in Tr endelenburg position. A time-out was called. Right neck and chest were prepped and draped in steril e fashion. Local anesthesia was applied followed by insertion of an 18-gauge needle in the internal jugular vein. We did it first attempt, but the Glidewire did not want to pass properly. So we did a second attempt and once again we had an issue with a guidewire, maybe some kinks, some anatomy that we cannot see at this moment. So, at that moment, I went to the right subclavian area, once again in Trendelenburg position. An 18-gauge needle was placed at this right subclavian vein at the first at tempt. A guidewire was passed through. Needle was removed and a central line triple lumen was place d using Seldinger technique. Excellent backflow and inflow. The line was secured in place with nylo n and covered with sterile dressings. Patient tolerated the procedure well. The plan will be the patient will have a chest x-ray. JEFE/KEN Voice ID: [id number] Report ID: [id number]
--- NOTE | 2022-12-13 15:02 | RAD REPORT ---
EXAM DESCRIPTION: Gabet Single View12/13/2022 2:17 pm CLINICAL HISTORY: Device placement/central venous catheter placement IMPRESSION: Central venous catheter with its tip in the proximal superior vena cava No pneumothorax
[2022-12-13 16:31] LABS: Troponin High Sensitivity 14.8 pg/mL (<58.9)
[2022-12-13 17:23] VITALS: BP 169/66
--- NOTE | 2022-12-13 17:44 | CON ---
Date of Consultation: 12/13/2022 Reason For Consultation: Chest pain. History Of Present Illness: This is a 72-year-old female, no medical history of cardiac disease. Ash bruno has history of lupus, B12 deficiency, hypothyroidism, and acid reflux disease, [facility] and she had a chest pain that is very sharp, every time she tries to take a deep breath and denies having any exertional chest pain. No shortness of breath, orthopnea, or cough. No other complaints. Past Medical History: Lupus, B12 deficiency, hypothyroidism, obesity, acid reflux, history of renal cell cancer. Medications: Refer to reconciliation sheet for detailed list. Allergies: NO KNOWN DRUG ALLERGIES. Family History: No premature coronary artery disease or cancer. Social History: She does not smoke or drink. Does not use any drugs. Review of Systems: All systems reviewed and they were negative except what mentioned in the HPI. Physical Examination: Vital Signs: Temperature is 98.4, pulse 69, breathing at 17, blood pressure is 170/69, saturating 98 % with oxygen. General: Pleasant elderly female, morbidly obese, no apparent distress. Head and Neck: Pupils are equal, reactive to light. Intact eye movements. No JVD. No cervical lym phadenopathy. Neck is supple. Thyroid is not enlarged. Lungs: Clear to auscultation bilaterally. No rhonchi, rales, or crackles. No accessory muscle use. Heart: Regular rate and rhythm. No extra sounds. Abdomen: Soft, nontender. Bowel sounds positive. No organomegaly. No masses or hernia. No rigidi ty or rebound. Extremities: No edema, clubbing, or cyanosis. Intact pulses. Skin: No rash. Neurologic: Alert, awake, oriented x3. No acute focal deficits appreciated. Investigations: BUN 11, creatinine 0.83. Troponins x3 are negative. AST is 64, ALT 61, and total b ilirubin is 4. Assessment And Recommendation: Chest pain. This is atypical pain, likely noncardiac. Likely, this pain is related to the process of her common bile duct. However, cardiac enzymes are negative. Concepción ent obviously has an acute GI issue, now to be handled and the patient is set for transfer to higher level of care for that. Once patient's GI problems resolves, she can be followed as an outpatient, b ut no further cardiac workup as an inpatient is recommended. Thank you for the consult. AZAEL Voice ID: [id number] Report ID: [id number]
[2022-12-13 18:39] VITALS: TEMP 97.5
--- NOTE | 2022-12-13 19:00 | RAD REPORT ---
EXAM DESCRIPTION: CT - Thorax Wo Con - 12/13/2022 6:18 pm CLINICAL HISTORY: Chest pain COMPARISON: December 11, 2022 TECHNIQUE: Computed axial tomography of the chest was obtained. Contrast was not requested. All CT scans are performed using dose optimization technique as appropriate and may include automated exposure control or mA/KV adjustment according to patient size. FINDINGS: The evaluation of mediastinum, yanelis and vessels is limited secondary to lack of IV contras t administration. No mediastinal or hilar lymphadenopathy is seen. Small bilateral pleural effusions with mild bibasilar lung atelectasis. Mild bilateral interstitial lung opacities No pericardial effusion Heart is mildly to moderately enlarged IMPRESSION: Small bilateral pleural effusions Mild bilateral interstitial lung opacities probably mild interstitial pulmonary edema
[2022-12-14] MEDS ORDERED: dexAMETHasone 4 MG/ML VIAL IV SCH (09:00)
[2022-12-14] MEDS ORDERED: PANTOPRAZOLE 40 MG INJ IVP SCH (09:00)
--- NOTE | 2022-12-16 17:07 | EKG ---
Test Date: 2022-12-13 Test Time: 08:05:16 Header Setup Operator: MG MEASUREMENT RESULTS: Intervals: Rate: 81 [place]: 144 QRSD: 88 QT: 390 QTc: 453 [place]: P: 60 [place]: 144 QRS: 81 T: 18 INTERPRETIVE STATEMENTS: Normal sinus rhythm Normal ECG Compared to ECG 12/11/2022 01:06:13 Sinus tachycardia no longer present ST (T wave) deviation no longer present Electronically Signed On 12-16-22 16:59:37 STRAPPER AND BUFFER by Ozzy Winter
== END 2022-12-13 19:08 | disposition short-term general hospital (02) | DRG 871 ==
LOC: ER 23:51 → ERHOLD 12-11 06:39 → 3RD-ICU 12-11 14:44
PROVIDERS: ADMIT Internal Medicine; ATTEND Internal Medicine
PROC: 02HV33Z Insertion of Infusion Device into Superior Vena Cava, Percutaneous Approach (ICD-10-PCS; principal; 2022-12-13)
DX: A41.9 Sepsis, unspecified organism (principal); K85.10 Biliary acute pancreatitis without necrosis or infection; E87.20 Acidosis, unspecified; Z68.43 Body mass index [BMI] 50.0-59.9, adult; K80.33 Calculus of bile duct with acute cholangitis with obstruction; R65.20 Severe sepsis without septic shock; E66.01 Morbid (severe) obesity due to excess calories; E03.9 Hypothyroidism, unspecified; I10 Essential (primary) hypertension; L93.0 Discoid lupus erythematosus; K21.9 Gastro-esophageal reflux disease without esophagitis; Z79.890 Hormone replacement therapy; Z85.528 Personal history of other malignant neoplasm of kidney; Z79.899 Other long term (current) drug therapy; Z20.822 Contact with and (suspected) exposure to COVID-19
CPT/HCPCS: 36415; 71045; 71250; 74177; 74181; 76700; 80048; 80053; 80076; 81003; 82248; 82550; 82947; 83605; 83690; 83735; 83880; 84100; 84484; 85025; 85379; 85610; 85730; 86301; 87040; 87811; 93005; 96365; 96375; 99285; J0692; J0744; J1100; J1170; J1200; J1650; J1940; J2001; J2185; J2405; J3010; J7030; J7040; J7120; Q9967

== ENCOUNTER 2023-08-08 04:16 | Emergency (ER) | payer OTHER ==
--- OUTSIDE RECORDS SUMMARY | 2023-08-08 04:24 | XMS REPORT | Continuity of Care Document ---
:1950 Author Organization [facility] t Address [address] [facility] [address] [place] [address] Care Team Providers Name Role Phone SHARPLESS Primary Care Physician Unavailable HYACINTH RODRIGUEZ Attending Clinician Unavailable Hyacinth Romero Attending Clinician Doctor Unassigned, Andrew Attending Clinician Unavailable MEENU MAXWELL Attending Clinician Unavailable Erik COREAS, Jeannie Tariq Attending Clinician [phone] Nae Cortes MD Attending Clinician Meenu Maxwell MD Attending Clinician Yonny Patel MD Attending Clinician Wellington Mejia CRNA Attending Clinician Winter Henderson MD Attending Clinician Francois COREAS, Pablito Peres Attending Clinician Darryl Ayala MD Attending Clinician [phone] Ludwin Jeong MD Attending Clinician JEANNIE DSOUZA Attending Clinician Unavailable Brynn Kearns RN Attending Clinician Unavailable Only, Ang Db Test Attending Clinician Unavailable Loly Nelson Attending Clinician LOLY MOELLER Attending Clinician Unavailable Padilla Roman MD Attending Clinician MICHAEL FOX M.D. Attending Clinician Unavailable JEANNIE DSOUZA Admitting Clinician Unavailable MEENU MAXWELL Admitting Clinician Unavailable Payers Payer Name Policy Type Policy Number Effective Date Expiration Date Pati beatty [employer] MANAGED [id number] 2022 MEDICARE PPO-ANGELA 00:00:00 AETNA MEDICARE HMO [id number] 2022 POS PPO 00:00:00 Problems Condition Condition Condition Status Onset Resolution Last Treating Co mments Source Name Details Category Date Date Treatment Clinician Date SLE SLE Disease Recurre [facility] (systemic (systemic nce 28 [facility] lupus lupus 00:00: Medical erythemato erythemato 00 Ce nter jennie) jennie) Acute Acute Disease Recurre [facility] respirator respirator nce 12-13 Diana kes y failure y failure 00:00: Medi gemma with with 00 Center hypoxia hypoxia Cholecysti Cholecysti Disease Active [facility] 00:[facility]: Medical 00 Center Gallstone Gallstone Disease Active [facility] pancreatit pancreatit -28 [facility] kes is is 00:00: Medical 00 Center Choledocho Choledocho Disease Active [facility] lithiasis lithiasis 28 [facility] with with 00:00: Medical obstructio obstructio 00 Ce nter n n GERD GERD Disease Active [facility] (gastroeso (gastroeso 28 Diana kes phageal phageal 00:00: Medical reflux reflux 00 Center disease) disease) UGIB UGIB Disease Active [facility] (upper (upper 1-18 [facility] gastrointe gastrointe 00:00: Me dical stinal stinal 00 Center bleed) bleed) Acute on Acute on Disease Active [facility] chronic chronic 18 [facility] anemia due anemia due 00:00: Me dical to blood to blood 00 Center loss and loss and iron def. iron def. Dyslipidem Dyslipidem Disease Active [facility] ia ia 5-15 [facility] 00:00: Medical 00 [place] No known No known Disease Metho di active active st problems problems Hospit a l Left knee Left knee Problem Active [facility] pain, pain, HL7.CCDAR2 Physic i unspecifie unspecifie an s d d chronicity chronicity Arthritis Arthritis Problem Active [facility] of knee, of knee, HL7.CCDAR2 Ph ysici left left ans Thyroid Thyroid Disease Active [facility] disease disease [facility] Rheumatoid Rheumatoid Disease Resolve 2022-12-13 2022-12-13 [facility] arthritis arthritis d 11-16 00:00:00 23:46:05 [facility] 00:00: Medical 00 [place] Lupus Lupus Disease [facility]olve 2022-12-13 2022-12-[address] [facility] [address] d 00:00:00 23:46:07 [facility] Allergies, Adverse Reactions, Alerts Allergy Allergy Status Severity Reaction(s) Onset Inactive Treating Comm ents Source Name Type Date Date Clinician MORPHINE Allergy Active Itching [facility] 12-13 [facility] 00:00: Medical 00 [place] Morphine Propensi Active Itching [facility] S t ty to 12-13 [facility] adverse 00:00: Medical reaction 00 [place] s NO KNOWN Drug Active Univers ALLERGIE Class ity of [facility] NO KNOWN Allergy Active [facility] ALLERGIE S Family History Family Member Diagnosis Comments Start Date Stop Date Source Natural father Kidney disease Method [facility] Natural father Kidney disease [facility] Natural mother Arthritis [facility] Natural mother Cancer [facility] Natural mother Cancer [facility] Natural mother Heart disease [facility] Natural mother Hypertension [facility] Social History Social Habit Start Date Stop Date Quantity Comments Source History of tobacco Cigarette Smoker [facility] Sexual orientation Method [facility] Hospital History [facility] Transport Non-Med Medical Center Alcohol intake 2022-12-18 2022-12-18 Current [facility] 00:00:00 00:00:00 non-drinker of Medical Ce nter alcohol (finding) History [facility] 2022-12-14 2022-12-14 2 [facility] Transport Med 00:00:00 00:00:[address] [facility] 2022-12-14 2022-12-[address] [facility] Housing Unable to 00:00:00 00:00:00 Medical Center Pay History [facility] 2022-12-14 2022-12-[address] [facility] Housing Places 00:00:00 00:00:00 Medical Ce nter Lived History [facility] 2022-12-14 2022-12-[address] [facility] Housing Homeless 00:00:00 00:00:00 Medical Center Last Year Exposure to 2022-12-03 2022-12-[address] [facility] SARS-CoV-2 (event) 00:00:00 20:59:00 [facility] Cigarettes smoked 2017-12-03 2017-12-[address] [facility] current (pack per 00:00:00 00:00:00 Medical Center day) - Reported Cigarette 2017-12-03 2017-12-[address] [facility] pack-years 00:00:00 00:00:00 [facility] Tobacco use and 2017-12-03 2017-12-[address] Diana kes exposure 00:00:00 00:00:00 tobacco non-user [facility] History of Social 2017-09-30 2017-09-[address] function 00:00:00 00:00:00 Hospital Sex Assigned At 1950 [address] [facility] [address] Diana kes 00:00:00 00:00:00 [facility] Smoking Status Start Date Stop Date Source Former smoker 2017-12-03 00:00:00 2017-12-03 00:00:00 [facility] Never smoked tobacco [facility] Medications Ordered Filled Start Stop Current Ordering Indication Dosage Frequency Signature Comments Components Source Medication Medication Date Date Medication? Clinician (SIG) Name Name PREGABALIN Yes 250mg Take 250 [facility] (LYRICA 7-03 mg by ity of ORAL) 16:08: mouth in [place] [address] the Medical morning Branch and 250 mg in the evening. CYCLOSPORIN Yes Place in Un [place] E (RESTASIS 7-03 each eye. ity of OPHTHALMIC) 16:08: [place] [address] Medical Branch levomefolat Yes Take by Uni vers e-algal oil 7-03 mouth. ity of 15.314 16:08: [place] mg Cap 50 Medical Branch BELIMUMAB 2023-0 Yes Inject Univer s IV 7-03 intravenou ity of 16:08: sly once [place] [address] every Medical month. Branch darifenacin 2023-0 Yes 15mg Take 1 Univ ers 15 mg 24 hr 7-03 tablet by ity of tablet 16:08: mouth in [place] [address] the Medical morning. Branch clotrimazol 2023-0 Yes Apply to Un [place] e/betametha 7-03 area(s) 2 ity of sone dip 16:08: (two) [place] (CLOTRIMAZO 50 times Medical LE-BETAMETH daily. Branch ASONE TOPICAL) PREGABALIN 2023-0 Yes 250mg Take 250 [facility] [place] (LYRICA 7-03 mg by ity of ORAL) 16:08: mouth in [place] [address] the Medical morning Branch and 250 mg in the evening. CYCLOSPORIN 2023-[address] in Un [place] E (RESTASIS 7-03 each eye. ity of OPHTHALMIC) 16:08: [place] [address] Medical Branch levomefolat 2023-0 Yes Take by Uni vers e-algal oil 7-03 mouth. ity of 15-90.314 16:08: [place] mg Cap 50 Medical Branch BELIMUMAB 2023-0 Yes Inject Univer s IV 7-03 intravenou ity of 16:08: sly once [place] [address] every Medical month. Branch darifenacin 2023-0 Yes 15mg Take 1 Univ ers 15 mg 24 hr 7-03 tablet by ity of tablet 16:08: mouth in [place] [address] the Medical morning. Branch clotrimazol 2023-0 Yes Apply to Un [place] e/betametha 7-03 area(s) 2 ity of sone dip 16:08: (two) [place] (CLOTRIMAZO 50 times Medical LE-BETAMETH daily. Branch ASONE TOPICAL) PREGABALIN 2023-0 Yes 250mg Take 250 Un [place] (LYRICA 7-03 mg by ity of ORAL) 16:08: mouth in [place] [address] the Medical morning Branch and 250 mg in the evening. CYCLOSPORIN 2023-[address] in Un [place] E (RESTASIS 7-03 each eye. ity of OPHTHALMIC) 16:08: [place] [address] Medical Branch levomefolat 2023-0 Yes Take by Uni vers e-algal oil 05-18 mouth. ity of 15-90.314 16:08: [place] mg Cap 50 Medical Branch BELIMUMAB 2022-0 Yes Inject Univer s IV 05-18 intravenou ity of 16:08: sly once [place] 50 every Medical month. Branch darifenacin 2022-0 Yes 15mg Take 1 Univ ers 15 mg 24 hr - tablet by ity of tablet 16:08: mouth in [place] 50 the Medical morning. Branch clotrimazol 0 Yes Apply to Un [place] e/betametha 05-18 area(s) 2 ity of sone dip 16:08: (two) [place] (CLOTRIMAZO 50 times Medical LE-BETAMETH daily. Branch ASONE TOPICAL) mirabegron 2022-0 Yes Take by Univ ers (MYRBETRIQ) - mouth. ity of 50 mg 15:01: [place] tablet 43 Medical Branch cyclobenzap 0 Yes Take by Uni vers rine HCl 05-18 mouth. ity of (FLEXERIL 15:01: [place] ORAL) 43 Medical Branch pantoprazol 2022-0 Yes 40mg Take 1 Univ ers e 40 mg EC 7- tablet by ity of tablet 15:01: mouth in [place] 43 the Medical morning. Branch mirabegron 2022-0 Yes Take by Univ ers (MYRBETRIQ) - mouth. ity of 50 mg 15:01: [place] tablet 43 Medical Branch cyclobenzap 2022-0 Yes Take by Uni vers rine HCl 05-18 mouth. ity of (FLEXERIL 15:01: [place] ORAL) 43 Medical Branch pantoprazol 2022-0 Yes 40mg Take 1 Univ ers e 40 mg EC - tablet by ity of tablet 15:01: mouth in [place] 43 the Medical morning. Branch mirabegron 2022-0 Yes Take by Univ ers (MYRBETRIQ) - mouth. ity of 50 mg 15:01: [place] tablet 43 Medical Branch cyclobenzap 2022-0 Yes Take by Uni vers rine HCl - mouth. ity of (FLEXERIL 15:01: [place] ORAL) 43 Medical Branch pantoprazol 2022-0 Yes 40mg Take 1 Univ ers e 40 mg EC 7-03 tablet by ity of tablet 15:01: mouth in [place] 43 the Medical morning. Branch estradioL 2022-0 Yes [id number] Apply 1g Univers 0.01 % (0.1 7-03 vaginally ity of mg/gram) 00:00: at bedtime Ken as vaginal 00 every Medical cream night for Branch 2 weeks and then apply 1g vaginally at bedtime 2 times per week estradioL 2022-0 Yes [id number] Apply 1g Univers 0.01 % (0.1 7-03 vaginally ity of mg/gram) 00:00: at bedtime Ken as vaginal 00 every Medical cream night for Branch 2 weeks and then apply 1g vaginally at bedtime 2 times per week estradioL 2022-0 Yes [id number] Apply 1g Univers 0.01 % (0.1 7-03 vaginally ity of mg/gram) 00:00: at bedtime Ken as vaginal 00 every Medical cream night for Branch 2 weeks and then apply 1g vaginally at bedtime 2 times per week docusate 2022-0 Yes 100mg Take [address] [facility] sodium 2-10 mg by [facility] (COLACE) 16:34: mouth. Medical 100 MG 06 [place] capsule levomefolat 0 Yes Take by [facility] e-algal oil 2-10 mouth. [facility]ukes (Deplin, 16:34: Medical algal oil,) 06 Center 15-90.314 mg Cap prednisolon Yes Apply to [facility] e-moxiflox- 2-10 eye(s). [facility] bromfen 16:34: Medical 1-0.5-0.075 06 Center % DrpS biotin 5 mg 2022-0 2022- No Take by [facility] Cap 2-10 -28 mouth. [facility]ukes 16:34: 00:00 Medical 06 :00 Center colesevelam 2022-0 202- No 1875mg Take 1,[address] [facility] (WELCHOL) 2-10 -28 mg by [facility] 625 mg 16:34: 00:00 mouth 2 Medical tablet 06 :00 (two) Center times daily with breakfast and dinner. spironolact 2022-0 2022- No 25mg QD Take [address] one 2-10 -28 by mouth [facility]ukes (ALDACTONE) 16:34: 00:00 daily. Med ical 25 MG 06 :00 Center tablet hydroxychlo 2023-0 Yes systemic 200mg Q.5D Take [address] roquine 2-09 lupus mg by [facility]ukes (PLAQUENIL) 16:34: erythematos mouth 2 Medical 200 mg 55 us (two) Center tablet times daily . pregabalin 2022-0 Yes 225mg QD Take [address] (LYRICA) 2-09 mg by [facility]ukes 100 MG 16:34: mouth Medical capsule 55 daily . Center predniSONE 0 Yes systemic 5mg Take [address] [facility] (DELTASONE) 2-09 lupus by mouth Addis es 2.5 MG 16:34: erythematos as needed Medical tablet 55 us . Center BELIMUMAB 0 Yes systemic Inject [facility] (BENLYSTA 2-09 lupus intravenou [place]is es IV) 16:34: erythematos sly every M edical 55 us 30 Center (thirty) days. levothyroxi Yes hypothyroid 50ug Take [address] ne 2-09 ism mcg by [facility]ukes (SYNTHROID, 16:34: mouth Medic al LEVOTHROID) 55 Every Center 50 MCG morning on tablet an empty stomach. cyclobenzap 0 Yes 10mg Take [address] [facility] rine 2-09 by mouth 3 [facility]ukes (FLEXERIL) 16:34: (three) Medi gemma 10 MG 55 times Center tablet daily as needed for Muscle spasms. acetaminoph Yes back pain 650mg Take [address] en 2-09 mg by [facility]ukes (TYLENOL) 16:34: mouth Medical 325 MG 55 every 6 Center tablet (six) hours as needed for Pain. polyethylen 2022-0 2022- No 17g QD Take [address] [facility] e glycol 12-24-11 by mouth [facility] (GLYCOLAX) 00:00: 23:59 daily for M edical 17 gram 00 :00 3 days. Center packet senna 2022-0 2023- No 17.2mg QD Take [address] (SENOKOT) 12-23-07 tablets [facility]ukes 8.6 mg 00:00: 23:59 (17.2 mg Medica l tablet 00 :00 total) by Center mouth nightly. docusate 0 Yes 100mg Take [address] sodium 2-01 mg by Lukes (COLACE) 19:19: mouth. Medical 100 MG 04 Center capsule levomefolat Yes Take by [facility] e-algal oil 12-17 mouth. [facility]ukes (Deplin, 19:19: Medical algal oil,) 04 Center 1590.314 mg Cap prednisolon Yes Apply to [facility] e-moxiflox- 12-17 eye(s). Jose bromfen 19:19: Medical 1-0.5-0.075 04 [place] % DrpS biotin 5 mg 2022- No Take by [facility] Cap 12-17 mouth. Lukes 19:19: 00:00 Medical 04 :00 Center colesevelam 2022- No 1875mg Take 1,[address] (WELCHOL) 12-17 mg by [facility] 625 mg 19:19: 00:00 mouth 2 Medical tablet 04 :00 (two) Center times daily with breakfast and dinner. spironolact 2022- No 25mg QD Take [address] [facility] one 12-17 by mouth [facility]ukes (ALDACTONE) 19:19: 00:00 daily. Med ical 25 MG 04 :00 Center tablet hydroxychlo Yes systemic 200mg Q.5D Take [address] roquine 1-28 lupus mg by [facility]ukes (PLAQUENIL) 22:29: erythematos mouth 2 Medical 200 mg 02 us (two) Center tablet times daily . pregabalin Yes 225mg QD Take [address] (LYRICA) 1-28 mg by [facility]ukes 100 MG 22:29: mouth Medical capsule 02 daily . Center predniSONE Yes systemic 5mg Take [address] [address] (DELTASONE) - lupus by mouth Addis es 2.5 MG 22:29: erythematos as needed Medical tablet 02 us . [place] cyclobenzap 0 Yes 10mg Take [address] rine - by mouth 3 [facility]ukes (FLEXERIL) 22:29: (three) Medi gemma 10 MG 02 times Center tablet daily as needed for Muscle spasms. levothyroxi Yes hypothyroid 50ug Take [address] ne - ism mcg by [facility]ukes (SYNTHROID, 21:43: mouth Medic al LEVOTHROID) 18 Every Center 50 MCG morning on tablet an empty stomach. solifenacin 2022- No urinary 10mg QD Take [address] (VESICARE) 12-13 urge by mouth Luke s 10 MG 21:41: 00:00 incontinenc daily. Me dical tablet 11 :00 e Center solifenacin 2022- No urinary 10mg QD Take [address] (VESICARE) 12-13 urge by mouth Luke s 10 MG 21:41: 00:00 incontinenc daily. Me dical tablet 11 :00 e Center cholecalcif 2022- No vitamin D 1000U QD Take 1,[address] gomez, 12-13 deficiency Units by Addis es vitamin D3, 21:41: 00:00 mouth Medi gemma (VITAMIN 05 :00 daily. Center D3) 1,000 unit capsule cholecalcif 2022- No vitamin D 1000U QD Take 1,[address] gomez, 12-13 deficiency Units by Addis es vitamin D3, 21:41: 00:00 mouth Medi gemma (VITAMIN 05 :00 daily. Center D3) 1,000 unit capsule cyanocobala 2022- No 1{tbl} QD Place [address] min-cobamam 12-13 tablet [facility] herman (B12) 21:41: 00:00 under the Me dical 5,000-100 02 :00 tongue Center mcg Lozg daily. cyanocobala 2022- No 1{tbl} QD Place [address] min-cobamam 12-13 tablet [facility] herman (B12) 21:41: 00:00 under the Me dical 5,000-100 02 :00 tongue Center mcg Lozg daily. C,E,ZINC,CO 2022- No 1{tbl} QD Take [address] PPER 12-13 tablet by [facility]ukes 11/[id number]/ 21:37: 00:00 mouth Medi gemma LUT 39 :00 daily. Center (OCUVITE ADULT 50+ ORAL) C,E,ZINC,CO 2022-2022- No 1{tbl} QD Take [address] PPER 12-13 tablet by Lukes [id number]/ 21:37: 00:00 mouth Medi gemma LUT 39 :00 daily. [place] (OCUVITE ADULT 50+ ORAL) acetaminoph Yes back pain 650mg Take [address] en 1-28 mg by Lukes (TYLENOL) 21:08: mouth Medical 325 MG 31 every 6 Center tablet (six) hours as needed for Pain. omega-3 2022- No 1g QD Take 1 g [facility] fatty acids 12-13 by mouth Addis es (OMEGA 3) 21:08: 00:00 daily. Medic al 1,000 mg 30 :00 [place] Cap omega-3 2022- No 1g QD Take 1 g [facility] fatty acids 12-13 by mouth Addis es (OMEGA 3) 21:08: 00:00 daily. Medic al 1,000 mg 30 :00 [facility] sertraline 2022- No major 100mg QD Take [address] (ZOLOFT) 25 12-13-28 depressive mg by Lukes MG tablet 21:07: 00:00 disorder mouth Me dical 12 :00 daily. [place] QUEtiapine 2022- No 100mg QD Take [address] (SEROQUEL) 12-13-28 mg by [facility]ukes 100 MG 21:07: 00:00 mouth Medical tablet 12 :00 nightly. [place] sertraline 2022- No major 100mg QD Take [address] (ZOLOFT) 25 -13 12-28 depressive mg by Lukes MG tablet 21:07: 00:00 disorder mouth Me dical 12 :00 daily. [place] QUEtiapine 2022- No 100mg QD Take [address] (SEROQUEL) 12-13-28 mg by [facility]ukes 100 MG 21:07: 00:00 mouth Medical tablet 12 :00 nightly. [place] levomefolat 2022- No 1{tbl} QD Take [address] e-algal oil 12-13 tablet by Diana herron (DEPLIN, 21:05: 00:00 mouth Medical ALGAL OIL,) 35 :00 daily. [place] 7.5-90.314 mg Cap traMADol 2022- No 50mg Take [address] (ULTRAM) 50 12-13 by mouth Addis es mg tablet 21:05: 00:00 every 6 Medi gemma 35 :00 (six) Center hours as needed for Pain. levomefolat 2022- No 1{tbl} QD Take [address] e-algal oil 12-13 tablet by Diana herron (DEPLIN, 21:05: 00:00 mouth Medical ALGAL OIL,) 35 :00 daily. [place] 7.5-90.314 mg Cap traMADol 2022- No 50mg Take [address] (ULTRAM) 50 12-13 by mouth Addis es mg tablet 21:05: 00:00 every 6 Medi gemma 35 :00 (six) Center hours as needed for Pain. BELIMUMAB Yes systemic Inject [facility] (BENLYSTA 12-13 lupus intravenou Addis es IV) 21:05: erythematos sly every M edical 33 us 30 Center (thirty) days. darifenacin Yes 15mg QD Take [address] (ENABLEX) 1-24 by mouth [facility]ukes 15 mg 24 hr 00:00: daily. Medi gemma tablet 00 [place] darifenacin Yes 15mg QD Take [address] (ENABLEX) 1-24 by mouth [facility]ukes 15 mg 24 hr 00:00: daily. Medi gemma tablet 00 [place] pantoprazol 2021-11 Yes 40mg QD Take [address] [facility] e 2-24 by mouth [facility]ukes (PROTONIX) 00:00: every Medica l 40 MG 00 morning. [place] tablet pantoprazol 2021-11 Yes 40mg QD Take [address] [facility] e 2-24 by mouth [facility]ukes (PROTONIX) 00:00: every Medica l 40 MG 00 morning. [place] tablet sertraline 2021-11 Yes 100mg QD Take [address] (ZOLOFT) 1-25 mg by [facility]ukes 100 MG 00:00: mouth Medical tablet 00 daily . [place] sertraline 2021-11 Yes 100mg QD Take [address] (ZOLOFT) 1-25 mg by [facility]ukes 100 MG 00:00: mouth Medical tablet 00 daily . [place] QUEtiapine 2021-11 Yes 125mg QD Take [address] (SEROquel) 1-20 mg by Lukes 25 MG 00:00: mouth Medical tablet 00 nightly . [place] QUEtiapine 2021- Yes 125mg QD Take [address] (SEROquel) 1-20 mg by Lukes 25 MG 00:00: mouth Medical tablet 00 nightly . [place] levomefolat 2019-0 Yes Take by Uni vers e-algal oil 8-21 mouth. ity of (DEPLIN, 18:58: [place] ALGAL OIL,) Medical 1590.314 Branch mg Cap levomefolat 2018-0 Yes Take by Uni vers e-algal oil 8-21 mouth. ity of (DEPLIN, 18:58: [place] ALGAL OIL,) 16 Medical .314 Branch mg Cap levomefolat 2018-0 Yes Take by Uni vers e-algal oil 8-21 mouth. ity of (DEPLIN, 18:58: [place] ALGAL OIL,) Medical .314 Branch mg Cap levomefolat 2018-0 Yes Take by Uni vers e-algal oil 8-21 mouth. ity of (DEPLIN, 18:58: [place] ALGAL OIL,) 16 Medical .314 Branch mg Cap levomefolat 2018-0 Yes Take by Uni vers e-algal oil 8-21 mouth. ity of (DEPLIN, 18:58: [place] ALGAL OIL,) 16 Medical .314 Branch mg Cap levomefolat 2018-0 Yes Take by Uni vers e-algal oil 8-21 mouth. ity of (DEPLIN, 18:58: [place] ALGAL OIL,) 16 Medical .314 Branch mg Cap levomefolat 2018-0 Yes Take by Uni vers e-algal oil 8-21 mouth. ity of (DEPLIN, 18:58: [place] ALGAL OIL,) 16 Medical .314 Branch mg Cap levomefolat 2019-0 Yes Take by Uni vers e-algal oil 8-21 mouth. ity of (DEPLIN, 18:58: [place] ALGAL OIL,) 16 Medical 1590.314 Branch mg Cap levomefolat 2019-0 Yes Take by Uni vers e-algal oil 8-21 mouth. ity of (DEPLIN, 18:58: [place] ALGAL OIL,) 16 Medical .314 Branch mg Cap levomefolat 2019-0 Yes Take by Uni vers e-algal oil 8-21 mouth. ity of (DEPLIN, 18:58: [place] ALGAL OIL,) 16 Medical 15-90.314 Branch mg Cap levomefolat 2019-0 Yes Take by Uni vers e-algal oil 8-21 mouth. ity of (DEPLIN, 18:58: [place] ALGAL OIL,) 16 Medical 1590.314 Branch mg Cap levomefolat Yes Take by Uni vers e-algal oil 8-21 mouth. ity of (DEPLIN, 13:58: [place] ALGAL OIL,) 16 Medical 15.314 Branch mg Cap levomefolat 2019 Yes Take by Uni vers e-algal oil 8-21 mouth. ity of (DEPLIN, 13:58: [place] ALGAL OIL,) 16 Medical 15.314 Branch mg Cap Diclofenac Diclofenac Yes MICHAEL APPLY 4 [facility] Sodium 1 % Sodium 1 % 1-25 FOX M.D. GRAMS [facility] Transdermal Transdermal 00:00: TOPICALLY ans [...] [facility] roquine 2-26 lupus mg by [facility] (PLAQUENIL) 13:19: erythematos mouth 2 Medical 200 [...] 13:19: erythematos daily. Me dical tablet 38 us Center BELIMUMAB 0 Yes systemic Inject [facility] (BENLYSTA 2-26 lupus intravenou Addis es IV) 13:19: erythematos sly every M edical 38 us 30 Center (thirty) days. levothyroxi Yes hypothyroid 50ug Take [address] ne 2-26 ism mcg by Lukes (SYNTHROID, 13:19: mouth Medic al LEVOTHROID) 38 Every Center 50 MCG morning on tablet an empty stomach. sertraline Yes major 100mg QD Take [address] (ZOLOFT) 25 2-26 depressive mg by L ukes MG tablet 13:19: disorder mouth Med ical 38 daily. Center QUEtiapine 0 Yes 100mg QD Take [address] (SEROQUEL) 2-26 mg by Lukes 100 MG 13:19: mouth Medical tablet 38 nightly. Center C,E,ZINC,CO 2018-0 Yes 1{tbl} QD Take [address] PPER 2-26 tablet by Lukes 11/[id number]/ 13:19: mouth Medic al LUT 38 daily. Center (OCUVITE ADULT 50+ ORAL) omega-3 2017-0 Yes 1g QD Take [address] fatty acids 2-26 by mouth Luke s (OMEGA 3) 13:19: daily. Medica l 1,000 mg 38 Center Cap cyanocobala 0 Yes 1{tbl} QD Place [address] min-cobamam 2-26 tablet [facility]man (B12) 13:19: under the Med ical 5,000-100 38 tongue Center mcg Lozg daily. cholecalcif Yes vitamin D 1000U QD Take 1,[address] gomez, 2-26 deficiency Units by Luke s vitamin D3, 13:19: mouth Medic al (VITAMIN 38 daily. Center D3) 1,000 unit capsule levomefolat 2017-0 Yes 1{tbl} QD Take [address] e-algal oil 2-26 tablet by Addis es (DEPLIN, 13:19: mouth Medical ALGAL OIL,) 38 daily. Center 7.5-90.314 mg Cap traMADol 2017-0 Yes 50mg Take [address] (ULTRAM) 50 2-26 by mouth Luke s mg tablet 13:19: every 6 Medic al 38 (six) Center hours as needed for Pain. cyclobenzap 2017-0 Yes 10mg Take [address] [...] once Hospi ta tablet 00 daily. l sertraline 2016-11 Yes 100mg QD Take 100 Me thodi (ZOLOFT) 1-[address] 100 MG 00:00: mouth once Hospi ta tablet 00 daily. l LYRICA 100 2016-11 Yes 100mg Q.5D Take 100 Me thodi mg capsule 0-[address] 00:00: mouth 2 Hospita 00 (two) l times a day. LYRICA 100 2016-11 Yes 100mg Q.5D Take [...] DAY FOR A TOTAL OF 6 DAYS methylPREDN 2016-11 Yes TAKE 6 Meth ulysses ISolone 0-[address] (MEDROL 00:00: DAY 1 Hospit a DOSEPAK) 4 00 DIRECTED l mg tablet ON PACKAGE AND DECREASE BY 1 TAB EACH DAY FOR A TOTAL OF 6 DAYS cyclobenzap 2016-11 Yes 10mg [id number] Take 10 mg Methodi rine 0-20 [id number] mouth [address] (FLEXERIL) 00:00: 3D (three) Hosp kodi 10 mg 00 times a l tablet day as needed. traMADol 2016-11 Yes 50mg Q.5D Take 50 mg Met hodi (ULTRAM) 50 0-[address] mg tablet 00:00: (two) Hospita 00 times a l day as needed. for pain traMADol 2016-11 Yes 50mg Q.5D Take 50 mg Met hodi (ULTRAM) 50 0-[address] mg tablet 00:00: (two) Hospita 00 times a l day as needed. for pain cyclobenzap 2017- Yes 10mg [id number] Take 10 mg Methodi rine 0-20 [id number] by mouth [address] (FLEXERIL) 00:00: 3D (three) Hosp [facility] 10 mg 00 times a l tablet day as needed. hydroxychlo 2016-11 Yes 200mg Q.5D Take 200 M ethodi roquine 0-[address] (PLAQUENIL) 00:00: mouth 2 [facility] 200 mg 00 (two) l tablet times a day. hydroxychlo 2016-11 Yes 200mg Q.5D Take 200 M ethodi roquine 0-[address] (PLAQUENIL) 00:00: mouth 2 [facility] 200 mg 00 (two) l tablet times a day. levothyroxi Yes 50ug QD Take 50 Met hodi ne 9-[address] (SYNTHROID, 00:00: mouth once Hospita LEVOXYL) 50 00 daily. l mcg tablet VESICARE 5 Yes 5mg QD Take 5 mg [facility] mg tablet 9-[address] 00:00: once Hospita 00 daily. l VESICARE 5 2017-0 Yes 5mg QD Take 5 mg [facility] mg tablet 9-[address] 00:00: once Hospita 00 daily. l levothyroxi 2016- Yes 50ug QD Take 50 Met hodi ne 9-[address] (SYNTHROID, 00:00: mouth once Hospita LEVOXYL) 50 00 daily. l mcg tablet QUEtiapine 2016- Yes 100mg QD Take 100 Me thodi (SEROquel) 9-[address] 100 MG 00:00: mouth Hospita tablet 00 nightly. l QUEtiapine 2017-0 Yes 100mg QD Take 100 Me thodi (SEROquel) 9-[address] 100 MG 00:00: mouth Hospita tablet 00 nightly. l PREGABALIN 2016- Yes Take by [facility] ers (LYRICA 4-06 mouth. ity of ORAL) 15:53: [address] CYCLOSPORIN 2016- Yes Place in [facility] (RESTASIS 4-06 each eye. ity of OPHTHALMIC) 15:53: [address] PREGABALIN 2016- Yes Take by [facility] ers (LYRICA 4-06 mouth. ity of ORAL) 15:53: [place] [address] Medical Branch CYCLOSPORIN 2017-[address] [place] (RESTASIS 4-06 each eye. ity of OPHTHALMIC) 15:53: [place] [address] Medical Branch PREGABALIN 2017-0 Yes Take by Univ ers (LYRICA 4-06 mouth. ity of ORAL) 15:53: [place] [address] [facility] Branch CYCLOSPORIN 2017-[address] in [place] (RESTASIS 4-06 each eye. ity of OPHTHALMIC) 15:53: [place] [address] [facility] Branch PREGABALIN 2017-0 Yes Take by Univ ers (LYRICA 4-06 mouth. ity of ORAL) 15:53: [place] [address] [facility] Branch CYCLOSPORIN 2017-[address] in [place] (RESTASIS 4-06 each eye. ity of OPHTHALMIC) 15:53: [place] [address] [facility] Branch PREGABALIN 2017-0 Yes Take by Univ ers (LYRICA 4-06 mouth. ity of ORAL) 15:53: [place] [address] [facility] Branch CYCLOSPORIN 2017-[address] in [place] (RESTASIS 4-06 each eye. ity of OPHTHALMIC) 15:53: [place] [address] [facility] Branch PREGABALIN 2017-0 Yes Take by Univ ers (LYRICA 4-06 mouth. ity of ORAL) 15:53: [place] [address] [facility] Branch CYCLOSPORIN 2017-[address] in [place] (RESTASIS 4-06 each eye. ity of OPHTHALMIC) 15:53: [place] [address] [facility] Branch PREGABALIN 2017-0 Yes Take by Univ ers (LYRICA 4-06 mouth. ity of ORAL) 15:53: [place] [address] [facility] Branch CYCLOSPORIN 2017-[address] in [place] (RESTASIS 4-06 each eye. ity of OPHTHALMIC) 15:53: [place] [address] [facility] Branch PREGABALIN 2017-0 Yes Take by Univ ers (LYRICA 4-06 mouth. ity of ORAL) 15:53: [place] [address] [facility] Branch CYCLOSPORIN 2017-[address] in [place] (RESTASIS 4-06 each eye. ity of OPHTHALMIC) 15:53: [place] [address] [facility] Branch PREGABALIN 2017-0 Yes Take by Univ ers (LYRICA 4-06 mouth. ity of ORAL) 15:53: [place] [address] [facility] Branch CYCLOSPORIN 2017-[address] in [place] (RESTASIS 4-06 each eye. ity of OPHTHALMIC) 15:53: [place] [address] [facility] Branch PREGABALIN 2017-0 Yes Take by Univ ers (LYRICA 4-06 mouth. ity of ORAL) 15:53: [place] [address] [facility] Branch CYCLOSPORIN 2017-[address] in [place] (RESTASIS 4-06 each eye. ity of OPHTHALMIC) 15:53: [place] [address] [facility] Branch PREGABALIN 2017-0 Yes Take by Univ ers (LYRICA 4-06 mouth. ity of ORAL) 15:53: [place] [address] [facility] Branch CYCLOSPORIN 2017-[address] in [place] (RESTASIS 4-06 each eye. ity of OPHTHALMIC) 15:53: [place] [address] [facility] Branch PREGABALIN 2017-0 Yes Take by Univ ers (LYRICA 4-06 mouth. ity of ORAL) 10:53: [place] [address] [facility] Branch CYCLOSPORIN 2017-[address] in [place] (RESTASIS 4-06 each eye. ity of OPHTHALMIC) 10:53: [place] [address] [facility] Branch PREGABALIN 2017-0 Yes Take by Univ ers (LYRICA 4-06 mouth. ity of ORAL) 10:53: [place] [address] [facility] Branch CYCLOSPORIN 2017-[address] in [place] (RESTASIS 4-06 each eye. ity of OPHTHALMIC) 10:53: [address] Branch predniSONE 2017-0 Yes 5mg Take 5 mg [place] 5 mg tablet 3-31 by mouth ity of 00:00: daily. [facility] predniSONE 2017-0 Yes 5mg Take 5 mg [place] 5 mg tablet 3-31 by mouth ity of 00:00: daily. [facility] predniSONE 2017-0 Yes 5mg Take 5 mg [place] 5 mg tablet 3-31 by mouth ity of 00:00: daily. [facility] predniSONE 2017-0 Yes 5mg Take 5 mg [place] 5 mg tablet 3-31 by mouth ity of 00:00: daily. [facility] predniSONE 2017-0 Yes 5mg Take 5 mg [place] 5 mg tablet 3-31 by mouth ity of 00:00: daily. [facility] predniSONE 2017-0 Yes 5mg Take 5 mg [place] 5 mg tablet 3-31 by mouth ity of 00:00: daily. [facility] predniSONE 2017-0 Yes 5mg Take 1 Unive rs 5 mg tablet 3-31 tablet by ity of 00:00: mouth in [place] the morning. Branch predniSONE 2017-0 Yes 5mg Take 1 Unive rs 5 mg tablet 3-31 tablet by ity of 00:00: mouth in [place] the morning. Branch predniSONE 2017-0 Yes 5mg Take 5 mg [place] 5 mg tablet 3-31 by mouth ity of 00:00: daily. [place] [facility] predniSONE 2017-0 Yes 5mg Take 1 Unive rs 5 mg tablet 3-31 tablet by ity of 00:00: mouth in [place] the morning. Branch predniSONE 2017-0 Yes 5mg Take 5 mg [place] 5 mg tablet 3-31 by mouth ity of 00:00: daily. [place] [facility] predniSONE 2017-0 Yes 5mg Take 5 mg [place] 5 mg tablet 3-31 by mouth ity of 00:00: daily. [place] [facility] predniSONE 2017-0 Yes 5mg Take 5 mg [place] 5 mg tablet 3-31 by mouth ity of 00:00: daily. [place] [facility] predniSONE 2017-0 Yes 5mg Take 5 mg [place] 5 mg tablet 3-31 by mouth ity of 00:00: daily. [place] [facility] predniSONE 2017-0 Yes 5mg Take 5 mg [place] 5 mg tablet 3-31 by mouth ity of 00:00: daily. [place] [facility] predniSONE 2017-0 Yes 5mg Take 5 mg [place] 5 mg tablet 3-31 by mouth ity of 00:00: daily. [place] [address] Medical Branch traMADOL 50 2016- Yes TAKE 1 Univ ers mg tablet 3-20 TABLET BY ity o f 00:00: MOUTH [place] [address] TWICE A Medical DAY Branch NEEDED FOR PAIN QUEtiapine Yes TAKE 1 Unive rs 100 mg 3-20 TABLET BY ity of tablet 00:00: MOUTH AT [place] 00 BEDTIME Medical Branch hydroxychlo 2016- Yes TAKE 1 Univ ers roquine 200 3-20 TABLET BY ity of mg tablet 00:00: MOUTH [place] [address] EVERY DAY Medical Branch DIRECTED traMADOL 50 2016- Yes TAKE 1 Univ ers mg tablet 3-20 TABLET BY ity o f 00:00: MOUTH [place] [address] TWICE A Medical DAY Branch NEEDED FOR PAIN QUEtiapine 2016- Yes TAKE 1 Unive rs 100 mg 3-20 TABLET BY ity of tablet 00:00: MOUTH AT [place] BEDTIME Medical Branch QUEtiapine 2017 Yes TAKE 1 Unive rs 100 mg 3-20 TABLET BY ity of tablet 00:00: MOUTH AT [place] BEDTIME Medical Branch hydroxychlo Yes TAKE 1 Univ ers roquine 200 3-20 TABLET BY ity of mg tablet 00:00: MOUTH [place] EVERY DAY Medical Branch DIRECTED traMADOL 50 Yes TAKE 1 Univ ers mg tablet 3-20 TABLET BY ity o f 00:00: MOUTH [place] TWICE A Medical DAY Branch NEEDED FOR PAIN QUEtiapine Yes TAKE 1 Unive rs 100 mg 3-20 TABLET BY ity of tablet 00:00: MOUTH AT [place] BEDTIME Medical Branch hydroxychlo Yes TAKE 1 Univ ers roquine 200 3-20 TABLET BY ity of mg tablet 00:00: MOUTH [place] EVERY DAY Medical Branch DIRECTED hydroxychlo Yes TAKE 1 Univ ers roquine 200 3-20 TABLET BY ity of mg tablet 00:00: MOUTH [place] EVERY DAY Medical Branch DIRECTED traMADOL 50 Yes TAKE 1 Univ ers mg tablet 3-20 TABLET BY ity o f 00:00: MOUTH [place] TWICE A Medical DAY Branch NEEDED FOR PAIN QUEtiapine Yes TAKE 1 Unive rs 100 mg 3-20 TABLET BY ity of tablet 00:00: [facility] AT [place] BEDTIME Medical Branch hydroxychlo Yes TAKE 1 Univ ers roquine 200 3-20 TABLET BY ity of mg tablet 00:00: [facility] EVERY DAY Medical Branch DIRECTED traMADOL 50 Yes TAKE 1 Univ ers mg tablet 3-20 TABLET BY ity o f 00:00: MOUTH [place] TWICE A Medical DAY Branch NEEDED FOR PAIN QUEtiapine Yes TAKE 1 Unive rs 100 mg 3-20 TABLET BY ity of tablet 00:00: MOUTH AT [place] BEDTIME Medical Branch hydroxychlo Yes TAKE 1 Univ ers roquine 200 3-20 TABLET BY ity of mg tablet 00:00: MOUTH [place] EVERY DAY Medical Branch DIRECTED traMADOL 50 Yes TAKE 1 Univ ers mg tablet 3-20 TABLET BY ity o f 00:00: MOUTH [place] TWICE A Medical DAY Branch NEEDED FOR PAIN QUEtiapine 2017-0 Yes 200mg Take 2 Univ ers 100 mg 3-20 tablets by ity of tablet 00:00: mouth in [place] the Medical morning. Branch hydroxychlo 2017- Yes 400mg Take 2 Uni vers roquine 200 3-20 tablets by it y of mg tablet 00:00: mouth in [facility] the Medical morning. Branch traMADOL 50 Yes TAKE 1 Univ ers mg tablet 3-20 TABLET BY ity o f 00:00: MOUTH TWICE A Medical DAY Branch NEEDED FOR PAIN traMADOL 50 Yes TAKE 1 Univ ers mg tablet 3-20 TABLET BY ity o f 00:00: MOUTH TWICE A Medical DAY Branch NEEDED FOR PAIN QUEtiapine 2016- Yes 200mg Take 2 Univ ers 100 mg 3-20 tablets by ity of tablet 00:00: mouth in [place] the Medical morning. Branch hydroxychlo 2016- Yes 400mg Take 2 Uni vers roquine 200 3-20 tablets by it y of mg tablet 00:00: mouth in [facility] the Medical morning. Branch traMADOL 50 Yes TAKE 1 Univ ers mg tablet 3-20 TABLET BY ity o f 00:00: MOUTH TWICE A Medical DAY Branch NEEDED FOR PAIN QUEtiapine Yes 200mg Take 2 Univ ers 100 mg 3-20 tablets by ity of tablet 00:00: mouth in [place] the Medical morning. Branch QUEtiapine Yes TAKE 1 Unive rs 100 mg 3-20 TABLET BY ity of tablet 00:00: MOUTH AT [place] BEDTIME Medical Branch hydroxychlo 2017-0 Yes 400mg Take 2 Uni vers roquine 200 3-20 tablets by it y of mg tablet 00:00: mouth in [facility] the Medical morning. Branch hydroxychlo 2016- Yes TAKE 1 Univ ers roquine 200 3-20 TABLET BY ity of mg tablet 00:00: MOUTH [place] 00 EVERY DAY Medical Branch DIRECTED traMADOL 50 Yes TAKE 1 Univ ers mg tablet 3-20 TABLET BY ity o f 00:00: MOUTH [place] TWICE A Medical DAY Branch NEEDED FOR PAIN QUEtiapine 2016- Yes TAKE 1 Unive rs 100 mg 3-20 TABLET BY ity of tablet 00:00: MOUTH AT [place] 00 BEDTIME Medical Branch hydroxychlo Yes TAKE 1 Univ ers roquine 200 3-20 TABLET BY ity of mg tablet 00:00: MOUTH EVERY DAY Medical Branch DIRECTED traMADOL 50 Yes TAKE 1 Univ ers mg tablet 3-20 TABLET BY ity o f 00:00: MOUTH TWICE A Medical DAY Branch NEEDED FOR PAIN QUEtiapine Yes TAKE 1 Unive rs 100 mg 3-20 TABLET BY ity of tablet 00:00: MOUTH AT [place] BEDTIME Medical Branch hydroxychlo Yes TAKE 1 Univ ers roquine 200 3-20 TABLET BY ity of mg tablet 00:00: MOUTH [place] EVERY DAY Medical Branch DIRECTED traMADOL 50 Yes TAKE 1 Univ ers mg tablet 3-20 TABLET BY ity o f 00:00: MOUTH TWICE A Medical DAY Branch NEEDED FOR PAIN QUEtiapine Yes TAKE 1 Unive rs 100 mg 3-20 TABLET BY ity of tablet 00:00: MOUTH AT [place] BEDTIME Medical Branch hydroxychlo Yes TAKE 1 Univ ers roquine 200 3-20 TABLET BY ity of mg tablet 00:00: MOUTH [place] EVERY DAY Medical Branch DIRECTED traMADOL 50 Yes TAKE 1 Univ ers mg tablet 3-20 TABLET BY ity o f 00:00: MOUTH [place] TWICE A Medical DAY Branch NEEDED FOR PAIN QUEtiapine Yes TAKE 1 Unive rs 100 mg 3-20 TABLET BY ity of tablet 00:00: MOUTH AT [place] BEDTIME Medical Branch hydroxychlo Yes TAKE 1 Univ ers roquine 200 3-20 TABLET BY ity of mg tablet 00:00: MOUTH [place] EVERY DAY Medical Branch DIRECTED traMADOL 50 Yes TAKE 1 Univ ers mg tablet 3-20 TABLET BY ity o f 00:00: MOUTH [place] TWICE A Medical DAY Branch NEEDED FOR PAIN QUEtiapine Yes TAKE 1 Unive rs 100 mg 3-20 TABLET BY ity of tablet 00:00: MOUTH AT [place] BEDTIME Medical Branch hydroxychlo Yes TAKE 1 Univ ers roquine 200 3-20 TABLET BY ity of mg tablet 00:00: MOUTH [place] EVERY DAY Medical Branch DIRECTED traMADOL 50 Yes TAKE 1 Univ ers mg tablet 3-20 TABLET BY ity o f 00:00: MOUTH 00 TWICE A Medical DAY Branch NEEDED FOR PAIN traMADOL 50 Yes TAKE 1 Univ ers mg tablet 3-20 TABLET BY ity o f 00:00: MOUTH 00 TWICE A Medical DAY Branch NEEDED FOR PAIN QUEtiapine Yes TAKE 1 Unive rs 100 mg 3-20 TABLET BY ity of tablet 00:00: MOUTH AT [place] 00 BEDTIME Medical Branch hydroxychlo Yes TAKE 1 Univ ers roquine 200 3-20 TABLET BY ity of mg tablet 00:00: MOUTH 00 EVERY DAY Medical Branch DIRECTED SERTraline [...] mouth [place] 00 daily. Medical Branch levothyroxi 2017-0 Yes 50ug Take 50 Uni vers ne 50 mcg 3-07 mcg by ity of tablet 00:00: mouth [place] 00 daily. Medical Branch SERTraline 2017-0 Yes 100mg Take 1 Univ ers 100 mg 3-07 tablet by ity of tablet 00:00: mouth in [place] 00 the Medical morning. Branch levothyroxi 2017-0 Yes 50ug Take 1 Univ ers ne 50 mcg 3-07 tablet by ity o f tablet 00:00: mouth in [place] 00 the Medical morning. Branch SERTraline 2017-0 Yes 100mg Take 1 Univ ers 100 mg 3-07 tablet by ity of tablet 00:00: mouth in [place] 00 the Medical morning. Branch levothyroxi 2017-0 Yes 50ug Take 1 Univ ers ne 50 mcg 3-07 tablet by ity o f tablet 00:00: mouth in [place] 00 the Medical morning. Branch SERTraline 2017-0 Yes 100mg Take 100 [place] 100 mg 3-07 mg by ity of tablet 00:00: mouth [place] 00 daily. Medical Branch SERTraline 2017-0 Yes 100mg Take 1 Univ ers 100 mg 3-07 tablet by ity of tablet 00:00: mouth in [place] 00 the Medical morning. Branch levothyroxi 2017-0 Yes 50ug Take 1 Univ ers ne 50 mcg 3-07 tablet by ity o f tablet 00:00: mouth in [place] 00 the Medical morning. Branch levothyroxi 2017-0 Yes 50ug Take 50 Uni vers ne 50 mcg 3-07 mcg by ity of tablet 00:00: mouth [place] 00 daily. Medical Branch SERTraline 2017-0 Yes 100mg Take 100 [place] 100 mg 3-07 mg by ity of tablet 00:00: mouth [place] 00 daily. Medical Branch levothyroxi 2017-0 Yes 50ug Take 50 Uni vers ne 50 mcg 3-07 mcg by ity of tablet 00:00: mouth [place] 00 daily. Medical Branch SERTraline 2017-0 Yes 100mg Take 100 [place] 100 mg 3-07 mg by ity of tablet 00:00: mouth [place] 00 daily. Medical Branch levothyroxi 2017-0 Yes 50ug Take 50 Uni vers ne 50 mcg 3-07 mcg by ity of tablet 00:00: mouth [place] 00 daily. Medical Branch SERTraline 2016-0 Yes 100mg Take 100 [place] 100 mg 3-07 mg by ity of tablet 00:00: mouth 00 daily. Medical Branch levothyroxi 0 Yes 50ug Take 50 Uni vers ne 50 mcg 3-07 mcg by ity of tablet 00:00: mouth 00 daily. Medical Branch SERTraline 0 Yes 100mg Take 100 [place] 100 mg 3-07 mg by ity of tablet 00:00: mouth 00 daily. Medical Branch levothyroxi 0 Yes 50ug Take 50 Uni vers ne 50 mcg 3-07 mcg by ity of tablet 00:00: mouth 00 daily. Medical Branch SERTraline 0 Yes 100mg Take 100 [place] 100 mg 3-07 mg by ity of tablet 00:00: mouth 00 daily. Medical Branch levothyroxi 0 Yes 50ug Take 50 Uni vers ne 50 mcg 3-07 mcg by ity of tablet 00:00: mouth 00 daily. Medical Branch SERTraline 0 Yes 100mg Take 100 [place] 100 mg 3-07 mg by ity of tablet 00:00: mouth 00 daily. Medical Branch levothyroxi 0 Yes 50ug Take 50 Uni vers ne 50 mcg 3-07 mcg by ity of tablet 00:00: mouth 00 daily. [facility] Immunizations Ordered Filled Immunization Date Status Comments [facility] e Immunization Name Name Influenza High Dose 2017-12-05 Completed [facility] 00:00:00 [facility] IM ([id number]) Influenza High Dose 2017-12-05 Completed [facility] Pres[facility] Free 00:00:00 [facility] IM ([id number]) Influenza High Dose Unknown Completed [facility] Preservative Free [facility] IM ([id number]) Vital Signs Vital Name Observation Time Observation Value Comments Source Systolic blood 2023-05-18 19:55:00 140 mm[Hg[facility] 2023-05-18 19:55:00 90 mm[Hg] Unive [facility] Heart rate 2023-05-18 19:54:00 88 /min [facility] Body temperature 2023-05-18 19:54:00 36 [facility] 2023-05-18 19:54:00 18 /min Univ ers[facility] Body height 2023-05-18 19:54:00 157.5 cm Universi ty [facility] Body weight 2023-05-18 19:54:00 115.214 kg [facility] BMI 2023-05-18 19:54:00 46.46 kg/m2 [facility] Oxygen saturation in 2023-05-18 19:54:00 96 /min [facility] Arterial blood by [facility] Pulse oximetry Branch HEIGHT 2022-12-16 13:38:00 157.5 cm WEIGHT 2022-12-16 11:04:00 123.288 kg WEIGHT 2022-12-14 16:44:00 128.595 kg HEIGHT 2022-12-16 13:38:00 157.5 cm WEIGHT 2022-12-16 11:04:00 123.288 kg WEIGHT 2022-12-14 16:44:00 128.595 kg HEIGHT 2022-12-16 13:38:00 157.5 cm WEIGHT 2022-12-16 11:04:00 123.288 kg WEIGHT 2022-12-14 16:44:00 128.595 kg Systolic blood 2019-07-06 18:54:00 137 mm[Hg] Univer sity of [facility] Diastolic blood 2019-07-06 18:54:00 79 mm[Hg] Unive rsity of pressure [facility] Heart rate 2019-07-06 18:54:00 92 /min [facility]i ty [facility] Body height 2019-07-06 18:54:00 157.5 cm Universi ty [facility] Body weight 2019-07-06 18:54:00 131.543 kg Universi ty of [facility] Branch BMI 2019-07-06 18:54:00 53.04 kg/m2 Universi ty of [facility] Systolic blood 2019-07-06 18:54:00 137 mm[Hg] Univer sity of pressure [facility] Diastolic blood 2019-07-06 18:54:00 79 mm[Hg] Unive rsity of pressure [facility] Heart rate 2019-07-06 18:54:00 92 /min Universi ty of [facility] Body height 2019-07-06 18:54:00 157.5 cm [facility] Body weight 2019-07-06 18:54:00 131.543 kg [facility] BMI 2019-07-06 18:54:00 53.04 kg/m2 [facility] Heart rate 2022-12-25 15:49:38 75 /min [facility] Respiratory rate 2022-12-25 15:49:38 20 /min [facility] Oxygen saturation in 2022-12-25 15:49:38 95 /min [facility] Arterial blood by Medical Ce nter Pulse oximetry Body temperature 2022-12-25 15:49:31 36.78 Anitha [facility] Systolic blood 2022-12-25 15:48:45 148 mm[Hg] [facility] Diastolic blood 2022-12-25 15:48:45 54 mm[Hg] [facility] Systolic blood 2022-12-22 11:42:00 145 mm[Hg] [facility] Diastolic blood 2022-12-22 11:42:00 60 mm[Hg] [facility] Heart rate 2022-12-22 11:42:00 66 /min [facility] Body temperature 2022-12-22 11:42:00 36.83 Anitha [facility] Respiratory rate 2022-12-22 11:42:00 19 /min [facility] Oxygen saturation in 2022-12-22 11:42:00 97 /min [facility] Arterial blood by Medical Ce nter Pulse oximetry Body height 2022-12-16 13:38:00 157.5 cm [facility] Body weight 2022-12-16 11:04:00 123.288 kg [facility] BMI 2022-12-16 11:04:00 49.71 kg/m2 [facility] Height 2018-12-10 12:28:00 61 [in_us] [facility] Weight 2018-12-10 12:28:00 286 [lb_av] [facility] Body Mass Index 2018-12-10 12:28:00 54.04 kg/m2 [facility] Calculated Procedures Procedure Date / Time Performing Clinician Source Performed URINALYSIS MICROSCOPIC 2023-05-18 20:44:00 Hyacinth Rodriguez [facility] POCT URINALYSIS AUTO 2023-05-18 20:12:00 Hyacinth Rodriguez [facility] [place] [facility] ASSIGNMENT OF BENEFITS 2023-05-18 19:30:03 Doctor Unassigned, No [facility] REFERRAL- 2023-04-28 05:01:00 Doctor Unassigned, No [facility] REQUEST/RESPONSE [facility] COMPREHENSIVE METABOLIC 2022-12-25 03:22:00 NalamMeenua I [facility] PANEL Center CBC W/PLT COUNT & AUTO 2022-12-25 03:22:00 Nalam[facility] DIFFERENTIAL Center CBC W/PLT COUNT & AUTO 2022-12-25 03:22:00 [facility] DIFFERENTIAL Center HEMOGLOBIN AND HEMATOCRIT 2022-12-22 04:29:00 Nae Cortes [facility] SARS-COV2/RT-PCR ([facility] & 2022-12-21 05:25:00 Jens Brewer [facility] REF LABS) [facility] BASIC METABOLIC PANEL 2022-12-21 05:21:00 SnAwilda gan [facility] CBC (HEMOGRAM ONLY) 2022-12-21 05:21:00 Awilda Thornton [facility] MAGNESIUM 2022-12-21 05:21:00 Awilda Thornton [facility] PHOSPHORUS 2022-12-21 05:21:00 SnAwlida gan [facility] BASIC METABOLIC PANEL 2022-12-20 05:46:00 Awilda Thornton [facility] CBC (HEMOGRAM ONLY) 2022-12-20 05:46:00 Awilda Thornton [facility] BASIC METABOLIC PANEL 2022-12-19 03:45:00 Awilda Thornton [facility] CBC (HEMOGRAM ONLY) 2022-12-19 03:45:00 SnitAwilda mello [facility] MAGNESIUM 2022-12-19 03:45:00 Snitman Awilda [facility] PHOSPHORUS 2022-12-19 03:45:00 Snitriaz [facility] HEPATIC FUNCTION PANEL 2022-12-19 03:45:00 Snitriaz [facility] CBC (HEMOGRAM ONLY) 2022-12-18 03:11:00 Jeff Lilly [facility] BASIC METABOLIC PANEL 2022-12-18 03:11:00 Jeff Lilly [facility] TISSUE EXAM 2022-12-17 15:40:00 Winter Henderson [facility] CHOLECYSTECTOMY, 2022-12-17 12:49:[address] [facility] LAPAROSCOPIC, WITH Center CHOLANGIOGRAM ECG 12-LEAD 2022-12-17 11:30:20 John Moncada [facility] CBC (HEMOGRAM ONLY) 2022-12-17 03:26:00 Jeff Verjolynn [facility] BASIC METABOLIC PANEL 2022-12-17 03:26:00 Jeff Verjolynn [facility] TYPE AND SCREEN, 2022-12-17 03:26:00 Marlo Hernandez [facility] STRESS ECHO WITH CONTRAST 2022-12-16 13:47:56 CellJuan Ramon moscoso [facility] & TRACING [facility] STRESS ECHO WITH CONTRAST 2022-12-16 13:47:56 Celli Juan Ramon [facility] & TRACING [facility] CBC (HEMOGRAM ONLY) 2022-12-16 03:26:00 Jeff Verjolynn [facility] BASIC METABOLIC PANEL 2022-12-16 03:26:00 Jeff Verjolynn [facility] HEPATIC FUNCTION PANEL 2022-12-16 03:26:00 Jeannie Dsouza [facility] REPORT OF PROCEDURE - 2022-12-15 12:30:04 Pablito Parrish [facility] ENDOSCOPY URL Center [place] ERCP 2022-12-15 12:21:00 Pablito Parrish [facility] PROCEDURE W/ C-ARM 2022-12-15 11:25:00 Pablito Parrish [facility] ERCP, WITH SPHINCTEROTOMY 2022-12-15 11:25:00 Pablito Parrish [facility] ERCP, WITH BALLOON SWEEP 2022-12-15 11:25:00 Pablito Parrish [facility] OF BILE DUCTS Center CBC (HEMOGRAM ONLY) 2022-12-15 03:34:00 Jens Brewer [facility] BASIC METABOLIC PANEL 2022-12-15 03:34:00 Jens Brewer [facility] PHOSPHORUS 2022-12-15 03:34:00 Jeannie Dsouza [facility] MAGNESIUM 2022-12-15 03:34:00 [facility] PROTHROMBIN TIME/INR 2022-12-15 03:34:00 [facility] Jeannie [facility] HEPATIC FUNCTION PANEL 2022-12-15 03:34:00 [facility] XR ABDOMEN/KUB 1 VIEW 2022-12-14 12:52:00 Rehana Flynn [facility] PORTABLE [place] CTA CHEST FOR PULMONARY 2022-12-14 02:13:00 Jeannie Dsouza [facility] I [facility] EMBOLUS [facility] D-DIMER 2022-12-13 22:49:00 [facility] SARS-COV2/RT-PCR ([facility] & 2022-12-13 21:42:00 Jens Brewer [facility] REF LABS) [facility] CBC W/PLT COUNT & AUTO 2022-12-13 21:40:00 [facility] COMPREHENSIVE METABOLIC 2022-12-13 21:40:00 Jeannie Dsouza CH I [facility] B-TYPE NATRIURETIC FACTOR 2022-12-13 21:40:00 Jeannie Dsouza [facility] (BNP) [facility] MAGNESIUM 2022-12-13 21:40:00 Jeannie Dsouza [facility] PROTHROMBIN TIME/INR 2022-12-13 21:40:00 [facility]ouza [facility] PHOSPHORUS 2022-12-13 21:40:00 Jeannie Dsouza [facility] LIPASE 2022-12-13 21:40:00 [facility] CBC W/PLT COUNT & AUTO 2022-12-13 21:40:00 [facility] XR CHEST 1 VIEW PORTABLE 2022-12-13 21:27:00 Jeannie Dsouza [facility] / BEDSIDE [facility] REFERRAL- 2019-07-15 05:01:00 Doctor Unassigned, No [facility] REQUEST/RESPONSE Name Medical Branch Plan of Care Planned Activity Planned Date Details Comments Source Future Scheduled 2028-01-[address] [facility] Test 00:00:00 malignant neoplasm of [facility] Center colon (procedure) [code = 282443175] Future Scheduled 2028-01-[address] [facility] Test 00:00:00 malignant ne[facility] colon (procedure) [code = 288696104] Future Scheduled 2028-01-[address] [facility] Test 00:00:00 malignant ne[facility] of [facility] colon (procedure) [code = 468771075] Future Scheduled 2028-01-[address] [facility] Test 00:00:00 malignant neoplasm of [facility] Center colon (procedure) [code = 050078066] Future Scheduled 2023-12-[address] [facility] Test 00:00:00 Counseling [facility] Medical Cente r Screening (12+) [code = Tobacco Cessation Counseling and Screening (12+)] Future Scheduled 2023-12-[address] [facility] Test 00:00:00 [facility]ing [facility] Medical Cente r Screening (12+) [code = Tobacco Cessation Counseling and Screening (12+)] Future Scheduled 2023-07-18 Screening for [facility] Test 18:19:37 malignant neoplasm of colon (procedure) [code = 763576048] Future Scheduled 2023-07-18 Screening for [facility] Test 18:19:37 malignant neoplasm of colon (procedure) [code = 951491456] Future Scheduled 2023-07-18 Screening for [facility] Test 18:19:37 malignant neoplasm of colon (procedure) [code = 059600559] Future Scheduled 2023-07-18 COVID-19 VACCINE (#1) [facility] Test 18:19:37 [code = COVID-19 VACCINE (#1)] Future Scheduled 2023-07-18 BREAST CANCER [facility] Test 18:19:37 SCREENING [code = BREAST CANCER SCREENING] Future Scheduled 2023-07-18 SHINGLES VACCINES (1 Met [facility] Test 18:19:37 of 2) [code = SHINGLES VACCINES (1 of 2)] Future Scheduled 2023-07-18 65+ [facility]OCOCCAL [facility] Test 18:19:37 VACCINE (1 - PCV) [code = 65+ PNEUMOCOCCAL VACCINE (1 - PCV)] Future Scheduled 2023-07-18 INFLUENZA VACCINE (#1) [facility] Test 18:19:37 [code = INFLUENZA VACCINE (#1)] Future Scheduled 2023-07-18 Screening for [facility] Test 18:19:37 malignant neoplasm of colon (procedure) [code = 157117323] Future Scheduled 2023-07-18 Screening for [facility] Test 18:19:37 malignant neoplasm of colon (procedure) [code = 515059734] Future Scheduled 2023-07-17 Influenza Vaccine (#1) [facility] Test 00:00:00 [code = Influenza Medical Ce nter Vaccine (#1)] Future Scheduled 2022-12-10 COVID-19 VACCINE (#1) [facility] Test 23:54:24 [code = COVID-19 VACCINE (#1)] Future Scheduled 2022-12-10 BREAST CANCER [facility] Test 23:54:24 SCREENING [code = BREAST CANCER SCREENING] Future Scheduled 2022-12-10 COLONOSCOPY SCREENING [facility] Test 23:54:24 [code = COLONOSCOPY SCREENING] Future Scheduled 2022-12-10 SHINGLES VACCINES (1 [facility] Test 23:54:24 of 2) [code = SHINGLES VACCINES (1 of 2)] Future Scheduled 2022-12-10 65+ [facility]OCOCCAL [facility] Test 23:54:24 VACCINE (1 - PCV) [code = 65+ PNEUMOCOCCAL VACCINE (1 - PCV)] Future Scheduled 2022-12-10 INFLUENZA VACCINE [facility] Test 23:54:24 [code = INFLUENZA VACCINE] Future Scheduled 2022-11-[address] [facility] Test 00:00:00 (12+) [code = Medical Center DEPRESSION SCREENING (12+)] Future Scheduled 2022-11-16 FALLS RISK SCREENING [facility] Test 00:00:00 [code = FALLS RISK Medical C enter SCREENING] Future Scheduled 2022-11-[address] [facility] Test 00:00:00 (12+) [code = Medical Center DEPRESSION SCREENING (12+)] Future Scheduled 2022-11-16 FALLS RISK SCREENING [facility] Test 00:00:00 [code = FALLS RISK Medical C enter SCREENING] Future Scheduled 2022-07-17 INFLUENZA VACCINE (#1) [facility] Test 00:00:00 [code = INFLUENZA Medical Ce nter VACCINE (#1)] Future Scheduled 2013 PNEUMOCOCCAL 65+ YRS [facility] Test 00:00:00 (1 - PCV) [code = Medical Ce nter PNEUMOCOCCAL 65+ YRS (1 - PCV)] Future Scheduled 2013 PNEUMOCOCCAL 65+ YRS [facility] Test 00:00:00 (1 - PCV) [code = Medical Ce nter PNEUMOCOCCAL 65+ YRS (1 - PCV)] Future Scheduled 1998 SHINGLES VACCINES ([address] [facility] Test 00:00:00 of 2) [code = SHINGLES Medic al Center VACCINES (1 of 2)] Future Scheduled 1998 SHINGLES VACCINES ([address] [facility] Test 00:00:00 of 2) [code = SHINGLES Medic al Center VACCINES (1 of 2)] Future Scheduled 1967 DTAP/TDAP/TD [facility]ACCINES [facility] 00:00:00 (1 - Tdap) [code = Medical C enter DTAP/TDAP/TD VACCINES (1 - Tdap)] Future Scheduled 1967 DTAP/TDAP/TD [facility]ACCINES [facility] Test 00:00:00 (1 - Tdap) [code = Medical C enter DTAP/TDAP/TD VACCINES (1 - Tdap)] Future Scheduled 1966 HEPATITIS C [facility]CRE[facility] 00:00:00 [code = HEPATITIS C Medical Center SCREENING] Future Scheduled 1966 HEPATITIS C [facility] 00:00:00 [code = HEPATITIS C Medical Center SCREENING] Future Scheduled 1948 COVID-19 VACCINE (#1) [facility] 00:00:00 [code = COVID-[address] VACCINE (#1)] Future Scheduled 1948 COVID-19 VACCINE (#1) [facility] 00:00:00 [code = COVID-[address] VACCINE (#1)] Future Scheduled [address] [facility] Test 00:00:00 [facility] breast (procedure) [code = 387961592] Future Scheduled [address] [facility] Test 00:00:00 (combo) [code = CT Medical C enter Colonography (combo)] Future Scheduled 1948 DXA SCAN [code = DXA [facility] Test 00:00:00 SCAN] [facility] Future Scheduled [address] [facility] Test 00:00:00 [facility] (procedure) [code = 578661293] Future Scheduled [address] [facility] Test 00:00:00 [facility] colon (procedure) [code = 927670986] Future Scheduled 1948 Sigmoidoscopy [facility]code = [facility] Future Scheduled [address] [facility] Test 00:00:00 (combo) [code = CT Medical C enter Colonography (combo)] Future Scheduled 1948 DXA SCAN [code = DXA [facility] Test 00:00:00 SCAN] [facility] Future Scheduled [address] [facility] Test 00:00:00 malignant neoplasm of Medica l Center colon (procedure) [code = 692509359] Future Scheduled [address] [facility] Test 00:00:00 malignant neoplasm of Medica l Center colon (procedure) [code = 775575576] Future Scheduled 1948 Sigmoidoscopy [facility]code [facility] 00:[facility] S[facility]oscopy] Medical Cente r Encounters Start End Encounter Admission Attending Care Care Encounter Source Date/Time Date/Time Type Type Clinicians Facility Department ID 2023-07-21 2023-07-21 [facility] [id number] Univers 10:30:00 10:30:00 HYACINTH marvadakotah hernandez [facility] 2023-07-08 2023-07-08 Telephone [facility] 1.2.840.114 [id number] Univers 00:00:00 00:00:00 Hyacinth ALDRIDGE 350.1.13.10 ity [place] [phone] Oh dical NAL [address] [place] [address] 2023-05-18 2023-05-18 Out[facility] [id number] Univers 14:45:00 15:56:32 HYACINTHLUKE hernandez [facility] 2023-05-18 2023-05-18 Office [facility] 1.2.840.114 [id number] Univers 14:45:00 15:56:32 Visit Hyacinth ALDRIDGE 350.1.13.10 [facility] [place] [phone] Oh dical NAL [address] [place] [address] 2023-05-18 2023-05-18 Orders Doctor KEKE 1.2.840.114 [id number] Univers 00:00:00 00:00:00 Only Unassigned, [place]AY[place] 350.1.13.10 ity of Andrew [facility] 4.2.7.2.686 Ken as [phone] [address] 2023-04-29 2023-04-29 Outpatient [facility] [id number] Univers 14:45:00 14:45:00 HYACINTH durhamy o f [facility] 2023-04-28 2023-04-28 Orders Doctor KEKE 1.2.840.114 [id number] Univers 00:00:00 00:00:00 Only Unassigned, [place] 350.1.13.10 ity of Andrew [facility] 4.2.7.2.686 Ken as [phone] [address] 2022-12-13 2022-12-25 Inpatient UR ALISSA, [facility] Surgery [id number] SLE 20:41:00 16:34:00 [facility] 2022-12-13 2022-12-25 Hospital Jeannie Dsouza [facility] [id number] [facility] 20:41:00 16:34:00 Encounter Nae Cortes [facility] 2022-12-17 2022-12-17 Anesthesia Yonny Patel [facility] [id number] 13:04[facility]00 17:50[facility]00 [facility] 2022-12-17 Anesthesia Jorge Yonny [facility] [id number] 13:04:00 17:50:00 Event Jackie [facility] 2022-12-17 2022-12-17 Surgery Santiago [facility] [id number] 10:38:00 14:13:00 [facility] 2022-12-17 2022-12-17 Surgery Santiago [facility] [id number] 10:38:00 14:13:00 [facility] 2022-12-15 2022-12-15 Surgery Francois [facility] [id number] 11:30:00 13:00:00 Pablito Peres [facility] 2022-12-15 2022-12-15 Surgery Francois [facility] [id number] 11:30:00 13:00:00 Pablito Peres [facility] 2022-12-15 2022-12-15 Anesthesia Darryl Ayala [facility] [id number] [facility] 11:25:00 12:32:00 Event Ludwin Jeong [facility] 2022-12-15 2022-12-15 Anesthesia Darryl Ayala [facility] [id number] [facility] 11:25:00 12:32:00 Event AdenikeLudwin esqueda [facility] 2022-12-13 2022-12-13 Travel [facility] [id number] [facility] 00:00:00 00:00:00 [facility] 2022-12-13 2022-12-13 Travel [facility] [id number] [facility] 00:[facility]:00 00:00:00 [facility] 2021-07-18 2021-07-18 Letter KEKE Kearns 1.2.840.114 [id number] Univers 00:00:00 00:00:00 (Out) Brynn VERMA 350.1.13.10 it y of HOSPITAL 4.2.7.2.686 Ken as [phone] [facility] 019 Branch 2021-07-16 2021-07-16 Laboratory Only, Ang Db Test [facility] 1.2.8 40.114 [id number] Univers 15:31:38 15:41:38 Only Aleksey [facility] 350.1.13.10 ity of [place] 4.2.7.2.686 Ken as Ke?Blea [phone] [address] Medical Office Building 2021-07-16 2021-07-16 Outpatient R ALEKSEY [facility] [id number] Univers 15:25:00 15:25:00 LOLY ity [facility] 2019-07-15 2019-07-15 Orders Doctor DAVIES 1.2.840.114 [id number] Univers 00:00:00 00:00:00 Only Unassigned, BAY[place] 350.1.13.10 ity of Andrew [facility] 4.2.7.2.686 Ken as [phone] [facility] 009 Branch 2019-07-15 2019-07-15 Letter [facility] [id number] Univers 00:00:00 00:00:00 (Out) [facility] 350.1.13.10 it y of Surgical 4.2.7.2.686 Ken as Specialti [phone] Oh dical es 198 [facility] 2019-07-15 2019-07-15 Letter Abel [facility] [id number] 00:00:00 00:00:00 (Out) [facility] 350.1.13.10 Surgical 4.2.7.2.686 Specialti [id number] [address] 2019-07-15 2019-07-15 Orders Doctor KEKE 1.2.840.114 [id number] 00:00:00 00:00:00 Only Unassigned, [place] 350.1.13.10 Andrew [facility] 4.2.7.2.686 [id number] [facility] 2019-07-14 2019-07-14 Telephone [facility] 1.2.840.114 [id number] Univers 00:00:00 00:00:00 [place] 350.1.13.10 it y of Surgical 4.2.7.2.686 Ken as Specialti [phone] Oh dical es 198 [facility] 2019-07-14 2019-07-14 Telephone [facility] 1.2.840.114 [id number] 00:00:00 00:00:00 [place] 350.1.13.10 Surgical 4.2.7.2.686 Specialti [phone] [address] 2019-07-12 2019-07-12 Telephone [facility] 1.2.840.114 [id number] Univers 00:00:00 00:00:00 Padilla [place]ridge 350.1.13.10 i ty of [place] [phone] Oh dical nal 044 [facility] 2019-07-12 2019-07-12 Telephone [facility] 1.2.840.114 [id number] 00:00:00 00:00:00 Padilla Aldridge 350.1.13.10 [place] 4.2.7.2.686 Professio [phone] [facility] 044 [facility] 2019-07-06 2019-07-06 Hospital [facility] 1.2.840.114 [id number] Univers 13:56:48 23:59:00 Encounter [place] 350.1.13.10 ity of Surgical 4.2.7.2.686 Ken as Specialti [phone] Me dical es 809 [facility] 2019-07-06 2019-07-06 Office [facility] [id number] Univers 13:48:56 14:58:30 Visit [place] 350.1.13.10 it y of Surgical 4.2.7.2.686 Ken as Specialti [phone] Me dical es 198 [facility] 2019-07-06 2019-07-06 Office [facility] [id number] 13:48:56 14:58:30 Visit [place] 350.1.13.10 Surgical 4.2.7.2.686 Specialti [phone] es [address] [place] [address] 2019-07-06 2019-07-06 Letter [facility] [id number] Univers 00:00:00 00:00:00 (Out) [place] 350.1.13.10 it y of Surgical 4.2.7.2.686 Ken as Specialti [phone] Oh dical es 198 [facility] 2018-12-10 2018-12-10 Appointmen DOMINIQUE, [facility] Orthopedics [id number] [place] 11:00:00 11:00:00 t; MICHAEL FOX M.D. at [facility] dionte RODRIGUEZ M.D. Results Test Description Test Time Test Comments Results Result Comments Source POCT URINALYSIS, INSTRUMENT 2023-05-18 20:14:00 Test Item Value Reference Range Interpretation Comme nts POCT U SP GRAV (test code = 3255) 1.020 mg/dl 1.005-1.025 POCT PH U (test code = 3254) 6.0 mg/dl 5-8 POCT U LEUK EST (test code = 3263) trace Negative - Negative POCT U NIT (test code = 3262) negative Negative - Negative POCT U PROT (test code = 3259) 30 Negative - Negative POCT U GLU (test code = 3256) negative Negative - Negative POCT U KETONE (test code = 3258) trace Negative - Negative POCT U UROBILI (test code = 3260) 0.2 mg/dl 0.2-1 POCT U BILI (test code = 3261) small Negative - Negative POCT U BLD (test code = 3257) negative Negative - Negative POCT U COLOR (test code = 3266) yellow POCT U APPEAR (test code = 3267) clear [facility], [id number] 20:14:00 Test Item Value Reference Range Interpretation Comments POCT U SP GRAV (test code = 1.020 mg/dl 1.005-1.025 3255) POCT PH U (test code = 3254) 6.0 mg/dl 5-8 POCT U LEUK EST (test code = trace Negative - Negative 3263) POCT U NIT (test code = 3262) negative Negative - Negative POCT U PROT (test code = 30 Negative - Negative 3259) POCT U GLU (test code = 3256) negative Negative - Negative POCT U KETONE (test code = trace Negative - Negative 3258) POCT U UROBILI (test code = 0.2 mg/dl 0.2-1 3260) POCT U BILI (test code = small Negative - Negative 3261) POCT U BLD (test code = 3257) negative Negative - Negative POCT U COLOR (test code = yellow 3266) POCT U APPEAR (test code = clear 3267) [facility] [id number] 04:10:27 Test Item Value Reference Range Interpretation Comments TOTAL PROTEIN 5.9 gm/dL 6.0-8.3 L (BEAKER) (test code = 770) ALBUMIN (BEAKER) 3.0 g/dL 3.5-5.0 L (test code = 1145) ALKALINE 122 U/L 40-150 PHOSPHATASE (BEAKER) (test code = 346) BILIRUBIN TOTAL 0.7 mg/dL 0.2-1.2 (BEAKER) (test code = 377) SODIUM (BEAKER) 145 meq/L 136-145 (test code = 381) POTASSIUM (BEAKER) 3.7 meq/L 3.5-5.1 (test code = 379) CHLORIDE (BEAKER) 113 meq/L 98-107 H (test code = 382) CO2 (BEAKER) (test 22 meq/L 22-29 code = 355) BLOOD UREA 9 mg/dL 7-21 NITROGEN (BEAKER) (test code = 354) CREATININE 0.84 mg/dL 0.57-1.25 (BEAKER) (test code = 358) GLUCOSE RANDOM 73 mg/dL 70-105 (BEAKER) (test code = 652) CALCIUM (BEAKER) 9.0 mg/dL 8.4-10.2 (test code = 697) AST (SGOT) 28 U/L 5-34 (BEAKER) (test code = 353) ALT (SGPT) 14 U/L 6-55 (BEAKER) (test code = 347) EGFR (BEAKER) 73 Interpretatio n of eGFR (test code = 1092) mL/min/1.[address] age Description sq m Result G1 Maty l or high >=90 G2 Mildly decreased 60-89 G3a Mildl y to moderately 45-5 9 G3b Moderately to s everely 30-44 G4 Severl y decreased 15-29 G5 Kidne y failure <15Reported eGF R is based on the CKD-EPI 1 equation that d oes not use a race coefficientEsti mated GFR is not as accur ate as Creatinine Peggy zapata in predicting glom erular filtration rate . Estimated GFR is not appl icable for dialysis patien ts Research Assistant Professor ID - MARCOCBC W/PLT COUNT & AUTO [id number] 03:54:41 Test Item Value Reference Range Interpretation Comments WHITE BLOOD CELL COUNT (BEAKER) 8.1 K/ L 3.5-10.5 (test code = 775) RED BLOOD CELL COUNT (BEAKER) 3.46 M/ L 3.93-5.22 L (test code = 761) HEMOGLOBIN (BEAKER) (test code = 10.0 GM/DL 11.2-15.7 L 410) HEMATOCRIT (BEAKER) (test code = 31.8 % 34.1-44.9 L 411) MEAN CORPUSCULAR VOLUME (BEAKER) 92 fL 79-95 (test code = 753) MEAN CORPUSCULAR HEMOGLOBIN 28.9 pg 25.6-32.2 (BEAKER) (test code = 751) MEAN CORPUSCULAR HEMOGLOBIN CONC 31.4 GM/DL 32.2-35.5 L (BEAKER) (test code = 752) RED CELL DISTRIBUTION WIDTH 15.1 % 11.7-14.4 H (BEAKER) (test code = 412) PLATELET COUNT (BEAKER) (test 273 K/CU MM 150-450 code = 756) MEAN PLATELET VOLUME (BEAKER) 11.9 fL 9.4-12.3 (test code = 754) NUCLEATED RED BLOOD CELLS 0 /100 WBC 0-0 (BEAKER) (test code = 413) NEUTROPHILS RELATIVE PERCENT 61 % (BEAKER) (test code = 429) LYMPHOCYTES RELATIVE PERCENT 24 % (BEAKER) (test code = 430) MONOCYTES RELATIVE PERCENT 10 % (BEAKER) (test code = 431) EOSINOPHILS RELATIVE PERCENT 5 % (BEAKER) (test code = 432) BASOPHILS RELATIVE PERCENT 1 % (BEAKER) (test code = 437) NEUTROPHILS ABSOLUTE COUNT 4.94 K/ L 1.56-6.13 (BEAKER) (test code = 670) LYMPHOCYTES ABSOLUTE COUNT 1.95 K/ L 1.18-3.74 (BEAKER) (test code = 414) MONOCYTES ABSOLUTE COUNT (BEAKER) 0.77 K/ L 0.24-0.36 H (test code = 415) EOSINOPHILS ABSOLUTE COUNT 0.37 K/ L 0.04-0.36 H (BEAKER) (test code = 416) BASOPHILS ABSOLUTE COUNT (BEAKER) 0.04 K/ L 0.01-0.08 (test code = 417) IMMATURE GRANULOCYTES-RELATIVE 0.60 % 0.00-1.00 PERCENT (BEAKER) (test code = 2801) Tissue [id number] 19:01:09 Test Item Value Reference Range Interpretation Comments Case Report (test code Surgical Pathology = 104) Report Case: [id number] Authorizing Provider: Winter Henderson MD Collected: 12/17/2022 03:40 PM Ordering Location: [facility] PERIOPERATIVE Received: 12/18/2022 09:02 AM SERVICES Pathologist: Westley Walker MD Specimen: Gallbladder DIAGNOSIS (test code = [id number] 3220) uZzEwMzNcZnRuYmpcdWMxIH tccnRmMVxlcGljOTYwMlxhb kOfNXIodSMtD0KirmemSVsg LE5nRD6dtBetxDHdeZNsMRL uZrCzz4xdg971pHEmq6kgFF UTiugoiJw3vPooH02pl4U2L vfeV98wvKDjLDY9ONNzWDQq uBHvPQWyUCV3AIZhlZBqJ3r sIYAdIQ5xrafeBExdCVfqEC OzjDA8JXRytNUgN0IoHXWdA YroLRQmijn1WbTnCe6xfAOw eTcyMFxwYXJkXHBsYWluXGZ rUvAuL2HLUXGWZEDINLDnHZ MIN0mXT5dASVFICD4DRHogR JVvMJSaB7vUX27SWeWLQV6Z UAWPD0WQHIsTBVHjawdeGIS 4o7kvrZLeOGMhzUCwDACsJT xhbnNpXGRlZmxhbmcxMDMzX EC2mxIwSLApNHzzVLZrOAtn Fk2krEDzcEdqEjMpSOWao8x fmaCRnjkozNs6s0raZROpAa R7pPTzRDyaV0ukooEcuTCaI BTjOFx9zF71RLSetL8izWTx KIykcqHwFlA9PHkpXCJvQxV 3GGAiaFQgFKFjS1xvIDGjBJ cySPRiCQfggIQqBUN3dFgou 8F8qOYvnSFqvAxgDsMjNjWe SjYBz2TaSSu1fTawH6IoGYY sOpW0pYGmQOQdVLtaQGQsYO IxlsI5eW61TLdtqyG3uKOnk 5Qoa21lf180tB9ojIArRST6 IEGsBFIryTFfTTIfMED9DWM glEWnO5ihPEHpCR1dmeofLY haDJwlVYWkhZP2VINotOWaK 6DsYTJjTLgnCSCjuug2CiZv Wh7tiLBqrVyqJHmzd3tyh6e wrDDcKkd5AIBxWzGaMydnIU joc7Mmj8euJQHhwj2rWWT8x KUivWouh8N8uWCaHCMvxYId VAJzJE0ebJHvFZCzqM1ifcp jXHBnYnJkcmhlYWRccGdicm OsRr6yhHphXCA8JOdqL0nkz C6uDkD9VQngG1bpuN4kVWx0 BZnpNDYklIF7wsN7AOJotRX iY9CdfE8sPRLoAX8jvvz2l1 ohSMS5SEuvWLWlZjZ9vhT3L QMvaVWeJBOsnUgmAChhw939 JBS8RnIgHQChx2LpS0CupQy jK82znDssE45pHGZefItjiV 5vrHxpgD4bTvPeZnMwDDmrz ItdAU5gJSNrN0rjeBCyBPWg GPYzU4ddRgBqlL0cqFphODf tioOnNTBuIag3EXAuoVJtLX TtEju7DHGqYOPtX31ogkzmX LO2zJ8qt8hbn0NpAOdsQRN9 YKOaz01xYNzvujV1VDwsEz1 8TQtpHWN9NUohUQM3cO== CPT Code(s) (test code t2ebeKTyCCPigCJ7RuRaXGM = 3357) qg4ada7ErfYMmeGOjCWsrmU NdxpPivh68wMD0cL26BW1vY YGhJhV7UERzjmN8Csu7KARg GWOapSYjS646p1phd2kfbuB cqIG8vXfgQPSrkkysKyR6UF lyWPLhfsvvGQg2JJfjXUCpl VR6HOYvhURcQ7RlCDKuZH5u mzv4CPT2PJzaVDCjRrF7CSI gzEYgQXZqlYyoHMddu401JS L0SvSrOLYzffBkjRtylF0hH pReXGO1RWSbKJtoSVQ5 CLINICAL HISTORY (test z6pvqZDuAPYgqKK4VvXtHJR code = 3356) ps0hhl6RrvKYlxMCeRSkbiD TnonIfuw38oZF9sS24YX6yT UGzWoA1DCKepgN0Fho5JKRh QJKxlFMfQ154v2cww6oywoX nkYZ3URYoLWPyQ8AnRK8iJK SyeXOnZ18txLQyBIH4NIFzU BCgqMUjLVKbIKO0KSIckKWp Z9nzYNShTK4fumjqQAwmODc bEFChfTJ4GYHipADjL7MjEZ FnDHzsGYEiuye3ZzEqEc5ar GVyeTcyMFxwYXJkXHJpMVxw bGFpblxmczIwXGNmMSBDaG9 zYTDqB8engUu6aZruw9odHQ xwYXJ9 GROSS DESCRIPTION z8wsxZNcKYPjoQMJKJOtW7h (test code = rikMgVTKgkNPfT2QeheskGI [id number]) anZL8rKA4npMzthXLhcUCjL I1EYPDsOqKiJAXakHTeiaPa ScXoIXCdlLYltKA5LGTpTL6 lrbewPWgeNVbhZVGsluE0IF VudCTaT7UsMGFhTN9uytljT CD7LVkbvS2jlyVCWzikJy7h dHRibHtcZjFcZmNoYXJzZXQ lYQCtaSgxLQBrPTf8lR4JDu hwVVQ9KDSJZhzaXTMiKR9Xo 9wqPWDpvIIuLCK5VBouqWWw CUNqPRPmKDh8TKMdETdbvKB zFN4ctHvyZnsyuSnnw2GukE BcXGlkIDUxMDAyIFxcZGIgI N1NMtFgMWslSrx9LMTeJMa7 PJv0KP4MGoKxJABdXlR7FUr 3GYTuWEl6NBnkTT6PNBO7FN QaXEKzSXF0DJClIPYlXTGeV iBcXGYgQXJpYWwgXFxmbCBc NQ1ojHoeyRHntdJDKrEPCUo wAlrxVDAqtd6qiKCoSG4TAL PjeUGWOPM7YU5eOLSKYvbod FAcJYMftOibOJqxyC3nHW0W GPk7oiEiDAXfSdQdPlUvQCo 6YEBbLbLsa0atRHfuGkQwWT Dqu3z5iNV2lDJvuBL9vKSll IplLV2uxEIzIQ7CGvXbfxNh ImdhbGxibGFkZGVyIiBhbmQ iD56ad8ebzRFuq5FeGG1qyI 51OSD5JQrxqZssbQKqWOZpZ Sd3OgRolVImMymsgTWcNcyx J34nUXwfbPEvMFxazjBcNXG as3bauMSgXA2mpceufr5rCM xeBEOpgc8xQMTgkeFglM2oT Y3kbb5ncvWnwaTvd55bz7Rc GtWZXFC6v0ItHjXwcHG4PVu 7rAXpGC6gPGOxdSHiae52WD ByZXNlbnQuIFRoZSBnYWxsY mxhZGRlciBpcyBvcGVuZWQg wT9zxbI6SLBeROLjfSdkdZ7 vdAFyuE29ucHcw5UrH4EaYE 0gqTGzaC55YBU8bMyuZQVdv GUuICBObyBjYWxjdWxpIGdy z2RtcRdceFIihqBjRdukFRW 1qCRwoVKug0KrIEtiKJHzci 2dtH1tZWDsTQR4JSx8MED4T gWScHGwo9IgwNO0tSvus05d h6PltoGeU8BtNOZuh32uVT9 aUUU0CsXmLPdaHHRyPyNfY1 5vRK4sDXaix3ZaUZasi3vrn aMdRAOoZJzmOS23uFPhUADu ECHdiRJex9KkdAD2aGGgJKP xU9Mlm07aOEOmBWDcjVRrdG A8EZIdZOUxkrWWIbnfYETyO SoPMXC0mE9sWEZkITJvnMOl GL6BKFQ6AIOqf3zuqHYsAS1 fqsttkyoaXR9tGbIwGCJumg KxA5UunMHvILPpZIQzm9Wqe OwtCWYrLQoDZofaW9AttXPc OIYjEYUqc3BcbYizBFMlJAh vwFXuNE7FW9B9wEYvoH2xMX 3osqFuWFdaBYBmX7I1SUThb GlsFLBfLOsqgXddsC9oUADv Z43ln7CXi5ZrLGYaKJsbl4x soEjsc1NdlXPsFVfoKVLhgR KuLBbwrR3hVcPwa6dhyUk8L LmqbtU2BNUitm0IKukdbD1i KwUoz9bzaQs5PETIGotmuaR 9w6xhhXary0BdiSZhVQ9GBe 0= MICROSCOPIC n4symZGtDLDrlSS3ZaQjRIM DESCRIPTION (test code vj2emd3RulNXpoIZpOOptfC = 3371) WwhePxyw79xGS0gW60XU7sY JYlVuB5FARihlI2Ovr8OHXy XSKqmFQdP060y4nfe0uzukN ghNR9bRvdSHRjekywSaY0XW tnOQPfcbowKQc9HHffZNKjp SD1QFZjlKJbM9KlODAsHH3l rsd8ARO8OKfhOSVdKeG3FPG rcZVuGPAcdJxzPImot308QJ G4YbArIEJvkrMapQkaaQ6pU lOhWKTUCJUtt1VcANPnlYAk fQ== Gross assessment was [facility] performed at ([facility], code = 2777) Department of Pathology, [address] [place] [address], Technical component [facility] was performed at ([facility], code = 2778) Department of Pathology, [address] [place] [address], Professional component [facility] was performed at ([facility], code = 2779) Department of Pathology, [address] [place] [address], [facility] [id number] 19:01:09Surgical Pathology Report Case: [id number] Authorizing Provider: Winter Henderson MD Collected: 12/17/2022 03:40 PM Ordering Location: [facility] PERIOPERATIVE Received: 12/18/2022 09:02 AM SERVICES Pathologist: Westley Walker MD Specimen: Gallbladder GALLBLADDER, CHOLECYSTECTOMY- CHRONIC CHOLECYSTITIS Signing Pathologist Direct Phone Line: [phone] signed by Westley Walker MD on 12/22/2022 at 7:01 [id number] A. Gallbladder.Received fresh, labeled with the patient's name, MRN and "gallbladder" and consists of an intact gallbladder (8.0 x 3.7 x 1.7 cm) which has a proximal margin. The serosa is pink-maroon and smooth. A cystic duct lymph node is not present. The gallbladder is opened to reveal a minimal amount of green-yellow, thin bile. No calculi grossly identified the mucosa is aggarwal-pink and velvety. The wall thickness ranges from 0.1-0.4 cm. No gross lesions areidentified. Ski Patroller sections are submitted.Section codeA1: Proximal margin, en face and gallbladder wallA2: Gallbladder wallJIM Sun StudentPerformedBaylor [facility],Department of Pathology, [address] [place] [address], [facility], Department of Pathology, [address] [place] [address], [facility], Department of Pathology, [address] [place] [address], YUXTWTQAVM AND [id number] 04:52:15 Test Item Value Reference Range Interpretation Comments HEMOGLOBIN (BEAKER) (test code = 9.9 GM/DL 11.2-15.7 L 410) HEMATOCRIT (BEAKER) (test code = 31.7 % 34.1-44.9 L 411) Research Assistant Professor ID - [id number] 06:49:16 Test Item Value Reference Range Interpretation Comments MAGNESIUM (BEAKER) 1.8 mg/dL 1.6-2.6 Specimen moderately (test code = 627) hemolyzed Research Assistant Professor ID - DERICK [id number] 06:49:16 Test Item Value Reference Range Interpretation Comments PHOSPHORUS (BEAKER) 2.6 mg/dL 2.3-4.7 Specimen moderately (test code = 604) hemolyzed Research Assistant Professor ID - DERICK WBASIC METABOLIC [id number] 06:49:16 Test Item Value Reference Range Interpretation Comments SODIUM (BEAKER) 142 meq/L 136-145 (test code = 381) POTASSIUM 4.2 meq/L 3.5-5.1 Specimen modera tely (BEAKER) (test hemolyzed code = 379) CHLORIDE (BEAKER) 113 meq/L 98-107 H (test code = 382) CO2 (BEAKER) 23 meq/L 22-29 (test code = 355) BLOOD UREA 9 mg/dL 7-21 NITROGEN (BEAKER) (test code = 354) CREATININE 0.76 mg/dL 0.57-1.25 Specimen modera tely (BEAKER) (test hemolyzed code = 358) GLUCOSE RANDOM 71 mg/dL 70-105 (BEAKER) (test code = 652) CALCIUM (BEAKER) 8.4 mg/dL 8.4-10.2 (test code = 697) EGFR (BEAKER) 82 Interpretatio n of eGFR (test code = mL/min/1.73 values Stage De scription 1092) sq m Result G1 Maty l or high >=90 G2 Mildly decreased 60-89 G3a Mildl y to moderately 45-5 9 G3b Moderately to s everely 30-44 G4 Severl y decreased 15-29 G5 Kidne y failure <15Reported eGF R is based on the CKD-EPI 2020 equation that d oes not use a race coefficientEsti mated GFR is not as accur ate as Creatinine Peggy benny in predicting glom erular filtration rate . Estimated GFR is not appl icable for dialysis patien ts Research Assistant Professor ID - DERICK WCBC (HEMOGRAM ONLY)2022-12-21 06:25:01 Test Item Value Reference Range Interpretation Comments WHITE BLOOD CELL COUNT (BEAKER) 7.5 K/ L 3.5-10.5 (test code = 775) RED BLOOD CELL COUNT (BEAKER) 3.26 M/ L 3.93-5.22 L (test code = 761) HEMOGLOBIN (BEAKER) (test code = 9.5 GM/DL 11.2-15.7 L 410) HEMATOCRIT (BEAKER) (test code = 30.2 % 34.1-44.9 L 411) MEAN CORPUSCULAR VOLUME (BEAKER) 93 fL 79-95 (test code = 753) MEAN CORPUSCULAR HEMOGLOBIN 29.1 pg 25.6-32.2 (BEAKER) (test code = 751) MEAN CORPUSCULAR HEMOGLOBIN CONC 31.5 GM/DL 32.2-35.5 L (BEAKER) (test code = 752) RED CELL DISTRIBUTION WIDTH 15.0 % 11.7-14.4 H (BEAKER) (test code = 412) PLATELET COUNT (BEAKER) (test 278 K/CU MM 150-450 code = 756) MEAN PLATELET VOLUME (BEAKER) 12.4 fL 9.4-12.3 H (test code = 754) NUCLEATED RED BLOOD CELLS 0 /100 WBC 0-0 (BEAKER) (test code = 413) SARS-CoV2/RT-PCR (Asymptomatic ONLY)2022-12-21 06:24:12 Test Item Value Reference Interpretation Comments Range SARS-COV2/RT-PCR Negative Negative The SARS-Co V-2 (test code = target nucleic 84027-3) acids are not detected in thi s specimen. Negat lupis results do not preclude SARS-C oV-2 infection and should not be u sed as the sole bas is for patient management decisions. Nega tive results must be combined with clinical observations, patient history , and epidemiolog ical information. A false negative result may occu r if a specimen is improperly collected, transported or handled. This SARS CoV-2 test is a rapid, real-jerman e RT-PCR test intended for e qualitative detection of nucleic acid fr om SARS-CoV-2 in a nasopharyngeal swab specimen collec hattie from individual s suspected of COVID-19 by the ir healthcare provider. JERONIMO (test code = This test has been JERONIMO) authorized by FDA under an EUA for use by authorized laboratories. This test is only authorized for the duration of the declaration that circumstances exist justifying the authorization of emergency use of in vitro diagnostic tests for detection and/or diagnosis of COVID-19 under Section 564(b)(1) of the Federal Food, Drug and Cosmetic Act, 21 U.S.C. 360bbb-3(b)(1), unless the authorization is terminated or revoked sooner. Fact Sheet for Healthcare Providers: https://www.[employer]/Documents/Xp ert%20Xpress%20SAR S%20CoV-2/Fact%20S heets/302-3802%20S ARS-COV-2%20HEALTH CARE%20PROVIDERS%2 0FACT%20SHEET.pdf Fact Sheet for Healthcare Patients: https://www.[employer]/Documents/Xp ert%20Xpress%20SAR S%20CoV-2/Fact%20S heets/302-3801%20S ARS-COV-2%20PATIEN T%20FACT%20SHEET.p df Lab Interpretation Normal (test code = 48308-3) [facility]2022-12-21 06:24:12 Test Item Value Reference Interpretation Comments Range SARS-COV2/RT-PCR Negative Negative The SARS-Co V-2 (test code = target nucleic 76300-7) acids are not detected in thi s specimen. Negat lupis results do not preclude SARS-C oV-2 infection and should not be u sed as the sole bas is for patient management decisions. Nega tive results must be combined with clinical observations, patient history , and epidemiolog ical information. A false negative result may occu r if a specimen is improperly collected, transported or handled. This S ARS CoV-2 test is a rapid, real-jerman e RT-PCR test intended for th e qualitative detection of nucleic acid fr om SARS-CoV-2 in a nasopharyngeal swab specimen collec hattie from individual s suspected of COVID-19 by the ir healthcare provider. JERONIMO (test code = This test has been JERONIMO) authorized by FDA under an EUA for use by authorized laboratories. This test is only authorized for the duration of the declaration that circumstances exist justifying the authorization of emergency use of in vitro diagnostic tests for detection and/or diagnosis of COVID-19 under Section 564(b)(1) of the Federal Food, Drug and Cosmetic Act, 21 U.S.C. 360bbb-3(b)(1), unless the authorization is terminated or revoked sooner. Fact Sheet for Healthcare Providers: https://www.[employer]/Documents/Xp ert%20Xpress%20SAR S%20CoV-2/Fact%20S heets/302-3802%20S ARS-COV-2%20HEALTH CARE%20PROVIDERS%2 0FACT%20SHEET.pdf Fact Sheet for Healthcare Patients: https://www.[employer]/Documents/Xp ert%20Xpress%20SAR S%20CoV-2/Fact%20S heets/302-3801%20S ARS-COV-2%20PATIEN T%20FACT%20SHEET.p df Lab Interpretation Normal (test code = 83257-4) [facility])2022-12-21 06:24:12 Test Item Value Reference Range Interpretation Comments SARS-COV2/RT-PCR Negative Negative The SARS-Co V-2 target (test code = nucleic acids a re not 8153806) detected in thi s specimen. Negative result s do not preclude SARS-C oV-2 infection and s hould not be used as the rene e basis for patient managem ent decisions. Nega tive results must be combine d with clinical observ ations, patient history , and epidemiological information. A false negativ e result may occur if a spec imen is improperly terri ected, transported or handled. This SARS CoV-2 test is a rapid, real-time RT-PC R test intended for th e qualitative detection of nu cleic acid from SARS-CoV-2 in a nasopharyngeal swab specimen collected from individuals suspected of CO VID-19 by their healthcar e provider. This test has been authorized by FDA under an EUA for use by authorized laboratories. This test is only authorized for the duration of the declaration that circumstances exist justifying the authorization of emergency use of in vitro diagnostic tests for detection and/or diagnosis of COVID-19 under Section 564(b)(1) of the Federal Food, Drug and Cosmetic Act, 21 U.S.C. 360bbb-3(b)(1), unless the authorization is terminated or revoked sooner. Fact Sheet for Healthcare Providers: https://www.[employer] m/Documents/Xpert%20Xpress%20SARS%20CoV-2/Fact%20Sheets/3023802%91JHUV-RUC-9%20 HEALTHCARE%20PROVIDERS%20FACT%20SHEET.pdf Fact Sheet for Healthcare Patients: https://www.[employer]/Documents/Xpert%20Xp ress%20SARS%20CoV-2/Fact%20Sheets/3023801%97IPJZ-OIG-2%20PATIENT%20FACT%20SHEET .pdfBAPIKEVILLE MEDICAL CENTER METABOLIC [id number] 07:11:41 Test Item Value Reference Range Interpretation Comments SODIUM (BEAKER) 142 meq/L 136-145 (test code = 381) POTASSIUM 4.4 meq/L 3.5-5.1 Specimen modera tely (BEAKER) (test hemolyzed code = 379) CHLORIDE (BEAKER) 113 meq/L 98-107 H (test code = 382) CO2 (BEAKER) 21 meq/L 22-29 L (test code = 355) BLOOD UREA 9 mg/dL 7-21 NITROGEN (BEAKER) (test code = 354) CREATININE 0.77 mg/dL 0.57-1.25 Specimen modera tely (BEAKER) (test hemolyzed code = 358) GLUCOSE RANDOM 87 mg/dL 70-105 (BEAKER) (test code = 652) CALCIUM (BEAKER) 8.7 mg/dL 8.4-10.2 (test code = 697) EGFR (BEAKER) 81 Interpretatio n of eGFR (test code = mL/min/1.73 values Stage D escription 1092) sq m Result G1 Maty l or high >=90 G2 Mildly decreased 60-89 G3a Mildl y to moderately 45-5 9 G3b Moderately to s everely 30-44 G4 Severl y decreased 15-29 G5 Kidney failure <15Reported eGF R is based on the CKD-EPI 2020 equation that d oes not use a race coefficientEsti mated GFR is not as accur ate as Creatinine Peggy benny in predicting glom erular filtration rate . Estimated GFR is not appl icable for dialysis patien ts Research Assistant Professor ID - PIAYA LCBC (HEMOGRAM ONLY)2022-12-20 06:10:26 Test Item Value Reference Range Interpretation Comments WHITE BLOOD CELL COUNT (BEAKER) 7.3 K/ L 3.5-10.5 (test code = 775) RED BLOOD CELL COUNT (BEAKER) 3.64 M/ L 3.93-5.22 L (test code = 761) HEMOGLOBIN (BEAKER) (test code = 10.6 GM/DL 11.2-15.7 L 410) HEMATOCRIT (BEAKER) (test code = 33.6 % 34.1-44.9 L 411) MEAN CORPUSCULAR VOLUME (BEAKER) 92 fL 79-95 (test code = 753) MEAN CORPUSCULAR HEMOGLOBIN 29.1 pg 25.6-32.2 (BEAKER) (test code = 751) MEAN CORPUSCULAR HEMOGLOBIN CONC 31.5 GM/DL 32.2-35.5 L (BEAKER) (test code = 752) RED CELL DISTRIBUTION WIDTH 14.7 % 11.7-14.4 H (BEAKER) (test code = 412) PLATELET COUNT (BEAKER) (test 290 K/CU MM 150-450 code = 756) MEAN PLATELET VOLUME (BEAKER) 12.0 fL 9.4-12.3 (test code = 754) NUCLEATED RED BLOOD CELLS 0 /100 WBC 0-0 (BEAKER) (test code = 413) HEPATIC FUNCTION [id number] 05:41:13 Test Item Value Reference Range Interpretation Comments TOTAL PROTEIN (BEAKER) (test code = 5.9 gm/dL 6.0-8.3 L 770) ALBUMIN (BEAKER) (test code = 1145) 3.0 g/dL 3.5-5.0 L BILIRUBIN TOTAL (BEAKER) (test code 1.0 mg/dL 0.2-1.2 = 377) BILIRUBIN DIRECT (BEAKER) (test 0.6 mg/dL 0.1-0.5 H code = 706) ALKALINE PHOSPHATASE (BEAKER) (test 135 U/L 40-150 code = 346) AST (SGOT) (BEAKER) (test code = 52 U/L 5-34 H 353) ALT (SGPT) (BEAKER) (test code = 30 U/L 6-55 347) Research Assistant Professor ID - ASHLYNAYA LBASIC METABOLIC [id number] 05:41:12 Test Item Value Reference Range Interpretation Comments SODIUM (BEAKER) 138 meq/L 136-145 (test code = 381) POTASSIUM 3.2 meq/L 3.5-5.1 L (BEAKER) (test code = 379) CHLORIDE (BEAKER) 105 meq/L 98-107 (test code = 382) CO2 (BEAKER) 24 meq/L 22-29 (test code = 355) BLOOD UREA 14 mg/dL 7-21 NITROGEN (BEAKER) (test code = 354) CREATININE 0.97 mg/dL 0.57-1.25 (BEAKER) (test code = 358) GLUCOSE RANDOM 104 mg/dL 70-105 (BEAKER) (test code = 652) CALCIUM (BEAKER) 8.6 mg/dL 8.4-10.2 (test code = 697) EGFR (BEAKER) 61 Interpretatio n of eGFR (test code = mL/min/1.73 values Stage De scription 1092) sq m Result G1 Maty l or high >=90 G2 Mildly decreased 60-89 G3a Mildl y to moderately 45-5 9 G3b Moderately to s everely 30-44 G4 Severl y decreased 15-29 G5 Kidney failure <15Reported eGF R is based on the CKD-EPI 2020 equation that d oes not use a race coefficientEsti mated GFR is not as accur ate as Creatinine Peggy zapata in predicting glom erular filtration rate . Estimated GFR is not appl icable for dialysis patien ts Research Assistant Professor ID - NELLY [id number] 05:41:12 Test Item Value Reference Range Interpretation Comments MAGNESIUM (BEAKER) (test code = 1.8 mg/dL 1.6-2.6 627) Research Assistant Professor ID - NELLY [id number] 05:41:12 Test Item Value Reference Range Interpretation Comments PHOSPHORUS (BEAKER) (test code = 2.9 mg/dL 2.3-4.7 604) Research Assistant Professor ID - NELLY LCBC (HEMOGRAM ONLY)2022-12-19 05:05:18 Test Item Value Reference Range Interpretation Comments WHITE BLOOD CELL COUNT (BEAKER) 10.7 K/ L 3.5-10.5 H (test code = 775) RED BLOOD CELL COUNT (BEAKER) 3.67 M/ L 3.93-5.22 L (test code = 761) HEMOGLOBIN (BEAKER) (test code = 10.7 GM/DL 11.2-15.7 L 410) HEMATOCRIT (BEAKER) (test code = 34.0 % 34.1-44.9 L 411) MEAN CORPUSCULAR VOLUME (BEAKER) 93 fL 79-95 (test code = 753) MEAN CORPUSCULAR HEMOGLOBIN 29.2 pg 25.6-32.2 (BEAKER) (test code = 751) MEAN CORPUSCULAR HEMOGLOBIN CONC 31.5 GM/DL 32.2-35.5 L (BEAKER) (test code = 752) RED CELL DISTRIBUTION WIDTH 14.6 % 11.7-14.4 H (BEAKER) (test code = 412) PLATELET COUNT (BEAKER) (test 267 K/CU MM 150-450 code = 756) MEAN PLATELET VOLUME (BEAKER) 11.8 fL 9.4-12.3 (test code = 754) NUCLEATED RED BLOOD CELLS 0 /100 WBC 0-0 (BEAKER) (test code = 413) BASIC METABOLIC [id number] 04:51:30 Test Item Value Reference Range Interpretation Comments SODIUM (BEAKER) 142 meq/L 136-145 (test code = 381) POTASSIUM 4.2 meq/L 3.5-5.1 (BEAKER) (test code = 379) CHLORIDE (BEAKER) 108 meq/L 98-107 H (test code = 382) CO2 (BEAKER) 26 meq/L 22-29 (test code = 355) BLOOD UREA 17 mg/dL 7-21 NITROGEN (BEAKER) (test code = 354) CREATININE 0.86 mg/dL 0.57-1.25 (BEAKER) (test code = 358) GLUCOSE RANDOM 122 mg/dL 70-105 H (BEAKER) (test code = 652) CALCIUM (BEAKER) 9.0 mg/dL 8.4-10.2 (test code = 697) EGFR (BEAKER) 71 Interpretatio n of eGFR (test code = mL/min/1.73 values Stage De scription 1092) sq m Result G1 Maty l or high >=90 G2 Mildly decreased 60-89 G3a Mildl y to moderately 45-5 9 G3b Moderately to s everely 30-44 G4 Severl y decreased 15-29 G5 Kidney failure <15Reported eGF R is based on the CKD-EPI 2020 equation that d oes not use a race coefficientEsti mated GFR is not as accur ate as Creatinine Peggy benny in predicting glom erular filtration rate . Estimated GFR is not appl icable for dialysis patien ts Research Assistant Professor ID - MARCOCBC (HEMOGRAM ONLY)2022-12-18 04:35:42 Test Item Value Reference Range Interpretation Comments WHITE BLOOD CELL COUNT (BEAKER) 13.0 K/ L 3.5-10.5 H (test code = 775) RED BLOOD CELL COUNT (BEAKER) 4.21 M/ L 3.93-5.22 (test code = 761) HEMOGLOBIN (BEAKER) (test code = 12.0 GM/DL 11.2-15.7 410) HEMATOCRIT (BEAKER) (test code = 39.5 % 34.1-44.9 411) MEAN CORPUSCULAR VOLUME (BEAKER) 94 fL 79-95 (test code = 753) MEAN CORPUSCULAR HEMOGLOBIN 28.5 pg 25.6-32.2 (BEAKER) (test code = 751) MEAN CORPUSCULAR HEMOGLOBIN CONC 30.4 GM/DL 32.2-35.5 L (BEAKER) (test code = 752) RED CELL DISTRIBUTION WIDTH 14.6 % 11.7-14.4 H (BEAKER) (test code = 412) PLATELET COUNT (BEAKER) (test 304 K/CU MM 150-450 code = 756) MEAN PLATELET VOLUME (BEAKER) 11.6 fL 9.4-12.3 (test code = 754) NUCLEATED RED BLOOD CELLS 0 /100 WBC 0-0 (BEAKER) (test code = 413) BASIC METABOLIC [id number] 04:31:39 Test Item Value Reference Range Interpretation Comments SODIUM (BEAKER) 143 meq/L 136-145 (test code = 381) POTASSIUM 3.3 meq/L 3.5-5.1 L (BEAKER) (test code = 379) CHLORIDE (BEAKER) 107 meq/L 98-107 (test code = 382) CO2 (BEAKER) 28 meq/L 22-29 (test code = 355) BLOOD UREA 19 mg/dL 7-21 NITROGEN (BEAKER) (test code = 354) CREATININE 0.83 mg/dL 0.57-1.25 (BEAKER) (test code = 358) GLUCOSE RANDOM 84 mg/dL 70-105 (BEAKER) (test code = 652) CALCIUM (BEAKER) 8.8 mg/dL 8.4-10.2 (test code = 697) EGFR (BEAKER) 74 Interpretatio n of eGFR (test code = mL/min/1.73 values Stage De scription 1092) sq m Result G1 Maty l or high >=90 G2 Mildly decreased 60-89 G3a Mildl y to moderately 45-5 9 G3b Moderately to s everely 30-44 G4 Severl y decreased 15-29 G5 Kidney failure <15Reported eGF R is based on the CKD-EPI 2020 equation that d oes not use a race coefficientEsti mated GFR is not as accur ate as Creatinine Peggy zapata in predicting glom erular filtration rate . Estimated GFR is not appl icable for dialysis patien ts Research Assistant Professor ID - AMADOR GCBC (HEMOGRAM ONLY)2022-12-17 04:08:27 Test Item Value Reference Range Interpretation Comments WHITE BLOOD CELL COUNT (BEAKER) 7.2 K/ L 3.5-10.5 (test code = 775) RED BLOOD CELL COUNT (BEAKER) 3.97 M/ L 3.93-5.22 (test code = 761) HEMOGLOBIN (BEAKER) (test code = 11.4 GM/DL 11.2-15.7 410) HEMATOCRIT (BEAKER) (test code = 36.0 % 34.1-44.9 411) MEAN CORPUSCULAR VOLUME (BEAKER) 91 fL 79-95 (test code = 753) MEAN CORPUSCULAR HEMOGLOBIN 28.7 pg 25.6-32.2 (BEAKER) (test code = 751) MEAN CORPUSCULAR HEMOGLOBIN CONC 31.7 GM/DL 32.2-35.5 L (BEAKER) (test code = 752) RED CELL DISTRIBUTION WIDTH 14.3 % 11.7-14.4 (BEAKER) (test code = 412) PLATELET COUNT (BEAKER) (test 255 K/CU MM 150-450 code = 756) MEAN PLATELET VOLUME (BEAKER) 11.7 fL 9.4-12.3 (test code = 754) NUCLEATED RED BLOOD CELLS 0 /100 WBC 0-0 (BEAKER) (test code = 413) STRESS ECHO With Contrast & [id number] 15:59:39Ejection FractionSLEH ECHO [facility] With Contrast & [id number] 15:59:39Ejection FractionSLE ECHO [facility] [id number] 05:24:49 Test Item Value Reference Range Interpretation Comments TOTAL PROTEIN (BEAKER) (test code = 6.6 gm/dL 6.0-8.3 770) ALBUMIN (BEAKER) (test code = 1145) 3.3 g/dL 3.5-5.0 L BILIRUBIN TOTAL (BEAKER) (test code 1.2 mg/dL 0.2-1.2 = 377) BILIRUBIN DIRECT (BEAKER) (test 0.8 mg/dL 0.1-0.5 H code = 706) ALKALINE PHOSPHATASE (BEAKER) (test 179 U/L 40-150 H code = 346) AST (SGOT) (BEAKER) (test code = 36 U/L 5-34 H 353) ALT (SGPT) (BEAKER) (test code = 29 U/L 6-55 347) Research Assistant Professor KEE - DERICK WBASIC METABOLIC [id number] 05:24:48 Test Item Value Reference Range Interpretation Comments SODIUM (BEAKER) 141 meq/L 136-145 (test code = 381) POTASSIUM 3.7 meq/L 3.5-5.1 (BEAKER) (test code = 379) CHLORIDE (BEAKER) 106 meq/L 98-107 (test code = 382) CO2 (BEAKER) 27 meq/L 22-29 (test code = 355) BLOOD UREA 18 mg/dL 7-21 NITROGEN (BEAKER) (test code = 354) CREATININE 0.73 mg/dL 0.57-1.25 (BEAKER) (test code = 358) GLUCOSE RANDOM 110 mg/dL 70-105 H (BEAKER) (test code = 652) CALCIUM (BEAKER) 9.1 mg/dL 8.4-10.2 (test code = 697) EGFR (BEAKER) 86 Interpretatio n of eGFR (test code = mL/min/1.73 values Stage De scription 1092) sq m Result G1 Maty l or high >=90 G2 Mildly decreased 60-89 G3a Mildl y to moderately 45-5 9 G3b Moderately to s everely 30-44 G4 Severl y decreased 15-29 G5 Kidney failure <15Reported eGF R is based on the CKD-EPI 2020 equation that d oes not use a race coefficientEsti mated GFR is not as accur ate as Creatinine Peggy benny in predicting glom erular filtration rate . Estimated GFR is not appl icable for dialysis patien ts Research Assistant Professor ID - DERICK [facility] (HEMOGRAM ONLY)2022-12-16 04:47:08 Test Item Value Reference Range Interpretation Comments WHITE BLOOD CELL COUNT (BEAKER) 7.7 K/ L 3.5-10.5 (test code = 775) RED BLOOD CELL COUNT (BEAKER) 4.12 M/ L 3.93-5.22 (test code = 761) HEMOGLOBIN (BEAKER) (test code = 12.0 GM/DL 11.2-15.7 410) HEMATOCRIT (BEAKER) (test code = 37.3 % 34.1-44.9 411) MEAN CORPUSCULAR VOLUME (BEAKER) 91 fL 79-95 (test code = 753) MEAN CORPUSCULAR HEMOGLOBIN 29.1 pg 25.6-32.2 (BEAKER) (test code = 751) MEAN CORPUSCULAR HEMOGLOBIN CONC 32.2 GM/DL 32.2-35.5 (BEAKER) (test code = 752) RED CELL DISTRIBUTION WIDTH 14.3 % 11.7-14.4 (BEAKER) (test code = 412) PLATELET COUNT (BEAKER) (test 246 K/CU MM 150-450 code = 756) MEAN PLATELET VOLUME (BEAKER) 11.9 fL 9.4-12.3 (test code = 754) NUCLEATED RED BLOOD CELLS 0 /100 WBC 0-0 (BEAKER) (test code = 413) [place], [id number] 12:21:00Reason for exam:->bile duct obstruction [facility] CENTERName: GAMA APARICIO : 1950 Sex: FAn imaging unit was utilized for this procedure. No radiologist interpretation was requested. Refer to the EMR for findings. Refer to PACS for any patient radiation dose information.HEPATIC FUNCTION [id number] 05:39:53 Test Item Value Reference Range Interpretation Comments TOTAL PROTEIN (BEAKER) 6.5 gm/dL 6.0-8.3 Speci men slightly (test code = 770) hemolyzed ALBUMIN (BEAKER) (test 3.2 g/dL 3.5-5.0 L Speci men slightly code = 1145) hemolyzed BILIRUBIN TOTAL 1.8 mg/dL 0.2-1.2 H Specimen sli ghtly (BEAKER) (test code = hemoly zed 377) BILIRUBIN DIRECT 1.0 mg/dL 0.1-0.5 H Specimen sl ightly (BEAKER) (test code = hemoly zed 706) ALKALINE PHOSPHATASE 166 U/L 40-150 H (BEAKER) (test code = 346) AST (SGOT) (BEAKER) 31 U/L 5-34 Specimen slightly (test code = 353) hemolyzed ALT (SGPT) (BEAKER) 33 U/L 6-55 Specimen slightly (test code = 347) hemolyzed Research Assistant Professor ID - NELLY [id number] 05:39:52 Test Item Value Reference Range Interpretation Comments PHOSPHORUS (BEAKER) 1.8 mg/dL 2.3-4.7 L Specimen slightly (test code = 604) hemolyzed Research Assistant Professor ID - NELLY LBASIC METABOLIC [id number] 05:39:52 Test Item Value Reference Range Interpretation Comments SODIUM (BEAKER) 141 meq/L 136-145 (test code = 381) POTASSIUM 3.7 meq/L 3.5-5.1 Specimen slight ly (BEAKER) (test hemolyzed code = 379) CHLORIDE (BEAKER) 107 meq/L 98-107 (test code = 382) CO2 (BEAKER) 24 meq/L 22-29 (test code = 355) BLOOD UREA 18 mg/dL 7-21 NITROGEN (BEAKER) (test code = 354) CREATININE 0.70 mg/dL 0.57-1.25 Specimen slight ly (BEAKER) (test hemolyzed code = 358) GLUCOSE RANDOM 77 mg/dL 70-105 (BEAKER) (test code = 652) CALCIUM (BEAKER) 9.4 mg/dL 8.4-10.2 (test code = 697) EGFR (BEAKER) 91 Interpretatio n of eGFR (test code = mL/min/1.73 values Stage De scription 1092) sq m Result G1 Maty l or high >=90 G2 Mildly decreased 60-89 G3a Mildl y to moderately 45-5 9 G3b Moderately to s everely 30-44 G4 Severl y decreased 15-29 G5 Kidney failure <15Reported eGF R is based on the CKD-EPI 2020 equation that d oes not use a race coefficientEsti mated GFR is not as accur ate as Creatinine Peggy zapata in predicting glom erular filtration rate . Estimated GFR is not appl icable for dialysis patien ts Research Assistant Professor ID - NELLY [id number] 05:39:51 Test Item Value Reference Range Interpretation Comments MAGNESIUM (BEAKER) 2.0 mg/dL 1.6-2.6 Specimen slightly (test code = 627) hemolyzed Research Assistant Professor ID - PIAYA LPROTHROMBIN TIME/[id number] 05:13:35 Test Item Value Reference Range Interpretation Comments PROTIME (BEAKER) 13.9 seconds 11.9-14.2 (test code = 759) INR (BEAKER) (test 1.14 See_Comment [Automat ed message] code = 370) The system [employer] generated this result transmitted ref erence range: <=5.90. The reference range was not used to int erpret this result as normal/abnormal . RECOMMENDED COUMADIN/WARFARIN INR THERAPY RANGESSTANDARD DOSE: 2.0 - 3.0 Includes: PROPHYLAXIS for venous thrombosis, systemic embolization; TREATMENT for venous thrombosis and/or pulmonary embolus.HIGH RISK: Target INR is 2.5-3.5 for patients with mechanical heart valves.CBC (HEMOGRAM ONLY)2022-12-15 04:52:08 Test Item Value Reference Range Interpretation Comments WHITE BLOOD CELL COUNT (BEAKER) 9.4 K/ L 3.5-10.5 (test code = 775) RED BLOOD CELL COUNT (BEAKER) 4.17 M/ L 3.93-5.22 (test code = 761) HEMOGLOBIN (BEAKER) (test code = 11.8 GM/DL 11.2-15.7 410) HEMATOCRIT (BEAKER) (test code = 37.8 % 34.1-44.9 411) MEAN CORPUSCULAR VOLUME (BEAKER) 91 fL 79-95 (test code = 753) MEAN CORPUSCULAR HEMOGLOBIN 28.3 pg 25.6-32.2 (BEAKER) (test code = 751) MEAN CORPUSCULAR HEMOGLOBIN CONC 31.2 GM/DL 32.2-35.5 L (BEAKER) (test code = 752) RED CELL DISTRIBUTION WIDTH 14.5 % 11.7-14.4 H (BEAKER) (test code = 412) PLATELET COUNT (BEAKER) (test 225 K/CU MM 150-450 code = 756) MEAN PLATELET VOLUME (BEAKER) 12.4 fL 9.4-12.3 H (test code = 754) NUCLEATED RED BLOOD CELLS 0 /100 WBC 0-0 (BEAKER) (test code = 413) RAD, ABDOMEN/KUB, 1 VIEW [id number] 14:20:00Reason for exam:->identify location of lap band port [facility] CENTERName: GAMA APARICIO : 1950 Sex: FFINAL REPORT EXAMINATION: RAD, ABDOMEN/KUB, 1 VIEW AP. INDICATION: 72-year-old female, identified laparoscopic band port. COMPARISON: CT abdomen dated 12/08/2017. FINDINGS:A laparoscopic gastric band is noted with port overlying the mid abdomen. Gas is scattered throughout the bowel. No dilated loops of bowel. No evidence of pneumatosis or portal venous gas. Contrast material is noted in the bladder. Mild degenerative changes of the bilateral hip joints. Chain sutures overlie the left upper quadrant of the abdomen. Cholecystectomy clips are noted. IMPRESSION:A laparoscopic gastric band is noted with port overlying the mid abdomen. Of note, the port is implanted 5 cm deep to the skin on CT abdomen dated 12/08/2017 and may be difficult to palpate. Signed: Carrington Solis MDReport Verified Date/Time: 12/14/2022 14:20:06 Reading Location: [facility] C013X Ortho Consult Reading Room RAD, CHEST, 1 VIEW, NON [id number] 08:16:00 Reason for exam:->?edema on outside CXRShould this be performed at the bedside?->[facility] 1950 Sex: FFINAL REPORT RAD, CHEST, 1 VIEW, NON DEPT TECHNIQUE: Frontal view(s) of the chest. INDICATION: ?edema on outside CXR COMPARISON: Chest radiograph 02/17/2012 FINDINGS/IMPRESSION: Lines/Tubes: A right-sided central venous catheter with tip projecting over the mid SVC Lungs/pleura: Possible mild interstitial edema in the mid to lower lungs. Mild streaky opacities bilaterally likely refl ect atelectasis or scarring No pleural effusion. No pneumothorax. Heart and Mediastinum: Prominent cardiac silhouette, accentuated by technique. Soft Tissues and Bones: Unchanged. Signed: Lety Alexandra Verified Date/Time: 12/14/2022 08:16:28 Electronically signed by: LETY ALEXANDRA MD on 08:16 AMCT, CHEST WITH IV CONTRAST- PE TEST [id number] 04:48:00 Unlisted Reason for Exam - Click Yes and Enter Reason Below->No [facility] CENTERName: GAMA APARICIO : 1950 Sex: FFINAL REPORT CT angiogram of the CHEST WITH IV CONTRAST- PE TEST DESIGN with three-dimensional reconstructions CLINICAL STATEMENT: CT chest dated 12/08/2017. COMPARISON: Pulmonary embolism suspected, high intermediate probability, positive d-dimer. Dose modulation, iterative reconstruction, and/or weight-based adjustment of the mA/kV was utilized to reduce the radiation dose to as low as reasonably achievable. FINDINGS: Thyroid is within normal limits. Aorta is mildly calcified without aneurysm or dissection. Pulmonary arteries are well-opacified with no significant filling defects to suggest acute pulmonary embolism. Mild mediastinal and bilateral hilar lymphadenopathy. Mild layering right pleural effusion. Mild layering left pleural effusion. Visualized upper abdominal organsdemonstrate gastric band in place. Evaluation of the lung parenchyma demonstrates trachea and major airways to be patent. Bibasilar dependent atelectatic changes. No pneumothorax. No consolidations to suggest pneumonia. IMPRESSION: No acute pulmonary embolism. Mild layering bilateral pleural effusionswith bibasilar atelectatic changes. Signed: Mei Maldonado MDReport Verified Date/Time: 12/14/2022 04:48:07 SARS-COV2/RT-PCR ([facility])2022-12-13 23:27:08 Test Item Value Reference Range Interpretation Comments SARS-COV2/RT-PCR Negative Negative The SARS-Co V-2 target (test code = nucleic acids a re not [id number]) detected in thi s specimen. Negative result s do not preclude SARS-C oV-2 infection and s hould not be used as the rene e basis for patient managem ent decisions. Nega tive results must be combine d with clinical observ ations, patient history , and epidemiological information. A false negativ e result may occur if a spec imen is improperly terri ected, transported or handled. This SARS CoV-2 test is a rapid, real-time RT-PC R test intended for th e qualitative detection of nu cleic acid from SARS-CoV-2 in a nasopharyngeal swab specimen collected from individuals suspected of CO VID-19 by their healthcar e provider. This test has been authorized by FDA under an EUA for use by authorized laboratories. This test is only authorized for the duration of the declaration that circumstances exist justifying the authorization of emergency use of in vitro diagnostic tests for detection and/or diagnosis of COVID-19 under Section 564(b)(1) of the Federal Food, Drug and Cosmetic Act, 21 U.S.C. 360bbb-3(b)(1), unless the authorization is terminated or revoked sooner. Fact Sheet for Healthcare Providers: https://www.[employer] m/Documents/Xpert%20Xpress%20SARS%20CoV-2/Fact%20Sheets/302-3802%61LHLY-DJS-2%20 HEALTHCARE%20PROVIDERS%20FACT%20SHEET.pdf Fact Sheet for Healthcare Patients: https://www.[employer]/Documents/Xpert%20Xp ress%20SARS%20CoV-2/Fact%20Sheets/302-3801%83BFMJ-GTQ-8%20PATIENT%20FACT%20SHEET .[id number] 23:26:07 Test Item Value Reference Range Interpretation Comments D-DIMER QUANTITATIVE (BEAKER) 1.92 MG/L FEU <0.50 H (test code = 671) Intended Use: The D-Dimer Assay can be used to aid in the diagnosis of Deep Vein Thrombosis (DVT) and Pulmonary Embolism Disease (PED).In patients with low pre- test probability, various studies concerning STA Liatest D-dimer test have reported that with a cutoff value of 0.50 MG/L FEU, the Negative Predictive Value (NPV) regarding the exclusion of thrombosis is within 95-100% range.B-TYPE NATRIURETIC FACTOR (BNP)2022-12-13 22:31:07 Test Item Value Reference Range Interpretation Comments B-TYPE NATRIURETIC PEPTIDE (BEAKER) 356 pg/mL 0-100 H (test code = 700) Research Assistant Professor ID - AMADOR [id number] 22:29:08 Test Item Value Reference Range Interpretation Comments PHOSPHORUS (BEAKER) (test code = 1.7 mg/dL 2.3-4.7 L 604) Research Assistant Professor ID - AMADOR GCOMPREHENSIVE METABOLIC [id number] 22:29:08 Test Item Value Reference Range Interpretation Comments TOTAL PROTEIN 7.1 gm/dL 6.0-8.3 (BEAKER) (test code = 770) ALBUMIN (BEAKER) 3.6 g/dL 3.5-5.0 (test code = 1145) ALKALINE 201 U/L 40-150 H PHOSPHATASE (BEAKER) (test code = 346) BILIRUBIN TOTAL 3.7 mg/dL 0.2-1.2 H (BEAKER) (test code = 377) SODIUM (BEAKER) 140 meq/L 136-145 (test code = 381) POTASSIUM (BEAKER) 3.7 meq/L 3.5-5.1 (test code = 379) CHLORIDE (BEAKER) 104 meq/L 98-107 (test code = 382) CO2 (BEAKER) (test 23 meq/L 22-29 code = 355) BLOOD UREA 11 mg/dL 7-21 NITROGEN (BEAKER) (test code = 354) CREATININE 0.84 mg/dL 0.57-1.25 (BEAKER) (test code = 358) GLUCOSE RANDOM 158 mg/dL 70-105 H (BEAKER) (test code = 652) CALCIUM (BEAKER) 9.3 mg/dL 8.4-10.2 (test code = 697) AST (SGOT) 49 U/L 5-34 H (BEAKER) (test code = 353) ALT (SGPT) 51 U/L 6-55 (BEAKER) (test code = 347) EGFR (BEAKER) 73 Interpretatio n of eGFR (test code = 1092) mL/min/1.[address] age Description sq m Result G1 Maty l or high >=90 G2 Mildly decreased 60-89 G3a Mildl y to moderately 45-5 9 G3b Moderately to s everely 30-44 G4 Severl y decreased 15-29 G5 Kidne y failure <15Reported eGF R is based on the CKD-EPI 202 equation that d oes not use a race coefficientEsti mated GFR is not as accur ate as Creatinine Peggy zapata in predicting glom erular filtration rate . Estimated GFR is not appl icable for dialysis patien ts Research Assistant Professor ID - AMADOR GSpecimen slightly [id number] 22:29:08 Test Item Value Reference Range Interpretation Comments LIPASE (BEAKER) (test code = 749) 76 U/L 8-78 Research Assistant Professor ID - AMADOR GSpecimen slightly [id number] 22:29:07 Test Item Value Reference Range Interpretation Comments MAGNESIUM (BEAKER) (test code = 1.8 mg/dL 1.6-2.6 627) Research Assistant Professor ID - AMADOR GPROTHROMBIN [id number] 22:17:24 Test Item Value Reference Range Interpretation Comments PROTIME (BEAKER) 14.7 seconds 11.9-14.2 H (test code = 759) INR (BEAKER) (test 1.22 See_Comment [Automat ed message] code = 370) The system [employer] generated this result transmitted ref erence range: <=5.90. The reference range was not used to int erpret this result as normal/abnormal . RECOMMENDED COUMADIN/WARFARIN INR THERAPY RANGESSTANDARD DOSE: 2.0 - 3.0 Includes: PROPHYLAXIS for venous thrombosis, systemic embolization; TREATMENT for venous thrombosis and/or pulmonary embolus.HIGH RISK: Target INR is 2.5-3.5 for patients with mechanical heart valves.CBC W/PLT COUNT & AUTO [id number] 22:15:48 Test Item Value Reference Range Interpretation Comments WHITE BLOOD CELL COUNT (BEAKER) 15.9 K/ L 3.5-10.5 H (test code = 775) RED BLOOD CELL COUNT (BEAKER) 4.00 M/ L 3.93-5.22 (test code = 761) HEMOGLOBIN (BEAKER) (test code = 11.7 GM/DL 11.2-15.7 410) HEMATOCRIT (BEAKER) (test code = 36.3 % 34.1-44.9 411) MEAN CORPUSCULAR VOLUME (BEAKER) 91 fL 79-95 (test code = 753) MEAN CORPUSCULAR HEMOGLOBIN 29.3 pg 25.6-32.2 (BEAKER) (test code = 751) MEAN CORPUSCULAR HEMOGLOBIN CONC 32.2 GM/DL 32.2-35.5 (BEAKER) (test code = 752) RED CELL DISTRIBUTION WIDTH 14.5 % 11.7-14.4 H (BEAKER) (test code = 412) PLATELET COUNT (BEAKER) (test 202 K/CU MM 150-450 code = 756) MEAN PLATELET VOLUME (BEAKER) 12.1 fL 9.4-12.3 (test code = 754) NUCLEATED RED BLOOD CELLS 0 /100 WBC 0-0 (BEAKER) (test code = 413) NEUTROPHILS RELATIVE PERCENT 90 % (BEAKER) (test code = 429) LYMPHOCYTES RELATIVE PERCENT 3 % (BEAKER) (test code = 430) MONOCYTES RELATIVE PERCENT 7 % (BEAKER) (test code = 431) EOSINOPHILS RELATIVE PERCENT 0 % (BEAKER) (test code = 432) BASOPHILS RELATIVE PERCENT 0 % (BEAKER) (test code = 437) NEUTROPHILS ABSOLUTE COUNT 14.32 K/ L 1.56-6.13 H (BEAKER) (test code = 670) LYMPHOCYTES ABSOLUTE COUNT 0.41 K/ L 1.18-3.74 L (BEAKER) (test code = 414) MONOCYTES ABSOLUTE COUNT (BEAKER) 1.05 K/ L 0.24-0.36 H (test code = 415) EOSINOPHILS ABSOLUTE COUNT 0.00 K/ L 0.04-0.36 L (BEAKER) (test code = 416) BASOPHILS ABSOLUTE COUNT (BEAKER) 0.02 K/ L 0.01-0.08 (test code = 417) IMMATURE GRANULOCYTES-RELATIVE 0.70 % 0.00-1.00 PERCENT (BEAKER) (test code = 2801) [U] XRAY KNEE 4 OR MORE VWS LEFT [id number] 11:24:00Images acquired, not reported on this accession number.DC PhysiciansCT, CHEST, WITH CONTRAST 2017-12-08 16:25:00FINAL REPORT CT of the chest, abdomen, with [...] lower lobes. No mass or consolidation is identifiedin the aerated portion of the long. No bronchiectasis, or bronchial wall thickening. No liver lesionis identified. No biliary ductal dilatation. The gallbladder [...] or free air. No lymphadenopathy. Osseous structures de monstrate degenerative changes. Impression: Status post gastric banding. There is a tiny hiatal hernia. Distal esophagus appears slightly thick walled, correlate clinically for esophagitis. Correlationwith endoscopy can also be considered. Trace bilateral pleural effusions. Nonspecific distention of the gallbladder. Colonic diverticulosis. Signed: Juliane Hintoneport Verified Date/Time: 12/08/2017 16:25:55 Reading Location: [facility] C013Y CT Body Reading Room CT, ABDOMEN, WITH [id number] 16:25:00Reason for exam:->history of lap band, concern for displacementFINAL REPORT CT of the chest, abdomen, with contrast Clinical History: history of lap band, concern for displacement Technique: CT of the chest and abdomen is performed with intrave nous contrast administration. This exam was performed according to our departmental dose optimization program which includes automated exposure control, adjustment of the mA and/or kV according to patient's size and/or use of iterative reconstructive technique. Comparison Film: Chest radiograph dated A pri2011 Discussion: Visualized thyroid gland is unremarkable. No supraclavicular, axillary, mediastinal or hilar lymphadenopathy. Heart and pericardium are unremarkable. There is a tiny hiatal hernia. Distal esophagus appears mildly thick walled. There are trace bilateral pleural effusions, associ ated with relaxation atelectasis of the adjacent lower lobes. No mass or consolidation is identifiedin the aerated portion of the long. No bronchiectasis, or bronchial wall thickening. No liver lesionis identified. No biliary ductal dilatation. The gallbladder [...] slightly thick walled, correlate clinically for esophagitis. Correlationwith endoscopy can also be considered. Trace bilateral pleural effusions. Nonspecific distention of the gallbladder. Colonic diverticulosis. Signed: Juliane Hinton MDReport Verified Date/Time: 12/08/2017 16:25:55 Reading Location: [facility] B1 C013Y CT Body Reading Room BASI METABOLIC [id number] 07:08:00 Test Item Value Reference Range Interpretation Comments SODIUM (BEAKER) 145 meq/L 136-145 (test code = 381) POTASSIUM (BEAKER) 3.8 meq/L 3.5-5.1 (test code = 379) CHLORIDE (BEAKER) 117 meq/L 98-107 H (test code = 382) CO2 (BEAKER) (test 20 meq/L 22-29 L code = 355) BLOOD UREA NITROGEN 8 mg/dL 7-21 (BEAKER) (test code = 354) CREATININE (BEAKER) 0.82 mg/dL 0.57-1.25 (test code = 358) GLUCOSE RANDOM 72 mg/dL 70-105 (BEAKER) (test code = 652) CALCIUM (BEAKER) 8.3 mg/dL 8.4-10.2 L (test code = 697) EGFR (BEAKER) (test 69 mL/min/1.73 ESTIMA HATTIE GFR IS code = 1092) sq m NOT ACCURATE CREATININE CLEARANCE IN PREDICTING GLOMERULAR FILTRATION RATE . ESTIMATED GFR I S NOT APPLICABLE FOR DIALYSIS PATIEN TS. CBC (HEMOGRAM ONLY)2017-12-08 06:40:00 Test Item Value [...] (BEAKER) (test code = 413) BASIC METABOLIC [id number] 07:18:00 Test Item Value Reference Range Interpretation [...] 697) EGFR (BEAKER) (test 74 mL/min/1.73 ESTIMA HATTIE GFR IS code = 1092) sq m [...] 0-0 (BEAKER) (test code = 413) URINE [id number] 13:00:00 Test Item Value Reference Range Interpretation Comments CULTURE (BEAKER) (test >100,000 col/mL skin code = 1095) caden BASIC METABOLIC [id number] 08:35:00 Test Item Value Reference Range Interpretation [...] 697) EGFR (BEAKER) (test 79 mL/min/1.73 ESTIMA HATTIE GFR IS code = 1092) sq m [...] (test code = 413) VITAMIN B12 AND [id number] 12:04:00 Test Item Value Reference Range Interpretation Comments VITAMIN B12 (BEAKER) (test code = > pg/mL 213-816 H 774) FOLATE (BEAKER) (test code = 362) 16.3 ng/mL >=7.0 [id number] 10:53:00 Test Item Value Reference Range Interpretation [...] L (test code = 2590) BASIC METABOLIC [id number] 07:24:00 Test Item Value Reference Range Interpretation [...] 697) EGFR (BEAKER) (test 70 mL/min/1.73 ESTIMA HATTIE GFR IS code = 1092) sq m [...] (BEAKER) (test code = 413) HEMOGLOBIN AND [id number] 23:13:00 Test Item Value Reference Range Interpretation Comments HEMOGLOBIN (BEAKER) (test code = 7.9 GM/DL 11.2-15.7 L 410) HEMATOCRIT (BEAKER) (test code = 25.8 % 34.1-44.9 L 411) [id number] 10:35:00 Test Item Value Reference Range Interpretation Comments PHOSPHORUS (BEAKER) (test code = 2.1 mg/dL 2.3-4.7 L 604) [id number] 10:35:00 Test Item Value Reference Range Interpretation Comments MAGNESIUM (BEAKER) (test code = 1.9 mg/dL 1.6-2.6 627) BASIC METABOLIC [id number] 10:35:00 Test Item Value Reference Range Interpretation [...] 697) EGFR (BEAKER) (test 69 mL/min/1.73 ESTIMA HATTIE GFR IS code = 1092) sq m [...] (BEAKER) (test code = 413) URINALYSIS W/ [id number] 08:24:00 Test Item Value Reference Range Interpretation [...] Urine, Clean Catch = 2795) BASIC METABOLIC [id number] 03:41:00 Test Item Value Reference Range Interpretation [...] 697) EGFR (BEAKER) (test 67 mL/min/1.73 ESTIMA HATTIE GFR IS code = 1092) sq m NOT ACCURATE CREATININE CLEARANCE IN PREDICTING GLOMERULAR FILTRATION RATE . ESTIMATED GFR I S NOT APPLICABLE FOR DIALYSIS PATIEN TS. HEPATIC FUNCTION [id number] 03:41:00 Test Item Value Reference Range Interpretation [...] slightly (test code = 347) hemolyzed PROTHROMBIN [id number] 02:41:00 Test Item Value Reference Range Interpretation [...] mechanical heart valves.CBC W/PLT COUNT & AUTO [id number] 02:38:00 Test Item Value Reference Range Interpretation [...] % 0-1 PERCENT (BEAKER) (test code = 0582)
[2023-08-08] MEDS ORDERED: FAMOTIDINE 20 MG/2 ML VIAL IV ONE (05:09)
[2023-08-08] MEDS ORDERED: HYDROMORPHONE HCL 0.5 MG/0.5 ML INJ ONE ×2 (05:09→07:44)
[2023-08-08] MEDS ORDERED: NA CHLORIDE 0.9% 1,000 ML ONE ×2 (05:09→07:19)
[2023-08-08] MEDS ORDERED: ONDANSETRON 4 MG/2 ML VIAL ONE (05:09)
[2023-08-08 05:18] LABS: Absolute Lymphocytes (CBC) 1.9 K/uL (0.7-4.9); Hematocrit 36.9 % (36.0-45.0); Lymphocytes % 10.8 % (15.3-44.8); MCV 89.1 fL (80-100); MPV 9.9 fL (7.6-11.3); Platelets 296 thou/uL (152-406); RBC Red Blood Cell Count 4.14 M/uL (3.86-4.86)
[2023-08-08 05:36] LABS: Albumin 3.5 g/dL (3.4-5.0); Bilirubin Total 1.3 mg/dL (0.2-1.0); Potassium 3.2 mEq/L (3.5-5.1); Protein, Total 7.6 g/dL (6.4-8.2)
[2023-08-08 05:47] LABS: Calcium Oxalate Crystals- Ur Few /HPF (None Seen); Specific Gravity 1.021 (1.005-1.030); Urine Bacteria <20 /HPF (<20); Urine Bilirubin NEGATIVE (Negative); Urine Blood Negative (Negative); Urine Clarity Turbid (Clear); Urine Color Yellow (Yellow); Urine Glucose NEGATIVE (Negative); Urine Mucus Slight /HPF (None Seen); Urine Protein 1+ (Negative); Urine RBC <5 /HPF (None Seen); Urine Urobilinogen 1+ (Normal); Urine WBC Clump Rare /HPF (None Seen); Urine pH 5.5 (5.0-7.0)
--- NOTE | 2023-08-08 06:52 | ER ---
Nurse's Notes [facility] Name: Ping Flores Age: 73 yrs Sex: Female : 1950 Arrival Date: 08/08/2023 Time: 04:16 Bed 6 Private MD: Diagnosis: Portal venous air;Abdominal pain, unspecified;Elevated bilirubin;Nonspecific elevation of levels of transaminase and lactic acid dehydrogenase [LDH];Hypokalemia;Biliary acute pancreatitis Presentation: 08/08 04:42 Chief complaint: Patient states: I am having upper abdominal pain that radiates to my jb4 back. I took tums about 1am when the pain started. It did not help. Coronavirus screen: At this time, the client does not indicate any symptoms associated with coronavirus-19. Ebola Screen: No symptoms or risks identified at this time. Initial Sepsis Screen: Does the patient meet any 2 criteria? No. Patient's initial sepsis screen is negative. Does the patient have a suspected source of infection? Yes: Acute abdominal pain. Risk Assessment: Do you want to hurt yourself or someone else? Patient reports no desire to harm self or others. Onset of symptoms was August 08, 2023. Transition of care: patient was not received from another setting of care. 04:42 Method Of Arrival: Wheelchair jb4 04:42 Acuity: DEBBIE 3 jb4 Historical: - Allergies: 04:46 Morphine; jb4 - PMHx: 04:46 bleeding ulcers; Hypothyroidism; kidney cancer; Lupus erythematosus; Renal Disease; jb4 - PSHx: 04:46 cataract; jb4 04:47 Cholecystectomy; jb4 - Immunization history:: Adult Immunizations up to date. - Social history:: Smoking status: Patient denies any tobacco usage or history of. Screenin:09 [facility] ED Fall Risk Assessment (Adult) History of falling in the last 3 months, kd3 including since admission No falls in past 3 months (0 pts) Confusion or Disorientation No (0 pts) Intoxicated or Sedated No (0 pts) Impaired Gait No (0 pts) Mobility Assist Device Used No (0 pt) Altered Elimination No (0 pt) Score/Fall Risk Level 0 - 2 = Low Risk Maintained a safe environment. Abuse screen: Denies threats or abuse. Denies injuries from another. Nutritional screening: No deficits noted. Tuberculosis screening: No symptoms or risk factors identified. Assessment: 05:08 General: Appears uncomfortable, Behavior is anxious. Pain: Complains of pain in kd3 abdomen. GI: Bowel sounds present X 4 quads. Abdomen is tender to palpation in epigastric area. 10:01 Reassessment: Patient appears in no apparent distress at this time. No changes from ld1 previously documented assessment. Patient and/or family updated on plan of care and expected duration. Pain level reassessed. Patient states symptoms have not improved. 22:49 Reassessment: Lab called and stated that all 4 blood cultures bottles positive for GRAM cm10 NEGATIVE RODS AND GRAM POSITIVE COCCI IN PAIRS AND CHAINS. Pt currently at [facility]. [facility] notified and RONAK Monte in MICU given results. Vital Signs: 04:42 BP 154 / 61; Pulse 74; Resp 24; Pulse Ox 100% ; Weight 113.4 kg; Height 5 ft. 3 in. ; jb4 Pain 10/10; 05:09 Temp 98.1(O); kd3 05:45 BP 153 / 79; Pulse 78; Resp 20; Pulse Ox 100% on R/A; kd3 06:37 BP 186 / 105; Pulse 85; Resp 19; Pulse Ox 95% on R/A; kd3 06:57 BP 194 / 78; Pulse 87; Resp 18; Temp 97.7(O); Pulse Ox 96% on R/A; kd3 08:30 BP 195 / 91; Pulse 89; Resp 18; Pulse Ox 97% on R/A; ld1 10:01 BP 186 / 99; Pulse 84; Resp 18; Pulse Ox 96% on R/A; Pain 7/10; ld1 04:42 Body Mass Index 44.29 (113.40 kg, 160.02 cm) jb4 04:42 Pain Scale: Adult jb4 10:01 Pain Scale: Adult ld1 ED Course: 04:21 Patient arrived in ED. ag3 04:24 Gabe Jones DO is Attending Physician. ms3 04:30 Inserted saline lock: 20 gauge in right antecubital area, using aseptic technique. kd3 Blood collected. 04:42 Sunny Shaw, RONAK is Primary Nurse. jb4 04:46 Triage completed. jb4 04:47 Arm band placed on right wrist. jb4 05:08 CBC with Diff Sent. kd3 05:08 CMP Sent. kd3 05:08 Lipase Sent. kd3 05:09 Patient has correct armband on for positive identification. Provided Education on: . kd3 05:49 CT Abd/Pelvis - Without Contrast In Process Unspecified. EDMS 06:42 attempted to initiate a transfer with [facility] placed on automatic eb hold than disconnected at 4 minutes. 06:48 initiated a transfer with Gavino Ba from the [facility] [place]. eb 06:57 Inserted saline lock: 20 gauge in left antecubital area, using aseptic technique. Blood kd3 collected. 07:04 Ptt, Activated Sent. ph 07:04 Protime (+inr) Sent. ph 07:04 Lactate w/ 2H reflex if indic. Sent. ph 07:04 Blood Culture Adult (2) Sent. ph 07:06 per Gavino Mejia [facility] with have to decline the patient in transfer due to eb being at capacity/ they also can't take the patient into the ER due to saturation. 07:16 initiated a transfer with Gavino Jain from the [facility] Transfer [facility]. eb 07:32 Attending Physician role handed off by Gabe Jones DO rn 07:32 Yusef Melchor MD is Attending Physician. rn 07:[address] Graham the hospitalist community support professional for [facility] with Dr. Melchor for eb patient transfer consultation. 07:46 administrative approval given by Jana Heredia/ patient has been accepted to [facility] 8B [id number]/ Dr. Wiley Graham has accepted the patient in transfer/ report to be called to [phone]. 08:21 [facility] Called for [facility]. eb 10:01 No provider procedures requiring assistance completed. Patient transferred, IV remains ld1 in place. Administered Medications: 05:08 Drug: NS 0.9% IV 1000 ml IV at 1 bolus Per protocol; 1000 mL bolus Route: IV; Rate: 1 kd3 bolus; Site: right antecubital; 05:08 Drug: Famotidine IVP 20 mg IVP once; dilute with 10 mL 0.9% NaCl; give over 2 minutes kd3 Route: IVP; Site: right antecubital; 05:08 Drug: Ondansetron IVP 4 mg IVP once; over 2 minutes Route: IVP; Site: right antecubital;kd3 05:08 Drug: HYDROmorphone IVP 0.5 mg IVP once Route: IVP; Site: right antecubital; kd3 06:57 Follow up: Response: No adverse reaction; Pain is decreased kd3 07:16 Drug: Piperacillin-Tazobactam IVPB 3.375 grams IVPB once over 60 mins; (mix in NS 100 ld1 mL) Route: IVPB; Infused Over: 60 mins; Site: left antecubital; 07:16 Drug: Potassium Chloride IV 20 mEq IV at calculated rate once; administer over 1-2 ld1 hours Route: IV; Rate: calculated rate; Site: right antecubital; 07:34 Drug: HYDROmorphone IVP 0.5 mg IVP once Route: IVP; Site: right antecubital; ld1 Medication: 05:09 VIS not applicable for this client. kd3 Outcome: 06:51 ER care complete, transfer ordered by . ms3 10:02 Transferred by ground EMS ld1 10:02 Condition: stable 10:02 Instructed on the need for transfer, 10:02 Patient left the ED. ld1 Signatures: Dispatcher [employer] EDMS Yusef Melchro MD MD rn Hall, Patricia RN Sunny Ramires ph, RN RN jada4 Winter Castellon Alice 3 Gabe Jones DO DO ms3 Chloe Jones RN RN ld1 Stacy Arce RN RN kd3 Darcie Whitaker RN RN cm10
--- NOTE | 2023-08-08 06:52 | EDPHYS ---
Physician Documentation [facility] Name: Ping Flores Age: 73 yrs Sex: Female : 1950 Arrival Date: 08/08/2023 Time: 04:16 Bed 6 Private MD: ED Physician Yusef Melchor HPI: 08/08 05:16 This 73 yrs old Female presents to ER via Wheelchair with complaints of ms3 Abdominal Pain. 05:16 73-year-old female with past medical history of peptic ulcer disease, hypothyroidism, ms3 kidney cancer, lupus, kidney disease presents to the emergency department for upper abdominal pain, chest pain that began tonight. Patient states pain is 10/10 described as being sharp. Patient endorses nausea and chills. Patient denies vomiting, fevers, cough. Patient denies any alleviating or inciting factors. Historical: - Allergies: 04:46 Morphine; jb4 - PMHx: 04:46 bleeding ulcers; Hypothyroidism; kidney cancer; Lupus erythematosus; Renal Disease; jb4 - PSHx: 04:46 cataract; jb4 04:47 Cholecystectomy; jb4 - Immunization history:: Adult Immunizations up to date. - Social history:: Smoking status: Patient denies any tobacco usage or history of. ROS: 05:16 Neck: Negative for injury, pain, and swelling, Cardiovascular: Negative for chest pain, ms3 and palpitations. Respiratory: Negative for shortness of breath, cough, wheezing, and pleuritic chest pain, 05:16 Constitutional: Positive for chills, Negative for fever, 05:16 Abdomen/GI: Positive for abdominal pain, nausea, 05:16 All other systems are negative, Exam: 05:16 Constitutional: This is a well developed, well nourished patient who is awake, alert, ms3 and in no acute distress. Head/Face: Normocephalic, atraumatic. Neck: Trachea midline, no cervical lymphadenopathy. Supple, full range of motion without nuchal rigidity, or vertebral point tenderness. No Meningismus. Chest/axilla: Normal chest wall appearance and motion. Nontender with no deformity. Cardiovascular: Regular rate and rhythm with a normal S1 and S2. No gallops, murmurs, or rubs. Normal PMI, no JVD. No pulse deficits. Respiratory: Lungs have equal breath sounds bilaterally, clear to auscultation and percussion. No rales, rhonchi or wheezes noted. No increased work of breathing, no retractions or nasal flaring. 05:16 Skin: Warm, dry with normal turgor. Normal color with no rashes, no lesions, and no evidence of cellulitis. MS/ Extremity: Pulses equal, no cyanosis. Neurovascular intact. Full, normal range of motion. 05:16 Abdomen/GI: Inspection: abdomen appears normal, Bowel sounds: normal, Palpation: moderate abdominal tenderness, in all quadrants, 07:14 ECG was reviewed by the Attending Physician. ms3 Vital Signs: 04:42 BP 154 / 61; Pulse 74; Resp 24; Pulse Ox 100% ; Weight 113.4 kg; Height 5 ft. 3 in. ; jb4 Pain 10/10; 05:09 Temp 98.1(O); kd3 05:45 BP 153 / 79; Pulse 78; Resp 20; Pulse Ox 100% on R/A; kd3 06:37 BP 186 / 105; Pulse 85; Resp 19; Pulse Ox 95% on R/A; kd3 06:57 BP 194 / 78; Pulse 87; Resp 18; Temp 97.7(O); Pulse Ox 96% on R/A; kd3 08:30 BP 195 / 91; Pulse 89; Resp 18; Pulse Ox 97% on R/A; ld1 10:01 BP 186 / 99; Pulse 84; Resp 18; Pulse Ox 96% on R/A; Pain 7/10; ld1 04:42 Body Mass Index 44.29 (113.40 kg, 160.02 cm) jb4 04:42 Pain Scale: Adult jb4 10:01 Pain Scale: Adult ld1 MDM: 04:44 Patient medically screened. ms3 05:16 Differential diagnosis: bowel obstruction, myocardia ischemia or infarction, ms3 non-specific abd pain, pancreatitis. 06:42 Data reviewed: vital signs, nurses notes, lab test result(s), radiologic studies, CT ms3 scan, and as a result, I will transfer patient. Consideration of Admission/Observation Will transfer patient. I considered the following discharge prescriptions or medication management in the emergency department Medications were administered in the Emergency Department. See MAR. Discussion of test interpretation with radiology: I had a discussion with radiology regarding a test interpretation. Discussed case with Radiology- patient with portal venous gas. 07:12 ED course: [facility] declines secondary to capacity.. ms3 07:43 ED course: Patient accepted for transfer to [facility]. rn 08:02 ED course: Pain improved after second Dilaudid dose. rn 08/08 04:45 Order name: CBC with Diff; Complete Time: 06:14 ms3 08/08 04:45 Order name: CMP; Complete Time: 06:14 ms3 08/08 04:45 Order name: Lipase; Complete Time: 06:14 ms3 08/08 04:45 Order name: Urinalysis w/ reflexes; Complete Time: 06:14 ms3 08/08 05:16 Order name: Troponin High Sensitivity ms3 08/08 06:40 Order name: Blood Culture Adult (2) ms3 08/08 06:40 Order name: Lactate w/ 2H reflex if indic.; Complete Time: 07:38 ms3 08/08 06:40 Order name: Protime (+inr); Complete Time: 07:31 ms3 08/08 06:40 Order name: Ptt, Activated; Complete Time: 07:31 ms3 08/08 04:45 Order name: CT Abd/Pelvis - Without Contrast ms3 08/08 06:40 Order name: EKG; Complete Time: 07:02 ms3 08/08 04:45 Order name: IV Saline Lock; Complete Time: 05:08 ms3 08/08 04:45 Order name: Labs collected and sent; Complete Time: 05:08 ms3 08/08 06:40 Order name: Accucheck; Complete Time: 06:57 ms3 08/08 06:40 Order name: Cardiac monitoring; Complete Time: 06:57 ms3 08/08 06:40 Order name: EKG - Nurse/Tech; Complete Time: 07:11 ms3 08/08 06:40 Order name: IV Saline Lock - Large Bore; Complete Time: 06:57 ms3 08/08 06:40 Order name: O2 Per Protocol; Complete Time: 06:41 ms3 08/08 06:40 Order name: O2 Sat Monitoring; Complete Time: 06:41 ms3 08/08 06:40 Order name: Vital Signs; Complete Time: 06:41 ms3 EC:14 Rate is 90 beats/min. Rhythm is regular. Right axis deviation noted. [place] interval is ms3 normal. QRS interval is normal. Clinical impression: NSR w/ Non-specific ST/T Changes. Interpreted by me. Reviewed by me. Administered Medications: 05:08 Drug: NS 0.9% IV 1000 ml IV at 1 bolus Per protocol; 1000 mL bolus Route: IV; Rate: 1 kd3 bolus; Site: right antecubital; 05:08 Drug: Famotidine IVP 20 mg IVP once; dilute with 10 mL 0.9% NaCl; give over 2 minutes kd3 Route: IVP; Site: right antecubital; 05:08 Drug: Ondansetron IVP 4 mg IVP once; over 2 minutes Route: IVP; Site: right antecubital;kd3 05:08 Drug: HYDROmorphone IVP 0.5 mg IVP once Route: IVP; Site: right antecubital; kd3 06:57 Follow up: Response: No adverse reaction; Pain is decreased kd3 07:16 Drug: Piperacillin-Tazobactam IVPB 3.375 grams IVPB once over 60 mins; (mix in NS 100 ld1 mL) Route: IVPB; Infused Over: 60 mins; Site: left antecubital; 07:16 Drug: Potassium Chloride IV 20 mEq IV at calculated rate once; administer over 1-2 ld1 hours Route: IV; Rate: calculated rate; Site: right antecubital; 07:34 Drug: HYDROmorphone IVP 0.5 mg IVP once Route: IVP; Site: right antecubital; ld1 Disposition Summary: 08/08/23 06:51 Transfer Ordered Notes: Reason: Higher level of care ms3 Condition: Stable ms3 Problem: new ms3 Symptoms: are unchanged ms3 Transfer Location: [facility](08/08/23 07:12) ms3 Accepting Physician: Wiley Cleaning [facility](08/08/23 10:02) ld1 Diagnosis - Portal venous air ms3 - Abdominal pain, unspecified ms3 - Elevated bilirubin ms3 - Nonspecific elevation of levels of transaminase and lactic acid dehydrogenase [LDH] ms3 - Hypokalemia ms3 - Biliary acute pancreatitis ms3 Forms: - Medication Reconciliation Form ms3 - SBAR form ms3 Critical care time excluding procedures: 07:02 Critical care time: Bedside Care: 30 minutes, Consultation: 10 minutes. Total time: 40 ms3 minutes Signatures: Dispatcher [employer] EDYusef Singh MD MD rn Bryson, James, RN RN jb4 Winter Castellon Marcus, DO DO ms3 Chloe Jones, RN RN ld1 Stacy Arce, RN RN kd3 Corrections: (The following items were deleted from the chart) 05:17 05:16 73-year-old female with past medical history of peptic ulcer disease, ms3 hypothyroidism, kidney cancer, lupus, kidney disease presents to the emergency department for upper abdominal pain, chest pain. Patient states pain is 10/10 described as being sharp. Patient endorses nausea and chills. Patient denies vomiting, fevers, cough. Patient denies any alleviating or inciting factors. ms3 06:52 06:51 ms3 ms3 06:53 06:52 ms3 ms3 07:12 06:51 [facility] ms3 ms3 07:12 06:53 ms3 ms3 08:18 07:12 ms3 eb 10:02 08:18 Wiley Cleaning [facility] ld1
[2023-08-08] MEDS ORDERED: PIPERACIL/TAZO 3.375 GM VIAL IV ONE (07:19)
[2023-08-08] MEDS ORDERED: NA CHLORIDE 0.9% 100 ML ONE (07:19)
[2023-08-08] MEDS ORDERED: KCL 20 MEQ/100 mL IVPB 100 ML IV ONE (07:19)
[2023-08-08 07:21] LABS: Protime INR 1.05
[2023-08-08 10:34] VITALS: TEMP 97.7
[2023-08-08 10:36] VITALS: BP 186/99; O2SAT 96
--- NOTE | 2023-08-10 12:35 | EKG ---
Test Date: 2023-08-08 Test Time: 07:11:33 Playground Official: IFEOMA MEASUREMENT RESULTS: Intervals: Rate: 90 MS: 142 QRSD: 98 QT: 384 QTc: 469 [place]: P: -5 MS: 142 QRS: 116 T: -28 INTERPRETIVE STATEMENTS: Normal sinus rhythm Right axis deviation T wave abnormality, consider inferior ischemia Abnormal ECG Compared to ECG 12/13/2022 08:05:16 Right-axis deviation now present T-wave abnormality now present Possible ischemia now present Electronically Signed On 08-10-23 12:31:29 CDT by Ozzy Winter
--- NOTE | 2023-08-10 15:06 | RAD REPORT ---
EXAM DESCRIPTION: CT abdomen and pelvis without intravenous contrast CLINICAL HISTORY: 73 years Female ABD PAIN status post cholecystectomy in December 2022 TECHNIQUE: Axial CT imaging of the abdomen and pelvis was performed without oral or intravenous cont rast. Sagittal and coronal reconstructed images were then performed. The CT study is performed acco rding to ALARA (as low as reasonably achievable) or ALARA/IMAGE GENTLY, with automatic adjustment of mA and/or kV according to patient size. Performed on: 08/08/2023 at 5:40 AM COMPARISON: CT abdomen and pelvis with IV contrast performed on 12/11/2022. FINDINGS: Lung bases: The lung bases are clear. There is minimal bibasilar atelectasis and/or fibros is. There are postsurgical changes consistent with a gastric lap band and there is a small gastric po uch and/or small hiatal hernia present. The heart is top normal in size. Liver: The liver is enlarged and measures 22 cm in craniocaudal dimension. There are branching linear lucencies within the peripheral aspect of the left hepatic lobe and peripheral aspect of the right h epatic lobe which are concerning for portal venous gas. Pneumobilia is also a consideration in light of the fact there is evidence of air in the common bile duct at the level of the young hepatis. No ad ditional focal hepatic abnormalities are identified. Liver attenuation is within normal limits. Spleen: The spleen is normal in size, configuration and attenuation. No focal splenic abnormalities a re appreciated on this unenhanced scan. Gallbladder and bile duct: The gallbladder is surgically absent. There is dilatation of the common bile duct. There are lucencies in the region of the common bile duct consistent with pneumobilia. Pancreas: The pancreas is grossly normal in size and configuration. There is minimal infiltration of the fat in the region of the pancreatic head which is nonspecific but could be related to early acute pancreatitis and/or chronic inflammatory changes following cholecystectomy. Adrenal Glands: The adrenal glands are normal in size and configuration. Kidneys: The kidneys are normal in size and configuration. There is no evidence of hydronephrosis. Th ere are renal vascular calcifications particularly on the right side. No janine nephrolithiasis is herman ntified. No focal renal abnormalities are identified. Stomach: There are postsurgical changes of the stomach consistent with a gastric lap band and gastric sleeve. There is a small gastric pouch and/or small hiatal hernia. Bowel: The bowel gas pattern is non specific and non obstructive. There is occasional colonic diverti culosis. There is no evidence of pneumatosis. Appendix: The appendix is normal. Free air: There is no evidence of free air. Free fluid: There is no evidence of free fluid. Vasculature: The aorta is normal in caliber and contour. There are very mild atherosclerotic calcific ations along the abdominal aorta. The inferior vena cava is grossly unremarkable. Lymphadenopathy: No pathologic lymphadenopathy is identified. Bladder: The bladder is incompletely distended on this examination. and smooth in contour. Reproductive: The uterus is grossly within normal limits. Bones: No acute osseous abnormalities are identified. There are mild degenerative changes of the thor acolumbar spine. Soft tissues: No acute soft tissue abnormalities are identified. IMPRESSION: 1. There are branching linear lucencies within the peripheral aspect of the left hepat ic lobe and peripheral aspect of the right hepatic lobe which are concerning for portal venous gas. P neumobilia is also a consideration in light of the fact there is evidence of air in the common bile d uct at the level of the young hepatis. 2. There is minimal infiltration of the fat in the region of the pancreatic head which is nonspecif ic but could be related to early acute pancreatitis and/or chronic inflammatory changes following cho lecystectomy. 3. Remote gastric lap band and gastric sleeve. There is a small gastric pouch and/or small hiatal h ernia present. 4. Hepatomegaly. 5. Occasional colonic diverticulosis. These potentially critical findings were discussed with Dr. Gabe Jones on 08/08/2023 at 6:40 AM centr al time. Electronically signed by: Richelle Mota DO 08/08/2023 6:50 AM CDT Due to temporary technical issues with the PACS/Fluency reporting system, reports are being signed by the in house radiologist without review as a courtesy to ensure prompt reporting. The interpreting r adiologist is fully responsible for the content of the report.
== END 2023-08-08 10:02 | disposition short-term general hospital (02) ==
LOC: ER 04:16
DX: Q26.5 Anomalous portal venous connection (principal); E80.6 Other disorders of bilirubin metabolism; R74.01 Elevation of levels of liver transaminase levels; R74.02 Elevation of levels of lactic acid dehydrogenase [LDH]; E87.6 Hypokalemia; K85.10 Biliary acute pancreatitis without necrosis or infection; E03.9 Hypothyroidism, unspecified; Z85.528 Personal history of other malignant neoplasm of kidney; Z88.5 Allergy status to narcotic agent
CPT/HCPCS: 87040 ×2; 85025; 81001; 36415; 87205 ×4; 85610; 83605; 85730; 84484; 83690; 80053; 74176; 99285; J3480; J2543; J1170 ×2; J2405; J7030 ×2; 87077; 87186; 93005

== ENCOUNTER 2024-11-03 15:11 | Emergency (ER) | payer OTHER ==
--- NOTE | 2024-11-03 15:59 | RAD REPORT ---
EXAMINATION: CT HEAD WITHOUT CONTRAST CT CERVICAL SPINE WITHOUT CONTRAST CLINICAL INDICATION: Head and neck injury status post fall. Head and neck pain TECHNIQUE: Axial CT images from the skull base to the vertex without intravenous contrast. Axial CT i mages through the cervical spine were obtained without intravenous contrast. Sagittal and coronal reformatted images were created from the data set. Coronal and sagittal reformatted images were creat ed from the data set. One or more of the following dose reduction techniques were used: Automated exposure control, adjustment of the mA and/or kV according to patient size, and/or iterative reconstr uction. Unless otherwise specified, incidental findings do not require dedicated imaging follow-up. [id number]. Comparison: none FINDINGS: An intracranial bleed is not seen. Ventricles are normal in caliber. No significant hypodensity within the brain No extra-axial fluid collection. No fluid within the sinuses/mastoids No fracture or dislocation is seen involving the cervical spine. IMPRESSION: No acute intracranial abnormality noted A cervical fracture is not seen. If the patient continues to have symptoms to suggest acute DISPLAY ASSOCIATE/spinal pathology then MRI would be rec ommended
--- NOTE | 2024-11-03 16:02 | RAD REPORT ---
EXAMINATION: CT MAXILLOFACIAL WITHOUT CONTRAST CLINICAL INDICATION: Facial pain status post fall TECHNIQUE: Axial images were obtained through the facial bones and orbits without intravenous contras t. Sagittal and coronal reconstructions were created from the data. One or more of the following dose reduction techniques were used: Automated exposure control, adjustment of the mA and/or kV accor ding to patient size, and/or iterative reconstruction. Unless otherwise specified, incidental findings do not require dedicated imaging follow-up. COMPARISON: No prior exam. FINDINGS: No fracture seen. No TMJ dislocation. Fluid within the sinuses/mastoids not seen. The globes are intact. Nasal septum deviated towards the left.. IMPRESSION: No fracture visualized
--- NOTE | 2024-11-03 16:05 | RAD REPORT ---
Exam:Ankle Left 3 View HISTORY: left ankle pain FINDINGS: Mildly displaced lateral malleolar fracture. No dislocation Osteoporosis. Soft tissue swelling
--- NOTE | 2024-11-03 16:06 | RAD REPORT ---
Exam:Knee Left 2 View HISTORY: Left knee pain FINDINGS: Limited two-view series obtained. Marked osteoarthritis No fracture or dislocation seen If the patient continues to have symptoms to suggest an occult fracture, ligamentous or meniscal inju ry then MRI would be recommended
--- NOTE | 2024-11-03 16:11 | EDPHYS ---
Physician Documentation [facility] Name: Ping Flores Age: 74 yrs Sex: Female : 1950 Arrival Date: 11/03/2024 Time: 15:11 Bed 13 Private MD: ED Physician Iker Hester HPI: 11/03 15:25 74-year-old female with history of kidney cancer, lupus, prior bleeding ulcers now in a sp3 motorized wheelchair presents with mechanical injury where motorized wheelchair was accidentally removed and patient fell out of the seat face first onto the floor. Patient reports hitting her face on the left side as well as injury to the left ankle and left knee. She denies loss of consciousness or neck pain. She also denies chest pain, back pain, abdominal pain, other extremity pain or any other injury. Remainder of ROS negative.. Historical: - Allergies: 15:24 Morphine; ko1 - PMHx: 15:24 bleeding ulcers; Hypothyroidism; kidney cancer; Renal Disease; Lupus erythematosus; ko1 - PSHx: 15:24 cataract; Cholecystectomy; ko1 - Immunization history:: Adult Immunizations unknown. - Infectious Disease History:: Denies. - Social history:: Smoking status: Patient denies any tobacco usage or history of. ROS: 15:26 Constitutional: Negative for fever, chills, and weight loss, Eyes: Negative for injury, sp3 pain, redness, and discharge, Neck: Negative for injury, pain, and swelling, Cardiovascular: Negative for chest pain, palpitations, and edema, Respiratory: Negative for shortness of breath, cough, wheezing, and pleuritic chest pain, Abdomen/GI: Negative for abdominal pain, nausea, vomiting, diarrhea, and constipation, Back: Negative for injury and pain, Skin: Negative for injury, rash, and discoloration, Psych: Negative for depression, anxiety, suicide ideation, homicidal ideation, and hallucinations, Allergy/Immunology: Negative for hives, rash, and allergies, Endocrine: Negative for neck swelling, polydipsia, polyuria, polyphagia, and marked weight changes, Hematologic/Lymphatic: Negative for swollen nodes, abnormal bleeding, and unusual bruising, 15:26 All other systems are negative, Exam: 15:27 Constitutional: This is a well developed, well nourished patient who is awake, alert, sp3 and in no acute distress. Eyes: Pupils equal round and reactive to light, extra-ocular motions intact. Lids and lashes normal. Conjunctiva and sclera are non-icteric and not injected. Cornea within normal limits. Periorbital areas with no swelling, redness, or edema. ENT: Nares patent. No nasal discharge, no septal abnormalities noted. External auditory canals are clear. Oropharynx with no redness, swelling, or masses, exudates, or evidence of obstruction, uvula midline. Mucous membranes moist. Neck: Trachea midline, no thyromegaly or masses palpated, and no cervical lymphadenopathy. Supple, full range of motion without nuchal rigidity, or vertebral point tenderness. No Meningismus. Chest/axilla: Normal chest wall appearance and motion. Nontender with no deformity. No lesions are appreciated. Cardiovascular: Regular rate and rhythm with a normal S1 and S2. No gallops, murmurs, or rubs. Normal PMI, no JVD. No pulse deficits. Respiratory: Lungs have equal breath sounds bilaterally, clear to auscultation and percussion. No rales, rhonchi or wheezes noted. No increased work of breathing, no retractions or nasal flaring. Abdomen/GI: Soft, non-tender, with normal bowel sounds. No distension or tympany. No guarding or rebound. No evidence of tenderness throughout. Back: No spinal tenderness. No costovertebral tenderness. Full range of motion. Skin: Warm, dry with normal turgor. Normal color with no rashes, no lesions, and no evidence of cellulitis. Neuro: Awake and alert, GCS 15, oriented to person, place, time, and situation. Cranial nerves II-XII grossly intact. Motor strength 5/5 in all extremities. Sensory grossly intact. Cerebellar exam normal. Normal gait. Psych: Awake, alert, with orientation to person, place and time. Behavior, mood, and affect are within normal limits. 15:27 Head/face: Swelling and contusions to the left zygomatic arch, periorbital and forehead areas. No neck pain on midline palpation or step-offs. Patient freely moving neck without difficulty. Ocular exam normal with no anterior chamber hyphema.. Vital Signs: 15:15 BP 173 / 54; Pulse 72; Resp 16; Temp 98; Pulse Ox 100% on R/A; ko1 16:16 BP 151 / 57; Pulse 74; Resp 16; Pulse Ox 100% ; ko1 MDM: 15:14 Medical Screening Exam initiated sp3 15:28 Data reviewed: vital signs, nurses notes, radiologic studies. ED course: 74-year-old sp3 female with mechanical fall with facial contusions and left ankle and knee pain. Differential diagnosis includes sprain versus contusion versus fracture. Will obtain CT scan of the head, facial bones, C-spine and x-rays of the left ankle and left knee. Disposition pending workup and patient course. Vital signs are normal. I do not believe patient had a medical prodrome prior to the event and was truly due to a mechanical nature secondary to the motorized wheelchair being accidentally activated.. 16:10 ED course: All CT scans and x-rays are negative. We will safely discharge patient home sp3 with left ankle sprain and facial contusions.. 11/03 15:15 Order name: CT Head C Spine; Complete Time: 16:10 sp3 11/03 15:15 Order name: CT Facial Bones W/O Con; Complete Time: 16:10 sp3 11/03 15:15 Order name: Ankle Left 3 View XRAY; Complete Time: 16:10 sp3 11/03 15:15 Order name: Knee Left 2 View XRAY; Complete Time: 16:10 sp3 Administered Medications: No medications were administered Disposition Summary: 11/03/24 16:11 Discharge Ordered Notes: Location: Home sp3 Condition: Stable sp3 Diagnosis - Facial contusion, mechanical fall, left ankle sprain, left knee sprain sp3 Followup: sp3 - With: Private Physician - When: Upon discharge from the Emergency Department - Reason: Recheck today's complaints Discharge Instructions: - Discharge Summary Sheet sp3 - Ankle Sprain sp3 - Facial or Scalp Contusion sp3 Forms: - Medication Reconciliation Form sp3 - Antibiotic Education sp3 - Prescription Opioid Use sp3 - Patient Portal Instructions sp3 - Leadership Thank You Letter sp3 Signatures: Dispatcher [employer] Iker John MD MD sp3 Stephanie Monet, RN RN ko1
--- NOTE | 2024-11-03 16:11 | ER ---
Nurse's Notes [facility] Name: Ping Flores Age: 74 yrs Sex: Female : 1950 Arrival Date: 11/03/2024 Time: 15:11 Bed 13 Private MD: Diagnosis: Facial contusion, mechanical fall, left ankle sprain, left knee sprain Presentation: 11/03 15:15 Chief complaint: EMS states: patient fell forward from motorized chair, complaining of ko1 left knee and lower leg pain. Coronavirus screen: At this time, the client does not indicate any symptoms associated with coronavirus-19. Ebola Screen: No symptoms or risks identified at this time. Initial Sepsis Screen: Does the patient meet any 2 criteria? No. Patient's initial sepsis screen is negative. Does the patient have a suspected source of infection? No. Patient's initial sepsis screen is negative. Risk Assessment: Do you want to hurt yourself or someone else? Patient reports no desire to harm self or others. Onset of symptoms was November 03, 2024. 15:15 Method Of Arrival: EMS: [facility] ko1 15:15 Acuity: DEBBIE 3 ko1 Triage Assessment: 15:24 General: Appears in no apparent distress. uncomfortable, Behavior is calm, cooperative, ko1 appropriate for age. Pain: Complains of pain in left leg. EENT: No deficits noted. Neuro: No deficits noted. Cardiovascular: No deficits noted. Respiratory: No deficits noted. GI: No deficits noted. : No deficits noted. Derm: Bruising that is brown, yellow, on right leg and left leg. Musculoskeletal: No deficits noted. Historical: - Allergies: 15:24 Morphine; ko1 - PMHx: 15:24 bleeding ulcers; Hypothyroidism; kidney cancer; Renal Disease; Lupus erythematosus; ko1 - PSHx: 15:24 cataract; Cholecystectomy; ko1 - Immunization history:: Adult Immunizations unknown. - Infectious Disease History:: Denies. - Social history:: Smoking status: Patient denies any tobacco usage or history of. Screenin:25 [facility] ED Fall Risk Assessment (Adult) History of falling in the last 3 months, ko1 including since admission Yes- single mechanical fall (1 pt) Confusion or Disorientation No (0 pts) Intoxicated or Sedated No (0 pts) Impaired Gait Yes (1 pt) Mobility Assist Device Used Yes (1 pt) Altered Elimination No (0 pt) Score/Fall Risk Level 3 or more points = High Risk Oriented to surroundings, Maintained a safe environment, Educated pt \T\ family on fall prevention, incl call for assistance when getting out of bed, Assessed \T\ reinforced patient's understanding of fall precautions, Provided non-skid footwear, Hourly rounding (assess needs \T\ fall precautionary measures) done, Used ambulatory aids as needed (educated on \T\ assisted with), Implemented a Fall Risk Plan of Care, Apply high fall risk patient identification: yellow non skid footwear/ fall signage, Remained with patient while ambulating, Utilized family, sitter, or virtual selling specialist as indicated. Abuse screen: Denies threats or abuse. Denies injuries from another. Nutritional screening: No deficits noted. Tuberculosis screening: No symptoms or risk factors identified. Assessment: 15:25 Reassessment: see triage note. ko1 Vital Signs: 15:15 BP 173 / 54; Pulse 72; Resp 16; Temp 98; Pulse Ox 100% on R/A; ko1 16:16 BP 151 / 57; Pulse 74; Resp 16; Pulse Ox 100% ; ko1 ED Course: 15:14 Patient arrived in ED. sp3 15:14 Iker Hester MD is Attending Physician. sp3 15:20 Stephanie Monet, RN is Primary Nurse. ko1 15:23 Triage completed. ko1 15:24 Arm band placed on right wrist. Patient placed in an exam room, on a stretcher, on ko1 pulse oximetry, Patient notified of wait time. 15:25 Patient has correct armband on for positive identification. Allergy band placed. Fall ko1 risk band placed. Placed in gown. Bed in low position. Call light in reach. Side rails up X2. Provided Education on: xray. Pulse ox on. NIBP on. Door closed. Noise minimized. Lights dimmed. Warm blanket given. Pillow given. 15:30 CT Head C Spine In Process Unspecified. EDMS 15:30 CT Facial Bones W/O Con In Process Unspecified. EDMS 15:56 Ankle Left 3 View XRAY In Process Unspecified. EDMS 15:56 Knee Left 2 View XRAY In Process Unspecified. EDMS 15:58 No provider procedures requiring assistance completed. ko1 16:16 Patient did not have IV access during this emergency room visit. ko1 Administered Medications: No medications were administered Medication: 15:25 VIS not applicable for this client. ko1 Outcome: 16:11 Discharge ordered by . sp3 16:41 Discharged to home via wheelchair, with family, ko1 16:41 Condition: stable 16:41 Discharge instructions given to patient, family, Instructed on discharge instructions, follow up and referral plans. medication usage, Demonstrated understanding of instructions, follow-up care, medications, 16:41 Patient left the ED. ko1 Signatures: Dispatcher [employer] EDMS Iker Hester MD MD sp3 Stephanie Monet, RONAK RN ko1
[2024-11-03 16:47] VITALS: TEMP 98; O2SAT 100
[2024-11-03 16:48] VITALS: BP 151/57
== END 2024-11-03 16:41 | disposition home or self-care (01) ==
LOC: ER 15:11
DX: S00.83XA Contusion of other part of head, initial encounter (principal); S93.402A Sprain of unspecified ligament of left ankle, initial encounter; S83.92XA Sprain of unspecified site of left knee, initial encounter; V00.811A Fall from moving wheelchair (powered), initial encounter; E03.9 Hypothyroidism, unspecified; M32.9 Systemic lupus erythematosus, unspecified
CPT/HCPCS: 70450; 70486; 72125; 76377; 99283